=== PATIENT | male | born 1965 | race Caucasian/White ===

== ENCOUNTER 2021-01-12 01:41 | Emergency (ER) | payer BC, SELFPAY ==
[2021-01-12] VITALS (8 sets, daily range): BP systolic 107–157; BP diastolic 61–103; PULSE 65–89; RESP 15–21; TEMP 36.7–36.9; O2SAT 95–98; BMI 27.1
--- NOTE | 2021-01-12 02:02 | CT_ITS ---
PROCEDURE INFORMATION: Exam: CTA Chest With Contrast Exam date and time: 01/12/2021 2:02 AM Age: 55 years old Clinical indication: Shortness of breath; Right-sided; Prior surgery; Surgery date: 6+ months; Surgery type: Pacemaker; Patient HX: SOA, right sided chest pain, fall a couple of days and and sore under right axilla with bruising TECHNIQUE: Imaging protocol: Computed tomographic angiography of the chest with contrast. 3D rendering (Not supervised by radiologist): MIP and/or 3D reconstructed images were created by the technologist. Radiation optimization: All CT scans at this facility use at least one of these dose optimization techniques: automated exposure control; mA and/or kV adjustment per patient size (includes targeted exams where dose is matched to clinical indication); or iterative reconstruction. Contrast material: ISO 370; Contrast volume: 70 ml; Contrast route: INTRAVENOUS (IV); COMPARISON: 1. CR XR CHEST 2V 01/12/2021 2:[address] LUMBAR SPINE W/O CONTRAST 07/01/2014 5:47:18 PM FINDINGS: Limitations: Exam is limited by respiratory motion. Tubes, catheters and devices: Dual lead left-sided cardiac pacing device. Pulmonary arteries: There is no evidence of peripheral filling defects within the pulmonary arterial circulation to suggest pulmonary embolism. Aorta: The aorta is nonaneurysmal and has a normal appearance. No evidence of dissection. Great vessels off aortic arch: Left subclavian artery unremarkable. Partially visualized left common carotid artery unremarkable. Partially visualized right common carotid artery unremarkable. Innominate artery unremarkable. Right axillary artery not well characterized on this examination due to severe beam hardening artifact from venous contrast injection. Lungs: Right upper lobe calcified and non calcified granulomata. Right hilar calcified nodes. Right upper and right middle lobe parenchymal scarring. Mildly hyperaerated lungs consistent with COPD. No lobar consolidation. Superior segment right lower lobe calcified nodule. Scattered left upper and left lower lobe subpleural nodularity. An example nodule on image 2:269 measures 3 mm and is unchanged versus the prior June [address] It is likely a noncalcified granuloma. On image 2:163 there is a 3 mm left lower lobe subpleural nodule with no prior comparison image available. Pleural spaces: There are no pleural effusions present. Heart: The heart is not enlarged. Coronary artery calcification. There is no evidence of pericardial fluid. Lymph nodes: Subcentimeter right paratracheal and subcarinal mediastinal nodes. Above-mentioned calcified right hilar nodes. Bones/joints: Mild thoracic kyphosis. No rib fracture. Soft tissues: Axillary soft tissues and soft tissues in general unremarkable as visualized. IMPRESSION: 1. Small, subpleural left lung nodules. For patients at low risk (minimal or absent history of smoking and of other known risk factors), no routine follow-up is indicated. For patients at high risk (history of smoking or of other known risk factors), consider optional CT Chest at 12 months. (Reference: Issac) 2. COPD. 3. Right axillary soft tissues unremarkable as visualized. The right axillary artery is not well visualized due to beam hardening artifact from adjacent venous contrast infusion. If there is specifically concerned about axillary artery injury, and ultrasound of the right upper extremity vasculature could be considered. REFERENCES: Issac Smith, et al. Guidelines for Management of Incidental Pulmonary Nodules Detected on CT Images: From the Fleischner Society 2017. Ra
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
--- NOTE | 2021-01-12 02:02 | ECG_ITS ---
APPROVED REPORT Exam: Resting ECG HR:69 bpm ECG Measurements Heart Rate 69 AXES CA 102 P 51 QRSd 72 QRS 70 QT 414 T 78 QTc 443 Conclusion Electronic atrial pacemaker Electronically signed by : Librado Osuna, 01/12/2021 08:50:01
--- NOTE | 2021-01-12 02:02 | XR_ITS ---
PROCEDURE INFORMATION: Exam: XR Chest Exam date and time: 01/12/2021 2:02 AM Age: 55 years old Clinical indication: Shortness of breath; Prior surgery; Surgery date: 6+ months; Patient HX: SOA, HX pacemaker SX, smoker TECHNIQUE: Imaging protocol: XR of the chest. Views: 2 views. COMPARISON: No relevant prior studies available. FINDINGS: Tubes, catheters and devices: Dual lead cardiac pacing device. Lungs: Mildly hyperinflated lungs consistent with COPD. Scattered nonspecific linear opacities particularly in the lingula and right upper lobe. Few granulomata. No lobar consolidation. Pleural spaces: Unremarkable. No pleural effusion. No pneumothorax. Heart/Mediastinum: Unremarkable. No cardiomegaly. Bones/joints: Mildly accentuated thoracic kyphosis. Gastrointestinal tract: Bowel gas pattern unremarkable. Other findings: Patient somewhat dextro rotated. IMPRESSION: 1. COPD. 2. Few lingular and right upper lobe linear opacities may be secondary to scarring or atelectasis.
[2021-01-12 02:15] LABS: Basophils # 0.1 K/mm3 (0-0.2); Basophils % 0.4 % (0.1-2.0); Eosinophils # 0.1 K/mm3 (0.0-0.4); Hematocrit 46.3 % (42.0-52.0); Hemoglobin 15.4 g/dL (14.1-18.0); Lymphocytes # 2.1 K/mm3 (0.7-4.5); Lymphocytes % 18.8 % (10-50); Mean Corpuscular HGB Conc 33.2 g/dL (31.8-35.4); Mean Corpuscular Hemoglobin 31.1 pg (27.0-31.2); Mean Corpuscular Volume 93.7 fl (80-94); Mean Platelet Volume 7.9 fl (7.4-10.4); Monocytes # 0.8 K/mm3 (0.1-1.0); Monocytes % 6.9 % (1.7-9.3); Neutrophils # 8.3 K/mm3 (1.8-7.8); Neutrophils % 72.8 % (37.0-80.0); Platelet Count 218 K/mm3 (142-424); Red Blood Count 4.94 M/mm3 (4.60-6.20); Red Cell Distribution Width 13.3 % (11.5-17.5); White Blood Count 11.3 K/mm3 (4.8-10.8)
[2021-01-12 02:21] LABS: Alanine Aminotransferase 14 U/L (12-78); Alkaline Phosphatase 75 U/L (38-126); Aspartate Amino Transferase 24 U/L (17-59); Bilirubin,Direct 0.4 mg/dl (0.0-0.4); Bilirubin,Total 0.4 mg/dl (0.2-1.3); Bilirubin,Unconjugated 0.1 mg/dL (0.0-1.1); Blood Urea Nitrogen 11 mg/dl (9-20); Calcium 8.5 mg/dl (8.4-10.2); Carbon Dioxide 31 mmol/L (22.0-30.0); Chloride 98 mmol/L (98-107); Creatinine Clearance Estimated 98 mL/min (50-200); Estimated Glomerular Filt Rate 88 ml/min (>60); GFR (African American) 106 ML/MIN (>60); Glucose 103 mg/dl (74-100); Sodium 138 mmol/L (136-145)
[2021-01-12 02:26] LABS: C-Reactive Protein 35.1 mg/L (0-4)
[2021-01-12 02:38] LABS: Troponin I < 0.01 ng/ml (0.00-0.034)
[2021-01-12 02:40] LABS: Procalcitonin 0.074 ng/mL (0.0-2.0)
[2021-01-12 02:46] LABS: Erythrocyte Sedimentation Rate 17 mm/hr (0-20)
--- NOTE | 2021-01-12 04:44 | HMH.EDGENADL ---
ED Disposition Clinical Impression: Lumbar radicular pain, Pacemaker Hematoma of right axilla Qualifiers: Encounter type: initial encounter Qualified Code(s): S40.021A - Contusion of right upper arm, initial encounter Disposition: Home, Self-Care Condition on Discharge: Good Instructions: DI for Chronic Pain -- Adult Additional Instructions: see pcp for follow up Prescriptions: predniSONE [Prednisone 20mg Tab] 20 mg PO BID #10 tab Transmission Status: Pending to [facility]/pharmacy #[id number] Referrals: Provider,Referral, [Primary Care Provider] - - Critical Care Critical Care Time: No Attestation: On 01/12/21, the high probability of a clinically significant, sudden or life threatening deterioration of the following system(s) required my full and direct attention, intervention and personal management. The time I documented below is in addition to time spent performing reported procedures but includes the following listed in this critical care notation. Medical Decision Making - Medical Records Medical records reviewed: Yes: I reviewed the patient's medical records. - Real Inquiry Pt receiving controlled substance: No Vital Signs: 01/12/21 01:43 01/12/21 02:01 01/12/21 02:31 Temperature 98.1 F Temperature Source Oral Pulse Rate 68 73 Pulse Rate [Left Radial] 65 Respiratory Rate 21 Blood Pressure 136/79 108/62 L Blood Pressure [Right Arm] 150/103 H Blood Pressure Mean Blood Pressure Mean [Right Arm] 118 Blood Pressure Source [Right Arm] Automatic Cuff Blood Pressure Position [Right Arm] Sitting 02 Sat by Pulse Oximetry 97 97 98 Oxygen Delivery Method Room Air 01/12/21 03:30 01/12/21 04:00 01/12/21 04:30 Temperature Temperature Source Pulse Rate 65 72 74 Pulse Rate [Left Radial] Respiratory Rate Blood Pressure 109/61 L 107/70 L 114/73 Blood Pressure [Right Arm] Blood Pressure Mean 77 81 Blood Pressure Mean [Right Arm] Blood Pressure Source [Right Arm] Blood Pressure Position [Right Arm] 02 Sat by Pulse Oximetry 97 97 95 Oxygen Delivery Method Room Air - Lab Data Lab results reviewed: Yes: I reviewed the patient's lab results. Lab Results 01/12/21 02:06: WBC 11.3 H, RBC 4.94, Hgb 15.4, Hct 46.3, MCV 93.7, MCH 31.1, MCHC 33.2, RDW 13.3, Plt Count 218, MPV 7.9, Neut % (Auto) 72.8, Lymph % (Auto) 18.8, [place] % (Auto) 6.9, Eos % (Auto) 1.0, Baso % (Auto) 0.4, Neut # (Auto) 8.3 H, Lymph # (Auto) 2.1, [place] # (Auto) 0.8, Eos # (Auto) 0.1, Baso # (Auto) 0.1, ESR 17 01/12/21 02:06: Sodium 138, Potassium 4.0, Chloride 98, Carbon Dioxide 31 H, Anion Gap 13.0, BUN 11, Creatinine 0.90, Estimated Creat Clear 98, Estimated GFR 88, Est GFR ( Amer) 106, Glucose 103 H, Calcium 8.5, Total Bilirubin 0.4, Direct Bilirubin 0.4, Conjugated Bilirubin 0.0, Indirect Bilirubin 0.0, Unconjugated Bilirubin 0.1, AST 24, ALT 14, Alkaline Phosphatase 75, Troponin I < 0.01, C-Reactive Protein 35.1 H, Total Protein 7.0, Albumin 4.0, Procalcitonin 0.074 Result diagrams: 01/12/21 02:06 01/12/21 02:06 Orders (Tests/Meds): ED MEDICATIONS Generic Name Dose Route Start Last Admin Trade Name Freq PRN Reason Stop Dose Admin Sodium Chloride 1,000 mls @ 999 mls/hr 01/12/21 02:15 01/12/21 02:16 Sod Chlor 0.9% 1000ml Bag IV 01/12/21 03:15 999 mls/hr .Q1H1M VI Administration Discontinued Medications Generic Name Dose Route Start Last Admin Trade Name Freq PRN Reason Stop Dose Admin Iopamidol 70 ml 01/12/21 03:09 01/12/21 03:10 Iopamidol-370 (76%);100ml Bottle IV 01/12/21 03:10 70 ml ONCE ONE Administration Ketorolac Tromethamine 30 mg 01/12/21 02:09 01/12/21 02:16 Ketorolac 30mg/Ml Vial IV 01/12/21 02:10 30 mg ONCE ONE Administration Methylprednisolone Sodium Succinate 125 mg 01/12/21 02:09 01/12/21 02:16 Methylprednisolone Sod Succ 125mg Vial IV 01/12/21 02:10 125 mg ONCE ONE Administration Sodium Chloride 50 m
== END 2021-01-12 05:23 | disposition home or self-care (01) ==
PROVIDERS: Emergency Provider Emergency Medicine
DX: S40.021A Contusion of right upper arm, initial encounter (principal); W01.0XXA Fall on same level from slipping, tripping and stumbling without subsequent striking against object, initial encounter; Y92.9 Unspecified place or not applicable; M54.16 Radiculopathy, lumbar region; Z95.0 Presence of cardiac pacemaker; J44.9 Chronic obstructive pulmonary disease, unspecified; E78.5 Hyperlipidemia, unspecified; I25.10 Atherosclerotic heart disease of native coronary artery without angina pectoris; Z88.0 Allergy status to penicillin; F17.210 Nicotine dependence, cigarettes, uncomplicated
CPT/HCPCS: 71046; 71275; 72131; 80048; 80076; 84145; 84484; 85025; 85651; 86140; 93005; 96365; 96375; 99283; Q9967

== ENCOUNTER → 2021-02-10 11:02 | Outpatient (POV) | payer BC, SELFPAY ==
[2021-02-10 11:25] VITALS: BP 146/107; PULSE 79; RESP 18; O2SAT 96; BMI 31.9
--- NOTE | 2021-02-10 11:25 | HMH.PMCON ---
Assessment and Plan (1) Degenerative joint disease (DJD) of lumbar spine Status: Chronic Category: Medical Code(s): M47.816 - Spondylosis without myelopathy or radiculopathy, lumbar region (2) Lumbar radiculopathy Status: Chronic Category: Medical Code(s): M54.16 - Radiculopathy, lumbar region - Assessment and plan all Dx Assessment and Plan for all problems:: Patient is not interested in interventional therapies in the clinic. He is requesting oral medications. Patient was dismissed from a spine center due to a failed drug screen with fentanyl noted in the drug screen. He was getting oxycodone at that time. Patient has been advised if he does change his mind regarding interventional therapies in the future we will be happy to see him for injections in the clinic. Patient has been instructed to contact the clinic with any concerns before the next appointment. Dr. Godinez has reviewed this note and agrees with this plan of care. This note was dictated using voice recognition software and make contain errors or omissions. HPI - Data of Consult Patient: new to practice Consult date: 02/10/21 Requesting Physician: Shereen Gillespie APRN Primary Care Provider: Tomeka Callahan MD - Consult Narrative Reason for consult: Low back pain, leg pain History of present illness: Mr. Matt is a 55 year old male who presents today for consult for chronic low back pain and leg pain. Patient says the pain has been ongoing for many years. He says that the pain radiates into his left leg causing him to have numbness and tingling as well as frequent falls due to the pain. He rates his pain 7 out of 10. He has managed with oxycodone in the past, however, according to his records he was discharged from a spine center on 01/28/2021 due to having fentanyl in his drug screen. Patient says he has tried injective therapy in the past with no significant relief. We did discuss that we are interventional only and can only provide him with interventional therapies such as injections and implanted devices for which she is not interested in. Patient says that he will do injections if we give him pills since injections do not work . Patient has been advised that we cannot do this. He has not been compliant at his previous pain management clinic with oral medications. He is not interested in further treatment options in our clinic at this time. CC: Shereen Gillespie APRN [facility] History I have reviewed the patient's past medical history: Yes Medical History: Reports:: Chronic Obstructive Pulmonary Disease (COPD), Coronary Artery Disease, Hyperlipidemia *Have you ever received a pneumonia vaccine?: No *Have you received a flu vaccine this season?: No Other Surgeries: Yes: Cardiac Catheterization Amputation: No Fractures: No - *Social History Smoking Status: Current every day smoker Tobacco Type: cigarettes Alcohol Intake: never Alcohol Intake Frequency:: 0-2 drinks per day Substance Use Type: denies use *Occupational Status:: retired Housing: house Household Members: family *Travel in the last 8 weeks: None Family Hx:: Non-contributory Review of Systems - Review of Systems Review of Systems General: No recent weight changes, no fever, no sleep disturbances Respiratory: No cough, no shortness of air, no recurring pulmonary infections Cardiovascular/peripheral vascular: No chest pain, no palpitations, no edema, no shortness of breath Gastrointestinal: No new onset incontinence, normal bowel movements reported Genitourinary: No new onset incontinence Musculoskeletal: Low back pain, bilateral leg pain Psychiatric: Normal mood/affect Neurological: [Denies weakness in extremities], [denies balance issues] Meds Home Medications Medication Instructions Recorded Confirmed Type albuterol sulfate 90 mcg/actuation 2 puff INHALATION Q6H PRN #6.7 g 09/10/18 01/12/21 Rx aerosol inhaler apixaban 2.5 mg tablet 2.5 mg P
== END ==
PROVIDERS: PCP Family Medicine; Visit Provider Clinical Nurse Specialist Family Health
DX: M47.896 Other spondylosis, lumbar region (principal); M54.16 Radiculopathy, lumbar region
CPT/HCPCS: 99202; G0463

== ENCOUNTER 2023-08-24 21:47 | Inpatient (IN) | payer BC, SELFPAY ==
[2023-08-24] VITALS (7 sets, daily range): BP systolic 104–122; BP diastolic 72–82; PULSE 80–98; RESP 18–28; TEMP 36.8; O2SAT 86–100; BMI 20.7
--- NOTE | 2023-08-24 21:52 | ECG_ITS ---
APPROVED REPORT Exam: Resting ECG HR:94 bpm ECG Measurements Heart Rate 94 AXES GA 152 P 84 QRSd 85 QRS 77 QT 351 T 92 QTc 403 Conclusion SINUS RHYTHM WITH OCCASIONAL SUPRAVENTRICULAR PREMATURE COMPLEXES BORDERLINE ECG UNCONFIRMED REPORT Electronically signed by : Librado Osuna MD 08/25/2023 08:36:20
--- NOTE | 2023-08-24 21:54 | XR_ITS ---
PROCEDURE INFORMATION: Exam: XR Chest Exam date and time: 08/24/2023 9:58 PM Age: 58 years old Clinical indication: Shortness of breath; Additional info: SOA, copd exacerbation TECHNIQUE: Imaging protocol: Radiologic exam of the chest. Views: 1 view. Total images: 1 COMPARISON: CT ANGIO CHEST 01/12/2021 2:53 AM FINDINGS: Tubes, catheters and devices: Status post left subclavian cardiac pacemaker. EKG leads are present. Lungs: Emphysema/COPD. Interval mild accentuation of bibasilar interstitial markings concerning for acute pneumonitis or edema. No confluent airspace consolidation or pulmonary vascular congestion. Pleural spaces: Unremarkable. No pleural effusion. No pneumothorax. Heart/Mediastinum: Unremarkable. No cardiomegaly. No mediastinal widening or hilar enlargement. Bones/joints: Remote fractures multiple left ribs. IMPRESSION: 1. Interval mild accentuation of bibasilar interstitial markings concerning for acute pneumonitis or edema. 2. Emphysema/COPD.
--- NOTE | 2023-08-24 21:56 | ED_ITS ---
Discharge Plan Disposition Patient Disposition: Home, Self-Care Chief Complaint: Shortness of Breath/Dyspnea Prescriptions Prescriptions: No Action atorvastatin 40 mg tablet 40 mg PO HS Patient Comments: TAKE 1 TABLET BY MOUTH EVERY DAY AT NIGHT ropinirole 1 mg tablet 1 mg PO HS Patient Comments: TAKE 1 TABLET BY MOUTH EVERY DAY AT NIGHT ipratropium-albuterol 0.5 mg-3 mg(2.5 mg base)/3 mL solution for nebulization 3 ml INHALATION Q6HP PRN (Reason: Breathing Problems) Patient Comments: INHALE CONTENTS OF 1 VIAL (3 ML) BY NEBULIZATION EVERY 6 HOURS NEEDED FOR SHORTNESS OF BREATH. sotalol 80 mg tablet 80 mg PO BID Patient Comments: TAKE 1 TABLET BY MOUTH TWICE A DAY oxycodone-acetaminophen 10-325 mg tablet 1 tab PO TIDP PRN (Reason: Pain, Moderate) Patient Comments: TAKE 1 TABLET BY MOUTH EVERY 8 HOURS NEEDED FOR CHRONIC PAIN gabapentin 800 mg tablet 800 mg PO TID Patient Comments: TAKE 1 TABLET BY MOUTH THREE TIMES A DAY levothyroxine 50 mcg tablet 50 mcg PO AM Patient Comments: TAKE 1 TABLET BY MOUTH EVERY DAY BEFORE BREAKFAST ferrous sulfate 325 mg (65 mg iron) tablet 325 mg PO BID Patient Comments: TAKE 1 TABLET BY MOUTH 2 TIMES DAILY (WITH MEALS). albuterol sulfate [Ventolin HFA] 90 mcg/actuation HFA aerosol inhaler 2 inh INHALATION Q4HP PRN (Reason: Breathing Problems) Patient Comments: INHALE 2 PUFFS BY MOUTH EVERY 4 HOURS NEEDED FOR WHEEZE STRENGTH: 90 MCG/ACTUATION Eliquis 5 mg tablet 5 mg PO BID Patient Comments: TAKE 1 TABLET BY MOUTH TWICE A DAY NO MORE REFILLS WITHOUT AN APPOINTMENT Trelegy Ellipta 200-62.5-25 mcg blister with device 1 inh INHALATION DAILY Patient Comments: INHALE 1 PUFF BY MOUTH EVERY DAY Referrals Follow up/Referrals: Provider,Referral, MD [Referring] - See instructions Clinical Impressions Clinical Impression: Acute on chronic respiratory failure with hypoxemia, Pneumonia, Acute exacerbation of chronic obstructive pulmonary disease Discharge ED Provider: Douglas Sharp HPI General Chief Complaint: Shortness of Breath/Dyspnea Stated Complaint: breathing problems Time Seen by Provider: 08/24/23 21:53 History of Present Illness HPI narrative: 58-year-old male with history of COPD on 3 to 4 L nasal cannula home hypertension, hyperlipidemia,, CHF status post AICD placement currently on Eliquis twice daily, hypothyroidism, chronic neck and back pain presenting with EMS for being found unconscious. EMS states that they received a call that patient was down and unconscious. They arrived, saturating 53% on room air and cyanotic, largely unresponsive. Blood glucose was around 120. Use [id number] on patient, give DuoNebs, patient became more responsive after the on the way. Patient has no complaints on arrival. Related Data Home Medications Medication Instructions Recorded Confirmed albuterol sulfate 90 mcg/actuation 2 inh inhalation Q4HP PRN 08/24/23 08/24/23 aerosol inhaler (Ventolin HFA) Breathing Problems apixaban 5 mg tablet (Eliquis) 5 mg PO BID 08/24/23 08/24/23 atorvastatin 40 mg tablet 40 mg PO HS 08/24/23 08/24/23 ferrous sulfate 325 mg (65 mg 325 mg PO BID 08/24/23 08/24/23 iron) tablet fluticasone fur. 200 mcg-umeclid 1 inh inhalation DAILY 08/24/23 08/24/23 62.5 mcg-vilant 25 mcg inhalat.powder (Trelegy Ellipta) gabapentin 800 mg tablet 800 mg PO TID 08/24/23 08/24/23 ipratropium 0.5 mg-albuterol 3 mg 3 ml inhalation Q6HP PRN Breathing 08/24/23 08/24/23 (2.5 mg base)/3 mL nebulization Problems soln levothyroxine 50 mcg tablet 50 mcg PO AM 08/24/23 08/24/23 oxycodone-acetaminophen 10 mg-325 1 tab PO TIDP PRN Pain, Moderate 08/24/23 08/24/23 mg tablet ropinirole 1 mg tablet 1 mg PO HS 08/24/23 08/24/23 sotalol 80 mg tablet 80 mg PO BID 08/24/23 08/24/23 Allergies Allergy/AdvReac Type Severity Reaction Status Date / Time PENICILLIN Allergy Unknown S-DIFF. Uncoded 07/27/17 14:03 [facility] Disclaimer: The information contained in this section may have been updated after the kiley tao was seen, as this information can be updated by other users. Social History Smoking Status: Unknown if ever smoked alcohol intake: never substance use type: denies use current occupational status: unemployed Travel in the last 8 weeks: None household members: family housing: house ROS Obtained: Yes All systems reviewed & no additional complaints except as documented Physical Exam General General appearance: alert and lethargic Neck Neck exam: Present trachea midline Chest Chest inspection: Present normal inspection and symmetric chest wall rise Respiratory Respiratory exam: Present other (Decreased breath sounds with minimal air movement bilaterally); Absent respiratory distress, wheezes, stridor, accessory muscle use or prolonged expiratory phase Cardiovascular Cardiovascular exam: Present regular rate and normal rhythm Extremities Exam Extremities exam: Absent edema Neurological Exam Neurological exam: Present alert, oriented X3 and CN II-XII intact Skin Skin exam: Present warm and dry; Absent cyanosis, diaphoresis or pallor HEART Score HEART Score HEART Score assessment performed?: Yes HEART Score: 4 Critical Care Critical Care Time Critical Care Time: Yes (resp) Attestation: On 08/24/23, the high probability of a clinically significant, sudden or life threatening deterioration of the following system(s) required my full and direct attention, intervention and personal management. The time I documented below is in addition to time spent performing reported procedures but includes the following listed in this critical care notation. Total Time Total Critical Care Time: 60 Medical Decision Making Medical Records Medical records reviewed: Yes I reviewed the patient's medical records. Real Inquiry Pt receiving controlled substance: No Real was queried for this patient: No Vital Signs Vital Signs: 08/24/23 21:56 08/24/23 22:05 08/24/23 22:30 Temperature 98.3 F Temperature Source Oral Pulse Rate 98 H 92 H Pulse Rate [Right Radial] 96 H Respiratory Rate 28 H 25 H 26 H Blood Pressure 122/82 115/75 Blood Pressure [Left Arm] 122/82 Blood Pressure Mean [Left Arm] 95 Blood Pressure Source [Left Arm] Automatic Cuff Blood Pressure Position [Left Arm] Sitting 02 Sat by Pulse Oximetry 100 86 L 93 L Oxygen Delivery Method Non-Rebreather Non-Rebreather BiPAP Oxygen Flow Rate (LPM) 15 Lab Data Labs: Lab Results 08/24/23 21:53: VBG pH 7.20 L, VBG pCO2 135.9 H, VBG pO2 39.8, VBG HCO3 52.0 H, VBG Total CO2 56.2 H, VBG O2 Saturation 75.8 H, VBG Base Excess 24.0 H 08/24/23 21:56: WBC 14.4 H, RBC 4.75, Hgb 14.8, Hct 45.6, MCV 95.9 H, MCH 31.1, MCHC 32.4, RDW 13.8, Plt Count 198, MPV 7.9, Neut % (Auto) 53.5, Lymph % (Auto) 40.1, [place] % (Auto) 4.6, Eos % (Auto) 1.1, Baso % (Auto) 0.7, Neut # (Auto) 7.7, Lymph # (Auto) 5.8 H, [place] # (Auto) 0.7, Eos # (Auto) 0.2, Baso # (Auto) 0.1, So dium 138, Potassium 3.8, Chloride 82 L, Carbon Dioxide 55 H*, Anion Gap 4.8 L, BUN 7 L, Creatinine 0.50 L, Estimated Creat Clear 152, Estimated GFR 171, Est GFR ( Amer) 207, Glucose 127 H, Lactate 0.8, Calcium 8.5, Total Bilirubin 0.4, AST 25, ALT 12, Alkaline Phosphatase 110, Troponin I < 0.01, NT-Pro-B Natriuret Pep 374 H, Total Protein 6.6, Albumin 3.3 L, Globulin 3.3 H, Albumin/Globulin Ratio 1.0 L 08/24/23 22:40: VBG pH 7.32, VBG pCO2 86.0 H, VBG pO2 37.6, VBG HCO3 43.2 H, VBG Total CO2 45.9 H, VBG O2 Saturation 78.9 H, VBG Base Excess 17.1 H 08/24/23 21:56 08/24/23 21:56 Response Orders (Tests/Meds): ED MEDICATIONS Generic Name Dose Route Start Last Admin Trade Name Freq PRN Reason Stop Dose Admin Acetaminophen 650 mg 08/24/23 22:52 Acetaminophen 325mg Tab PO 09/23/23 22:51 Q4HP PRN Fever or Mild Pain (1-3) Enoxaparin Sodium 40 mg 08/25/23 09:00 Enoxaparin 40mg/0.4ml Syringe SQ 09/24/23 08:59 DAILY VI Lactated Ringer's 1,000 mls @ 999 mls/hr 08/24/23 22:15 08/24/23 22:43 Lactated Ringer's 1000 Ml Bag IV 08/24/23 23:15 999 mls/hr .Q1H1M ONE Administration Ceftriaxone Sodium 2 gm/ 100 mls @ 200 mls/hr 08/24/23 22:31 08/24/23 22:43 Sodium Chloride IV 08/24/23 23:00 200 mls/hr ONCE ONE Administration Sodium Chloride 1,000 mls @ 50 mls/hr 08/24/23 23:00 Sod Chlor 0.9% 1000ml Bag IV 09/23/23 22:59 .Q20H VI Levofloxacin/Dextrose 750 mg in 150 mls @ 100 mls/hr 08/24/23 23:00 Levofloxacin 750mg/150ml Premix IV 09/03/23 22:59 Q24H VI Morphine Sulfate 2 mg 08/24/23 22:52 Morphine 2mg/Ml Syringe IV 09/23/23 22:51 Q2HP PRN Severe Pain (7-10) Ondansetron HCl 4 mg 08/24/23 22:52 Ondansetron 4mg/2ml Vial IV 09/23/23 22:51 Q8HP PRN Nausea Pantoprazole Sodium 40 mg 08/25/23 21:00 Pantoprazole 40mg Vial IV 09/24/23 20:59 HS VI Discontinued Medications Generic Name Dose Route Start Last Admin Trade Name Freq PRN Reason Stop Dose Admin Albuterol/Ipratropium 6 ml 08/24/23 21:53 Ipratropium/Albuterol 3 Ml Neb IH 08/24/23 21:54 ONCE ONE Aspirin 324 mg 08/24/23 21:53 08/24/23 22:02 Aspirin 81mg Chewable Tablet PO 08/24/23 21:54 324 mg ONCE ONE Administration Magnesium Sulfate 2 gm in 50 mls @ 50 mls/hr 08/24/23 21:53 08/24/23 22:03 Magnesium Sulfate 2gm/50ml Premix IV 08/24/23 22:52 50 mls/hr ONCE ONE Administration Methylprednisolone Sodium Succinate 125 mg 08/24/23 21:53 08/24/23 22:07 Methylprednisolone Sod Succ 125mg Vial IV 08/24/23 21:54 Not Given ONCE ONE ORDERS Category Date Time Status Pulmonology Consult [Consult to Pulmonology] [CONS] Cons 08/24/23 22:52 Active Routine XR chest portable Stat Exams 08/24/23 21:54 Completed Brain Natriuretic Peptide Stat Lab 08/24/23 21:56 Completed Complete Blood Count Auto Diff AMLAB Lab 08/25/23 06:00 Ordered Complete Blood Count Auto Diff Stat Lab 08/24/23 21:56 Completed Comprehensive Metabolic Panel AMLAB Lab 08/25/23 06:00 Ordered Comprehensive Metabolic Panel Stat Lab 08/24/23 21:56 Completed Lactic Acid Stat Lab 08/24/23 21:56 Completed Magnesium AMLAB Lab 08/25/23 06:00 Ordered Troponin I Q3H Lab 08/25/23 01:00 Ordered Troponin I Q3H Lab 08/25/23 04:00 Ordered Troponin I Stat Lab 08/24/23 21:56 Completed Blood Culture Stat Micro 08/24/23 22:23 Received VBG [Venous Blood Gas] Stat RT 08/24/23 21:53 Completed Venous Blood Gas Routine RT 08/24/23 22:40 Completed 12-lead EKG Request [ECG Request] Stat Y 08/24/23 22:06 Ordered MDM Narrative Medical Decision Narrative: 58-year-old male with history of COPD on 3 to 4 L nasal cannula home hypertensi on, hyperlipidemia,, CHF status post AICD placement currently on Eliquis twice daily, hypothyroidism, chronic neck and back pain presenting with EMS for being found unconscious. EMS states that they received a call that patient was down and unconscious. They arrived, saturating 53% on room air and cyanotic, largely unresponsive. Blood glucose was around 120. Use [id number] on patient, give DuoNebs, patient became more responsive after the on the way. Patient has no complaints on arrival. History was obtained via conversation with patient, EMS, chart review. On arrival, patient hemodynamically stable, alert, [oriented x4, ][appropriate, ]GCS [15], moving all extremities spontaneously, pupils equal and reactive to light. Full physical exam performed and significant for tired appearing male, no longer cyanotic. Answering questions appropriately. Decreased, near silent breath sounds bilaterally and hyperexpanded chest. Cardiac exam within normal limits. Patient has end-tidal CO2 measuring 70-80. Normotensive, nontachycardic. Differential includes COPD exacerbation, bronchitis, pneumonia, pneumothorax, sepsis, hypoxemic respiratory failure, hypercarbic respiratory failure, among others. Patient was given DuoNeb x 4, magnesium sulfate, Solu-Medrol, fluid bolus, BiPAP for symptomatic management[ and correction of underlying abnormalities]. Workup independently interpreted and significant for respiratory acidosis with pH 7.2 and CO2 greater than 130. Bicarb elevated at 42. Leukocytosis 14.4, kidney function within normal limits. Troponin and BNP normal. Chest x-ray with concern for pneumonia. See radiology read for full review of final results. [Independent interpretation of EKG shows] sinus rhythm [address] or T wave changes concerning for acute ischemia. Intervals within normal limits. On reevaluation, patient states he is breathing much easier. Breath sounds are little more clear bilaterally. Repeat VBG much improved with pH 7.32, CO2 86, oxygen normalized. Hospital medicine was contacted for evaluation for admission for COPD exacerbation. Patient was given 2 g ceftriaxone and fluid bolus. Given patient presentation, workup, history, this most likely represents hypoxemic respiratory failure in the setting of COPD exacerbation secondary to pneumonia. Because patient high risk for clinical decompensation, deemed appropriate for inpatient admission. Results were relayed to patient who voiced understanding and patient was agreeable to inpatient admission and management. Patient was admitted to the hospital for further definitive management.
[2023-08-24] MEDS: IPRATROPIUM/ALBUTEROL 3 ML NEB 6 ML IH (22:00)
[2023-08-24 22:01] LABS: VBG Oxygen Saturation 75.8 % (50-70); VBG PO2 39.8 mmol/L (28-40); VBG Total CO2 56.2 mmol/L (23-27)
--- NOTE | 2023-08-24 22:01 | PC.NURSE ---
rt and rad at bedside. md at bedside
[2023-08-24] MEDS: ASPIRIN 81MG CHEWABLE TABLET 324 MG PO (22:02)
[2023-08-24 22:03] LABS: VBG PCO2 135.9 mmol/L (35-51)
[2023-08-24] MEDS: MAGNESIUM SULFATE IN WATER 2 GM/50 ML PIGGYBACK IV (22:03)
--- NOTE | 2023-08-24 22:05 | PC.NURSE ---
VBG given to RT, and pt placed on BIPAP
--- NOTE | 2023-08-24 22:07 | PC.NURSE ---
BIPAP settings 20/10 RR18 FIO2 40%
[2023-08-24 22:15] LABS: Basophils # 0.1 K/mm3 (0-0.2); Basophils % 0.7 % (0.1-2.0); Eosinophils # 0.2 K/mm3 (0.0-0.4); Eosinophils % 1.1 % (0.1-12.0); Hematocrit 45.6 % (42.0-52.0); Hemoglobin 14.8 g/dL (14.1-18.0); Lymphocytes # 5.8 K/mm3 (0.7-4.5); Lymphocytes % 40.1 % (10-50); Mean Corpuscular HGB Conc 32.4 g/dL (31.8-35.4); Mean Corpuscular Hemoglobin 31.1 pg (27.0-31.2); Mean Corpuscular Volume 95.9 fl (80-94); Mean Platelet Volume 7.9 fl (7.4-10.4); Monocytes # 0.7 K/mm3 (0.1-1.0); Monocytes % 4.6 % (1.7-9.3); Neutrophils # 7.7 K/mm3 (1.8-7.8); Neutrophils % 53.5 % (37.0-80.0); Platelet Count 198 K/mm3 (142-424); Red Blood Count 4.75 M/mm3 (4.60-6.20); Red Cell Distribution Width 13.8 % (11.5-17.5); White Blood Count 14.4 K/mm3 (4.8-10.8)
[2023-08-24 22:16] LABS: Chloride 82 mmol/L (98-107); Potassium 3.8 mmoL/L (3.5-5.1); Sodium 138 mmol/L (136-145)
[2023-08-24 22:18] LABS: Alanine Aminotransferase 12 U/L (12-78); Aspartate Amino Transferase 25 U/L (17-59); Blood Urea Nitrogen 7 mg/dl (9-20); Creatinine Clearance Estimated 152 mL/min (50-200); Estimated Glomerular Filt Rate 171 ml/min (>60); GFR (African American) 207 ML/MIN (>60)
[2023-08-24 22:19] LABS: Albumin Level 3.3 g/dl (3.5-5.0); Alkaline Phosphatase 110 U/L (38-126); Bilirubin,Total 0.4 mg/dl (0.2-1.3); Calcium 8.5 mg/dl (8.4-10.2); Globulin 3.3 g/dL (1.3-3.2); Glucose 127 mg/dl (74-100); Total Protein,Serum 6.6 g/dl (6.3-8.2)
[2023-08-24 22:28] LABS: NT Pro Brain Natriuretic Pep. 374 pg/mL (0-125)
[2023-08-24 22:34] LABS: Troponin I < 0.01 ng/ml (0.00-0.034)
[2023-08-24 22:41] LABS: Lactic Acid 0.8 mmol/L (0.7-2.1)
[2023-08-24] MEDS: CEFTRIAXONE SODIUM 2 GM in 0.9 % SODIUM CHLORIDE 100 ML IV (22:43)
[2023-08-24] MEDS: LACTATED RINGERS 1000ML 1,000 ML 999 ML IV (22:43)
[2023-08-24 22:44] LABS: VBG Base Excess 17.1 mmol/L (-2.4-2.3); VBG HCO3 43.2 mmol/L (23-30); VBG Oxygen Saturation 78.9 % (50-70); VBG PH 7.32 mmol/L (7.31-7.41); VBG PO2 37.6 mmol/L (28-40); VBG Total CO2 45.9 mmol/L (23-27)
[2023-08-24 22:50] LABS: Anion Gap 4.8 mEq/L (5-15); Carbon Dioxide 55 mmol/L (22.0-30.0)
--- NOTE | 2023-08-24 22:51 | PC.NURSE ---
spoke with house re: admission. waiting on bed assignment at this time.
--- NOTE | 2023-08-24 22:51 | PC.NURSE ---
Respiratory called and advised new CO2 just came back at 86. Dr. Sharp informed
--- NOTE | 2023-08-24 22:54 | P.HP_ITS ---
History of Present Illness *Admission Date: 08/24/23 *Reason for visit:: SOB *History of present illness: This is a 58-year-old male PMHx of COPD on 3 to 4 L nasal cannula home, current smoker, hypertension, hyperlipidemia,, CHF, AICD placement currently on Eliquis twice daily, hypothyroidism, chronic neck and back pain brought in by EMS for evaluation of shortness of breath. Per ER documentation EMS stated that they received a call that patient was down and unconscious. They arrived, saturating 53% on room air and cyanotic, largely unresponsive. Blood glucose was around 120. Use [id number] on patient, give DuoNebs, patient became more responsive after the on the way. Patient has no complaints on arrival. Patient stated he was feeling bad and asked daugther to call for help, but he denied loss of consciousness. Admitted for further treatment and management. [facility] Disclaimer: The information contained in this section may have been updated after the patient was seen, as this information can be updated by other users. Medical History (Updated 08/25/23 @ 11:16 by Lourdes Lua APRN) Asthma COPD (chronic obstructive pulmonary disease) Social History (Updated 08/25/23 @ 00:46 by Flores Avendano RN) Smoking Status: Current some day smoker tobacco type: cigarettes packs per day: 3 alcohol intake: never substance use type: denies use current occupational status: unemployed Travel in the last 8 weeks: None household members: family housing: house Review of Systems Review of Systems Review of systems:: pertinent systems reviewed and negative unless documented below Meds Home Medications and Allergies Home Medications Medication Instructions Recorded Confirmed Type albuterol sulfate 90 mcg/actuation 2 inh inhalation Q4HP PRN 08/24/23 08/25/23 History aerosol inhaler (Ventolin HFA) Shortness Of Breath Or Wheezing apixaban 5 mg tablet (Eliquis) 5 mg PO BID 08/24/23 08/25/23 History atorvastatin 40 mg tablet 40 mg PO HS 08/24/23 08/25/23 History ferrous sulfate 325 mg (65 mg 325 mg PO BIDWMEAL 08/24/23 08/25/23 History iron) tablet fluticasone fur. 200 mcg-umeclid 1 inh inhalation DAILY 08/24/23 08/25/23 History 62.5 mcg-vilant 25 mcg inhalat.powder (Trelegy Ellipta) gabapentin 800 mg tablet 800 mg PO TID 08/24/23 08/25/23 History ipratropium 0.5 mg-albuterol 3 mg 3 ml inhalation Q6H PRN Shortness 08/24/23 08/25/23 History (2.5 mg base)/3 mL nebulization Of Breath Or Wheezing soln levothyroxine 50 mcg tablet 50 mcg PO AM 08/24/23 08/25/23 History ropinirole 1 mg tablet 1 mg PO HS 08/24/23 08/25/23 History sotalol 80 mg tablet 80 mg PO BID 08/24/23 08/25/23 History acetylcysteine 600 mg capsule 600 mg PO BID 08/25/23 08/25/23 History furosemide 40 mg tablet 40 mg PO DAILY 08/25/23 08/25/23 History guaifenesin 600 mg tablet, 600 mg PO BID 08/25/23 08/25/23 History extended release 12 hr naloxone 4 mg/actuation nasal spray 4 mg intranasal Q2M PRN Opioid 08/25/23 08/25/23 History Reversal oxycodone-acetaminophen 10 mg-325 1 tab PO TID PRN Chronic Pain 08/25/23 08/25/23 History mg tablet potassium chloride 10 mEq 10 meq PO AM 08/25/23 08/25/23 History tablet,extended release sulfamethoxazole 800 1 tab PO Q12H 08/25/23 08/25/23 History mg-trimethoprim 160 mg tablet New Prescriptions to Start Prescriptions: Allergies Allergy/AdvReac Type Severity Reaction Status Date / Time Penicillins Allergy Difficulty Verified 08/25/23 07:12 Breathing Exam Data for Last 24 hours Vital signs and Labs for Last 24 Hours: Temp Pulse Resp BP Pulse Ox O2 Del Method O2 Flow Rate 98.3 F 92 H 26 H 115/75 93 L BiPAP 15 08/24/23 21:56 08/24/23 22:30 08/24/23 22:30 08/24/23 22:30 08/24/23 22:30 08/24/23 22:30 08/24/23 22:05 FiO2 100 08/24/23 21:56 Laboratory Results - last 24 hr 08/24/23 21:53: VBG pH 7.20 L, VBG pCO2 135.9 H, VBG pO2 39.8, VBG HCO3 52.0 H, VBG Total CO2 56.2 H, VBG O2 Saturation 75.8 H, VBG Base Excess 24.0 H 08/24/23 21:56: WBC 14.4 H, RBC 4.75, Hgb 14.8, Hct 45.6, MCV 95.9 H, MCH 31.1, MCHC 32.4, RDW 13.8, Plt Count 198, MPV 7.9, Neut % (Auto) 53.5, Lymph % (Auto) 40.1, [place] % (Auto) 4.6, Eos % (Auto) 1.1, Baso % (Auto) 0.7, Neut # (Auto) 7.7, Lymph # (Auto) 5.8 H, [place] # (Auto) 0.7, Eos # (Auto) 0.2, Baso # (Auto) 0.1, Sodium 138, Potassium 3.8, Chloride 82 L, Carbon Dioxide 55 H*, Anion Gap 4.8 L, BUN 7 L, Creatinine 0.50 L, Estimated Creat Clear 152, Estimated GFR 171, Est GFR ( Amer) 207, Glucose 127 H, Lactate 0.8, Calcium 8.5, Total Bilirubin 0.4, AST 25, ALT 12, Alkaline Phosphatase 110, Troponin I < 0.01, NT-Pro-B Natriuret Pep 374 H, Total Protein 6.6, Albumin 3.3 L, Globulin 3.3 H, Albumin/Globulin Ratio 1.0 L 08/24/23 22:40: VBG pH 7.32, VBG pCO2 86.0 H, VBG pO2 37.6, VBG HCO3 43.2 H, VBG Total CO2 45.9 H, VBG O2 Saturation 78.9 H, VBG Base Excess 17.1 H I & O for Last 24 hours: Intake & Output 08/21/23 08/22/23 08/23/23 08/24/23 23:59 23:59 23:59 23:59 Weight 65.771 kg Constitutional Constitutional: mild distress, thin and cooperative *Routine HEENT Exam Head: Present normocephalic and atraumatic Eye: Present EOMI, PERRL and normal accommodation ENT: Present mucous membranes moist *Routine Neck Exam Neck: Present supple, full ROM and trachea midline *Routine Respiratory Exam Respiratory: Present decreased breath sounds, wheezes, diminished air movement and symmetric chest movement *Routine Cardiovascular Exam Cardiovascular: Present RRR, Normal S1 and Normal S2 *Routine Abdominal Exam Abdominal: Present soft and normoactive bowel sounds; Absent organomegaly *Routine Rectal Exam Rectal:: deferred *Routine Genitalia Exam Genitalia:: deferred *Routine Extremities Exam Extremities: Present clubbing, full ROM and pulses intact; Absent cyanosis or edema *Routine Skin Exam Skin: Present intact, dry, warm and ecchymosis *Routine Neurological Exam Neurological: Present alert, oriented X3, normal reflexes, moving all extremities and normal speech Routine Psychiatric Exam Psychiatric: Present normal thought process, cooperative and good judgment H&P: Result Imaging and Cardiology EKG: Status: image reviewed by me and Preliminary report Chest x-ray: Status: image reviewed by me, Preliminary report and final report Assessment and Plan *Assessment and plan (1) Acute hypercapnic respiratory failure: Status: Acute Category: Medical Code(s): J96.02 - Acute respiratory failure with hypercapnia (2) Pneumonia: Status: Acute Qualifiers: Laterality: bilateral Lung location: lower lobe of lung Pneumonia type: due to unspecified organism Qualified Code(s): J18.9 - Pneumonia, unspecified organism Category: Medical Code(s): J18.9 - Pneumonia, unspecified organism (3) Acute exacerbation of chronic obstructive pulmonary disease: Status: Acute Category: Medical Code(s): J44.1 - Chronic obstructive pulmonary disease with (acute) exacerbation (4) Pacemaker: Status: Acute Category: Medical Code(s): Z95.0 - Presence of cardiac pacemaker (5) Degenerative joint disease (DJD) of lumbar spine: Status: Chronic Qualifiers: Spinal osteoarthritis complication: with radiculopathy Qualified Code( s): M47.26 - Other spondylosis with radiculopathy, lumbar region Category: Medical Code(s): M47.816 - Spondylosis without myelopathy or radiculopathy, lumbar region (6) Current smoker: Status: Acute Category: Social Hx Code(s): F17.200 - Nicotine dependence, unspecified, uncomplicated Plan 58-year-old male PMHx of COPD on 3 to 4 L nasal cannula home, current smoker, hypertension, hyperlipidemia,, CHF, AICD placement currently on Eliquis twice daily, hypothyroidism, chronic neck and back pain brought in by EMS for evaluation of shortness of breath.on Arrival patient was found hypoxic. Labs showed severe hypercapnia with mild leukocytocis. patient was placed on BIPAP. CXR was obtained theres is questionable bibasilar opacities. findings discussed with ER provider. Agreed for admission. Plan as follow: -Acute hypercapnic respiratory failure, bilateral bibasilar pneumonia: Exacerbation of COPD: Admit patient for medical services. Dispo MedSurg Pulmonology consult. BiPAP as needed. Monitor for O2 sat. currently on 3 L. Repeat blood gas in the morning. Started on Levaquin IV empirically Monitor CBC daily Monitor for sepsis per unit protocol Solu-Medrol IV given in the ER DuoNeb every 6h for wheezing of shortness of breath Resume home regimen. Patient on Trelegy Ellipta -History of CHF Pacemaker in situ BNP is slightly elevated. 1 dose Lasix given Sotalol 80 mg twice daily Monitor heart rate and rhythm CMP daily May defer cardiology consult -Degenerative joint disease of the lumbar spine, chronic lumbar pain: Patient on oxycodone at home Resumed. Current smoker Education provided. Smoking cessation. On nicotine patch On Eliquis. Low concern for DVT. Protonix for GI bleed protection Full code Attending attestation Patient was seen and evaluated at the bedside myself, agree with GHANSHYAM note.
--- NOTE | 2023-08-24 23:06 | PC.NURSE ---
Addendum entered by Danuta Brock RN 08/24/23 23:21: IPAP 20 EPAP 12 Original Note: Pt titrated to 30% fio2
[2023-08-24] MEDS: LEVOFLOXACIN/D5W 750 MG/150 ML 750 MG/150 ML PIGGYBACK 100 MG IV (23:18)
[2023-08-25] VITALS (23 sets, daily range): BP systolic 86–130; BP diastolic 33–87; PULSE 70–111; RESP 16–27; TEMP 36.3–36.8; O2SAT 88–99; BMI 19.0
--- NOTE | 2023-08-25 00:01 | PC.NURSE ---
Report given to Lupe Avendano RN
--- NOTE | 2023-08-25 00:02 | PC.NURSE ---
Notified RT of pt being transported to 2nd floor.
[2023-08-25] MEDS: OXYCODONE 10MG W/APAP 325MG TABLET 1 EACH PO (01:32)
[2023-08-25] MEDS: 0.9 % SODIUM CHLORIDE 1000ML 1,000 ML 50 ML IV (01:33)
[2023-08-25 01:43] LABS: Troponin I < 0.01 ng/ml (0.00-0.034)
[2023-08-25] MEDS: FUROSEMIDE 40MG/4ML VIAL 40 MG IV (02:17)
[2023-08-25 04:19] LABS: Basophils % 0.2 % (0.1-2.0); Eosinophils % 0.4 % (0.1-12.0); Hematocrit 40.2 % (42.0-52.0); Lymphocytes # 0.8 K/mm3 (0.7-4.5); Mean Corpuscular HGB Conc 32.9 g/dL (31.8-35.4); Mean Corpuscular Hemoglobin 31.4 pg (27.0-31.2); Mean Corpuscular Volume 95.5 fl (80-94); Mean Platelet Volume 8.2 fl (7.4-10.4); Monocytes # 0.1 K/mm3 (0.1-1.0); Monocytes % 1.5 % (1.7-9.3); Neutrophils % 87.9 % (37.0-80.0); Platelet Count 153 K/mm3 (142-424); Red Blood Count 4.21 M/mm3 (4.60-6.20); Red Cell Distribution Width 13.9 % (11.5-17.5); White Blood Count 7.9 K/mm3 (4.8-10.8)
[2023-08-25 04:22] LABS: MANUAL DIFFERENTIAL MANUAL DIFFERENTIAL (MANUAL DIFF)
[2023-08-25 04:26] LABS: Hemoglobin 13.2 g/dL (14.1-18.0)
[2023-08-25 04:39] LABS: Troponin I < 0.01 ng/ml (0.00-0.034)
[2023-08-25 04:40] LABS: Alanine Aminotransferase 10 U/L (12-78); Albumin Level 2.8 g/dl (3.5-5.0); Alkaline Phosphatase 97 U/L (38-126); Aspartate Amino Transferase 20 U/L (17-59); Bilirubin,Total 0.2 mg/dl (0.2-1.3); Blood Urea Nitrogen 6 mg/dl (9-20); Calcium 7.9 mg/dl (8.4-10.2); Chloride 83 mmol/L (98-107); Creatinine Clearance Estimated 139 mL/min (50-200); Estimated Glomerular Filt Rate 171 ml/min (>60); GFR (African American) 207 ML/MIN (>60); Globulin 2.8 g/dL (1.3-3.2); Glucose 173 mg/dl (74-100); Potassium 3.6 mmoL/L (3.5-5.1); Sodium 137 mmol/L (136-145); Total Protein,Serum 5.6 g/dl (6.3-8.2)
[2023-08-25 04:43] LABS: Anion Gap 17.6 mEq/L (5-15)
[2023-08-25 04:48] LABS: Carbon Dioxide 54 mmol/L (22.0-30.0)
[2023-08-25 04:59] LABS: Lymphocytes % 6 % (10-50); Neutrophils % 94 % (42-76); Total Cells Counted 100
[2023-08-25 05:00] LABS: Platelet Estimate Normal; Stomatocytes 1+
[2023-08-25 06:30] LABS: ABG Base Excess 27.4 mmol/L (-2.4-2.3); ABG HCO3 55.5 mmhg (22.0-26.0); ABG Oxygen Saturation 98 % (90-100)
[2023-08-25] MEDS: IPRATROPIUM/ALBUTEROL 3 ML NEB IH ×3 (06:38→18:24)
[2023-08-25 06:39] LABS: Allen's Test ACCEPTABLE; Source R RADIAL
[2023-08-25 06:40] LABS: ABG PCO2 146.5 mmhg (35.0-45.0)
--- NOTE | 2023-08-25 07:16 | PC.NURSE ---
Pt a/o x4 t/o majority of shift and was tolerating 3 L nc well with sats in low-mid 90s. 0615 RT notified this RN of pt ams and twitching. On assessment pt is able to answer questions and follow commands but is very fatigued. RT alban ABG and placed pt back on bipap at 18/6, rate 20, 30 % fio2. Pt had not had any output since administering IV lasix. Pt was encouraged to try and use urinal but was unable. Bladder scanned pt - >833ml. Notified E Heriberto TRAN. In/out cath pt and got 815ml urine- clear, yellow.
--- NOTE | 2023-08-25 09:26 | HMH.PHAINT1 ---
Pharmacy Intervention Comments: Home med list verified with external pharmacy list and patient's primary care physician via phone.
--- NOTE | 2023-08-25 09:42 | CT_ITS ---
FINAL REPORT CLINICAL HISTORY: syncope, hypoxia COMPARISON: 01/12/2021 FINDINGS: Thin section axial CT images of the chest were obtained with contrast. 3D reformatted images were also obtained. This study was performed with techniques to keep radiation doses as low as reasonably achievable (ALARA). Individualized dose reduction techniques using automated exposure control or adjustment of mA and/or kV according to the patient's size were employed. There is no evidence of pulmonary embolism. There is no evidence of thoracic aortic aneurysm or dissection. There is no evidence of mediastinal or hilar mass or adenopathy. Left subclavian pacer is identified. There is moderate emphysema with mild pulmonary scarring. Multiple calcified granulomas are identified. Multiple small noncalcified nodules are identified, most in the lower lobes. Some of these nodules are new and some are stable. The largest nodule in the left lower lobe measures 6 mm, new since prior. There is gallbladder wall thickening which is nonspecific. IMPRESSION: No evidence of pulmonary embolism. Multiple small noncalcified nodules as detailed above. Recommend chest CT in 6 months. Nonspecific gallbladder wall thickening. Consider gallbladder ultrasound. Reviewed, Interpreted and Dictated by Antonio Abebe III, MD Transcribed by Elizabeth Whitman Authenticated and [facility]
--- NOTE | 2023-08-25 09:43 | CA_ITS ---
APPROVED REPORT EXAM: Comprehensive 2D, Doppler, and color-flow Echocardiogram Diagnostic Imaging Manager: JOHANN Eastman, RVS Ht: 5 ft 8 in Wt: 132lbs BSA: 1.71 BP: 115/75 mmHg Indications: COPD exacerbation, smoker, PHTN, Respiratory failure, CHF, AICD, BIPAP, Home O2 Echo Enhancing Agent Comments: Extremely limited windows due to body habitus, lung impedance, Patient supine throughout 2D Dimensions IVSd 0.93 cm LVEF (Visual) 51.40 % PWd 0.97 cm LA Volume 25.70 mL LVDd 3.52 cm LA Volume Index [id number] mL/m2 (M/F) 16-34 LVDs 2.62 cm EF AP4 50.30 % Aortic Root 3.04 cm GL Strain -11.4 % Left Atrium 3.09 cm RVID Base (AP4) 3.34 cm (M/F) 2.5-4.1 LVOT 1.84 cm (M/F) 1.5-2.5 M-Mode Dimensions LVDd 3.52 cm (3.5-5.7) Ao Diam 3.40 cm (2.0-3.7) LVDs 3.27 cm (3.5-5.7) IVSd 0.93 cm (0.6-1.1) PWd 0.97 cm (0.6-1.1) EF (Teich) 47.70% EPSs 0.53 cm FS 24.40% EDV (Teich) 82.60 mL TAPSE 1.83 (<1.7) ESV (Teich) 43.20 mL LV Diastology E Decel Time 206 (160-240 msec) E/A Ratio 0.86 MED E' 6.4 (>= 7 cm/sec) MED A' 9.70 cm/s E'/MED E' Ratio 8.09 (<= 14) LAT E' 6.7 (>= 10 cm/sec) LAT A' 7.60 cm/s E/LAT E' Ratio 7.73 (<= 14) Aortic Valve LVOT Max 101.0 (70-110 cm/s) STU Index 1.52 cm2/m2 LVOT VTI 18.22 cm AoV Peak Stevenson. 107.0 (50-130 cm/s) AO Mean GR. 2.30 (<5 mmHg) AO VTI 18.6 (18-25 cm) STU (VTI) 2.60 (2.5-4.5 cm2) Mitral Valve MV E Max Stevenson. 52.0 (40-130 cm/s) MV A Velocity 60.0 (40-130 cm/s) E/A Ratio 0.86 MV Decel. Time 206 (160-240 ms) Tricuspid Valve TR P. Velocity 341.00 cm/s RAP Estimate 10.00 mmHg RVSP 56.50 mmHg Left Ventricle The left ventricle is normal size. The left ventricular systolic function is normal. The left ventricular ejection fraction is within the normal range. There is increased LV wall thickness. There is normal LV segmental wall motion. The left ventricular diastolic function is normal. LVEF is 55%. Right Ventricle The right ventricle is mildly dilated. Right ventricular systolic function is mildly reduced. Atria The left atrium size is normal. The right atrium size is normal. There is no Doppler evidence of interatrial shunt. Aortic Valve The aortic valve opens well. There is no aortic valvular stenosis. No aortic regurgitation is present. Mitral Valve The mitral valve is normal in structure. No evidence of mitral valve stenosis. Trace mitral regurgitation. Tricuspid Valve The tricuspid valve leaflets are thin and pliable. Mild tricuspid regurgitation. RVSP is 40-45 mmHg. Pulmonic Valve The pulmonary valve is normal in structure. Trace pulmonic regurgitation. Great Vessels The aortic root is normal in size. The ascending aorta is not well-visualized. The IVC is normal in size, but collapses < 50% with respirophasic variation. The RA pressure is estimated at 8 mmHg. Pericardium There is no pericardial effusion. Other Information Study Quality: Fair Conclusion Normal LV systolic function. Mild RV dilation with mild RV dysfunction. Mild TR. Elevated RVSP 40-45 mmHg. Electronically signed by : Bárbara Dinero MD 08/26/2023 02:36:07
[2023-08-25 09:46] LABS: ABG Base Excess 24.3 mmol/L (-2.4-2.3); ABG HCO3 49.3 mmhg (22.0-26.0); ABG Oxygen Saturation 89 % (90-100); ABG PH 7.39 mmol/L (7.35-7.45); ABG PO2 50.5 mmhg (80-100); ABG TCO2 51.8 mmhg (23-27)
[2023-08-25 09:52] LABS: Allen's Test Acceptable; Oxygen 30 %; Source L Radial; Tidal Volume 18/6; Vent Rate 20
[2023-08-25] MEDS: WATER IV (09:52)
[2023-08-25] MEDS: DEXTROSE 5% IV (09:52)
[2023-08-25] MEDS: NOREPINEPHRINE IV (09:52)
[2023-08-25 09:53] LABS: ABG PCO2 83.1 mmhg (35.0-45.0)
--- NOTE | 2023-08-25 09:59 | EXP.CARD.CON ---
History of Present Illness History of Present Illness Consult date: 08/25/23 Requesting physician: Claudy Mckenzie Consult reason: shortness of breath Chief complaint: unresponsive, soa History of present illness: Hospitalist note:This is a 58-year-old male PMHx of COPD on 3 to 4 L nasal cannula home, current smoker, hypertension, hyperlipidemia,, CHF, AICD placement currently on Eliquis twice daily, hypothyroidism, chronic neck and back pain brought in by EMS for evaluation of shortness of breath. Per ER documentation EMS stated that they received a call that patient was down and unconscious. They arrived, saturating 53% on room air and cyanotic, largely unresponsive. Blood glucose was around 120. Use [id number] on patient, give DuoNebs, patient became more responsive after the on the way. Patient has no complaints on arrival. Patient stated he was feeling bad and asked daugther to call for help, but he denied loss of consciousness. Admitted for further treatment and management. Cardiology note, history obtained from chart and daughter due to patient's altered mental status currently: 58-year-old white male with past medical history of coronary artery disease, pacemaker, paroxysmal atrial fibrillation on Eliquis, hypertension, COPD on 3 to 4 L of oxygen continuously and hyperlipidemia presented to emergency department with initial complaint per EMS of patient being found unconscious. EMS reported that they received a call the patient was found down and unconscious and upon their arrival patient's oxygen saturations were 53% on room air and patient was cyanotic and largely unresponsive. Initial blood glucose upon their arrival was 120. [id number] was used on patient and patient was given DuoNebs and quickly became more responsive on the way into emergency department. Upon arrival to ED patient denied any complaints. Initial blood gas showed respiratory acidosis with a pH of 7.2 and CO2 greater than 130. Bicarb was elevated at 42. WBC was 14.4 and kidney function was within normal limits. Troponin and BNP were normal. Chest x-ray was concerning for pneumonia per ED physician interpretation. Initial EKG showed sinus rhythm with occasional PVCs at a rate of 94. Patient was started on BiPAP and a repeat VBG showed an improvement in pH of 7.32 and CO2 to 86. Patient was admitted for COPD exacerbation secondary to pneumonia and started on 2 g of Rocephin and given a fluid bolus. Nurse reports that at sometime throughout the evening patient was taken off of BiPAP and afterwards he started to decline. Reports this morning patient had altered mental status and was non-responsive to questions. Blood gas this morning shows a pH of 7.2 and a pCO2 of 146. Patient was placed back on BiPAP and a recent repeat blood gas shows an improvement of pH to 7.39 and CO2 improved to 83.1. Patient is now awake and alert and more responsive to commands. Patient was hypotensive with systolic in the 80s requiring Levophed drip to be initiated. Blood pressure is now stable. Other labs as follow: WBC 7.9, hemoglobin 13.2, hematocrit 40, sodium 137, potassium 3.6, anion gap 17.6, creatinine 0.5. Serial troponins remain negative. Official chest x-ray report shows interval mild accentuation and bibasilar interstitial markings concerning for acute pneumonitis or edema, emphysema and COPD. Patient remains in normal sinus rhythm at a rate of 70. [facility] Disclaimer: The information contained in this section may have been updated after the patient was seen, as this information can be updated by other users. Medical History (Updated 08/25/23 @ 11:16 by Lourdes Lua APRN) Asthma COPD (chronic obstructive pulmonary disease) Social History (Updated 08/25/23 @ 00:46 by Flores Avendano RN) Smoking Status: Current some day smoker tobacco type: cigarettes packs per day: 3 alcohol intake: never substance use type: denies use current occupational status: unemployed Travel in the last 8 weeks: None household members: family housing: house Review of Systems Review of Systems Review of systems:: pertinent systems reviewed and negative unless documented below Constitutional Constitutional: Reports system reviewed and no additional complaints, except as documented and Reports as per HPI Exam Data for Last 24 hours Vital signs and Labs for Last 24 Hours: Temp Pulse Resp BP Pulse Ox O2 Del Method O2 Flow Rate 97.4 F L 88 21 87/59 L 91 L BiPAP 30 08/25/23 08:00 08/25/23 09:00 08/25/23 09:00 08/25/23 09:00 08/25/23 09:00 08/25/23 09:00 08/25/23 09:00 FiO2 30 08/25/23 08:00 Laboratory Results - last 24 hr 08/24/23 21:53: VBG pH 7.20 L, VBG pCO2 135.9 H, VBG pO2 39.8, VBG HCO3 52.0 H, VBG Total CO2 56.2 H, VBG O2 Saturation 75.8 H, VBG Base Excess 24.0 H 08/24/23 21:56: WBC 14.4 H, RBC 4.75, Hgb 14.8, Hct 45.6, MCV 95.9 H, MCH 31.1, MCHC 32.4, RDW 13.8, Plt Count 198, MPV 7.9, Neut % (Auto) 53.5, Lymph % (Auto) 40.1, [place] % (Auto) 4.6, Eos % (Auto) 1.1, Baso % (Auto) 0.7, Neut # (Auto) 7.7, Lymph # (Auto) 5.8 H, [place] # (Auto) 0.7, Eos # (Auto) 0.2, Baso # (Auto) 0.1, Sodium 138, Potassium 3.8, Chloride 82 L, Carbon Dioxide 55 H*, Anion Gap 4.8 L, BUN 7 L, Creatinine 0.50 L, Estimated Creat Clear 152, Estimated GFR 171, Est GFR ( Amer) 207, Glucose 127 H, Lactate 0.8, Calcium 8.5, Total Bilirubin 0.4, AST 25, ALT 12, Alkaline Phosphatase 110, Troponin I < 0.01, NT-Pro-B Natriuret Pep 374 H, Total Protein 6.6, Albumin 3.3 L, Globulin 3.3 H, Albumin/Globulin Ratio 1.0 L 08/24/23 22:40: VBG pH 7.32, VBG pCO2 86.0 H, VBG pO2 37.6, VBG HCO3 43.2 H, VBG Total CO2 45.9 H, VBG O2 Saturation 78.9 H, VBG Base Excess 17.1 H 08/25/23 01:15: Troponin I < 0.01 08/25/23 04:15: WBC 7.9 D, RBC 4.21 L, Hgb 13.2 L D, Hct 40.2 L, MCV 95.5 H, MCH 31.4 H, MCHC 32.9, RDW 13.9, Plt Count 153, MPV 8.2, Neut % (Auto) 87.9 H, Lymph % (Auto) 10.0, [place] % (Auto) 1.5 L, Eos % (Auto) 0.4, Baso % (Auto) 0.2, Neut # (Auto) 7.0, Lymph # (Auto) 0.8, [place] # (Auto) 0.1, Eos # (Auto) 0.0, Baso # (Auto) 0.0, Total Counted 100, Neutrophils % (Manual) 94 H, Lymphocytes % (Manual) 6 L, Platelet Estimate Normal, RBC Morphology Not Reportable, Stomatocytes 1+, Sodium 137, Potassium 3.6, Chloride 83 L, Carbon Dioxide 54 H*, Anion Gap 17.6 H, BUN 6 L, Creatinine 0.50 L, Estimated Creat Clear 139, Estimated GFR 171, Est GFR ( Amer) 207, Glucose 173 H D, Calcium 7.9 L, Magnesium 2.0, Total Bilirubin 0.2, AST 20, ALT 10 L, Alkaline Phosphatase 97, Troponin I < 0.01, Total Protein 5.6 L, Albumin 2.8 L D, Globulin 2.8, Albumin/Globulin Ratio 1.0 L 08/25/23 06:00: Specimen Source R radial, O2 % 5lpm, ABG pH 7.20 L*, ABG pCO2 146.5 H, ABG pO2 106.0 H, ABG HCO3 55.5 H, ABG Total CO2 60.0 H, ABG O2 Saturation 98, ABG Base Excess 27.4 H, Curtis Test Acceptable 08/25/23 09:19: Specimen Source L radial, O2 % 30, ABG pH 7.39, ABG pCO2 83.1 H, ABG pO2 50.5 L, ABG HCO3 49.3 H, ABG Total CO2 51.8 H, ABG O2 Saturation 89 L, ABG Base Excess 24.3 H, Curtis Test Acceptable, Vent Rate 20, Tidal Volume 18/6 I & O for Last 24 hours: Intake & Output 08/22/23 08/23/23 08/24/23 08/25/23 23:59 23:59 23:59 23:59 Intake Total 1524 / 1524 Output Total 1115 / 1115 Balance 409 / 409 Weight 145 lb 132 lb 14.4 oz *Routine Respiratory Exam Respiratory: Present rhonchi and wheezes *Routine Cardiovascular Exam Cardiovascular: Present Normal S1 and Normal S2 Meds Home Medications and Allergies Home Medications Medication Instructions Recorded Confirmed Type albuterol sulfate 90 mcg/actuation 2 inh inhalation Q4HP PRN 08/24/23 08/25/23 History aerosol inhaler (Ventolin HFA) Shortness Of Breath Or Wheezing apixaban 5 mg tablet (Eliquis) 5 mg PO BID 08/24/23 08/25/23 History atorvastatin 40 mg tablet 40 mg PO HS 08/24/23 08/25/23 History ferrous sulfate 325 mg (65 mg 325 mg PO BIDWMEAL 08/24/23 08/25/23 History iron) tablet fluticasone fur. 200 mcg-umeclid 1 inh inhalation DAILY 08/24/23 08/25/23 History 62.5 mcg-vilant 25 mcg inhalat.powder (Trelegy Ellipta) gabapentin 800 mg tablet 800 mg PO TID 08/24/23 08/25/23 History ipratropium 0.5 mg-albuterol 3 mg 3 ml inhalation Q6H PRN Shortness 08/24/23 08/25/23 History (2.5 mg base)/3 mL nebulization Of Breath Or Wheezing soln levothyroxine 50 mcg tablet 50 mcg PO AM 08/24/23 08/25/23 History ropinirole 1 mg tablet 1 mg PO HS 08/24/23 08/25/23 History sotalol 80 mg tablet 80 mg PO BID 08/24/23 08/25/23 History acetylcysteine 600 mg capsule 600 mg PO BID 08/25/23 08/25/23 History furosemide 40 mg tablet 40 mg PO DAILY 08/25/23 08/25/23 History guaifenesin 600 mg tablet, 600 mg PO BID 08/25/23 08/25/23 History extended release 12 hr naloxone 4 mg/actuation nasal spray 4 mg intranasal Q2M PRN Opioid 08/25/23 08/25/23 History Reversal oxycodone-acetaminophen 10 mg-325 1 tab PO TID PRN Chronic Pain 08/25/23 08/25/23 History mg tablet potassium chloride 10 mEq 10 meq PO AM 08/25/23 08/25/23 History tablet,extended release sulfamethoxazole 800 1 tab PO Q12H 08/25/23 08/25/23 History mg-trimethoprim 160 mg tablet New Prescriptions to Start Prescriptions: Allergies Allergy/AdvReac Type Severity Reaction Status Date / Time Penicillins Allergy Difficulty Verified 08/25/23 07:12 Breathing Assessment and Plan *Assessment and plan (1) Current smoker: Status: Acute Category: Social Hx Code(s): F17.200 - Nicotine dependence, unspecified, uncomplicated (2) Acute hypercapnic respiratory failure: Status: Acute Category: Medical Code(s): J96.02 - Acute respiratory failure with hypercapnia (3) Pacemaker: Status: Acute Category: Medical Code(s): Z95.0 - Presence of cardiac pacemaker (4) Acute on chronic respiratory failure with hypoxemia: Status: Acute Category: Medical Code(s): J96.21 - Acute and chronic respiratory failure with hypoxia (5) Acute exacerbation of chronic obstructive pulmonary disease: Status: Acute Category: Medical Code(s): J44.1 - Chronic obstructive pulmonary disease with (acute) exacerbation (6) Pneumonia: Status: Acute Qualifiers: Laterality: bilateral Lung location: lower lobe of lung Pneumonia type: due to unspecified organism Qualified Code(s): J18.9 - Pneumonia, unspecified organism Category: Medical Code(s): J18.9 - Pneumonia, unspecified organism (7) Coronary artery disease: Status: Acute Category: Medical Code(s): I25.10 - Atherosclerotic heart disease of [place] coronary artery without angina pectoris (8) Paroxysmal atrial fibrillation: Status: Acute Category: Medical Code(s): I48.0 - Paroxysmal atrial fibrillation Plan Acute on chronic respiratory failure with hypoxemia Acute hypercapnic respiratory failure Acute exacerbation of chronic obstructive pulmonary disease Questionable pneumonia -Patient is responding to BiPAP with blood gases improving. -Chest x-ray concerning for acute pneumonitis versus edema. Will obtain CTA of chest -IV antibiotics DuoNebs per primary service -No overt signs of volume overload at this time, echocardiogram and CTA of chest are pending. Will diurese based on results. History of paroxysmal atrial fibrillation Chadsvasc score 2 post pacemaker -Device interrogated, no events recorded -Currently normal sinus rhythm rate in the 70s -Continue sotalol 80 mg p.o. twice daily -Eliquis 5 mg p.o. twice daily History of coronary artery disease -Serial troponins negative -EKG negative for acute ischemic changes -Cannot obtain details at this point due to patient's altered mental status. Attempted to call daughter and get information, she is unclear about patient's coronary artery disease history. -Continue aspirin 81 mg p.o. daily, atorvastatin 40 mg p.o. daily -Preliminary Echo shows a normal ejection fraction with mild RV dysfunction. Tissue read is pending Hypotension -Improving on Levophed drip CV summary 08/25/2023: Patient currently being weaned off of Levophed drip and improving on BiPAP. CTA of chest and echocardiogram are pending. Attempt to get medical records from [place].
--- NOTE | 2023-08-25 09:59 | PC.NURSE ---
New orders received to start pt on Levophed. Orders carried out. Levophed started at 0952 at 8 mcg/min.
[2023-08-25] MEDS: ENOXAPARIN 60MG/0.6ML SYRINGE 60 MG SQ ×2 (10:50→22:02)
[2023-08-25 11:16] LABS: Microscopic, Urine URINE MICROSCOPIC (MICROSCOPIC)
--- NOTE | 2023-08-25 11:51 | PC.NURSE ---
Pt is awake. A&O x3. Tolerating Bipap at this time. Educated on importance of wearing Bipap when sleeping and napping. Levophed is currently infusing @ 2 mcg/min. Titrated per protocol. Call light within reach. Safety measures in place.
[2023-08-25 11:56] LABS: Appearance,Urine CLEAR (Clear); Bilirubin,Urine Negative (Negative); Blood, Urine TRACE-I (Negative); Color,Urine YELLOW (Yellow); Glucose,Urine (UA) Negative (Negative); Ketones,Urine Negative (Negative); Leukocyte Esterase,Urine Negative (Negative); Nitrate,Urine Negative (Negative); PH,Urine 5.5 (5.0-8.5); Protein,Urine Negative (Negative); Specific Gravity, Urine 1.015 (1.005-1.030); Urobilinogen,Urine 0.2 EU/dl (0.2)
[2023-08-25 12:14] LABS: Bacteria,Urine Trace /lpf; RBC,Urine Occasional #/hpf (0-3); Squamous Epithelial Cell,Urine Occasional #/hpf (0-5)
[2023-08-25 12:36] LABS: NT Pro Brain Natriuretic Pep. 450 pg/mL (0-125)
[2023-08-25] MEDS: 0.9 % SODIUM CHLORIDE 50 ML VIAL 40 ML IV (14:30)
[2023-08-25] MEDS: SODIUM CHLORIDE 0.9% 10ML SYR (RAD ONLY) 10 ML IV (14:30)
[2023-08-25] MEDS: IOPAMIDOL-370 (76%);100ML BOTTLE 70 ML IV (14:30)
--- NOTE | 2023-08-25 14:49 | HMH.ITSTN ---
CALLED THE FLOOR WHEN ORDER WAS PUT IN. PATIENT WAS NOT STABLE ENOUGH TO DO SCAN WHEN ORDERED. NURSE CALLED AROUND 2:00 TO LET US KNOW HE WAS READY
--- NOTE | 2023-08-25 15:22 | SW/DCPLANNER ---
Addendum entered by Sangita Gallegos 08/27/23 12:04: Isabelle w/ [facility] stated that services will begin Thursday 08/31 for this patient. Addendum entered by Sangita Gallegos 08/26/23 13:58: Patient is not interested in placement at this time. Patient is agreeable to home health if covered under his insurance. Patient information/order will be faxed to [facility] today. Patient may discharge home this afternoon. Original Note: Patient's family expressed to nursing staff regarding placement for this patient at [facility]. I did have a discussion w/ patient and he was agreeable w/ placement at [facility] until Medicaid was discussed. Patient is not agreeable to placement under Medicaid at this time. Patient was agreeable for me to call and discuss his daughter Bety. I called and spoke w/ Bety regarding placement and Medicaid and informed her that patient is not agreeable to placement under [facility] at this time. Bety stated that she would prefer to come to hospital tomorrow and speak w/ patient and myself in room together. I will follow up w/ patient and his daughter tomorrow morning. Discharge date is unknown at this time.
--- NOTE | 2023-08-25 16:31 | PC.NURSE ---
Pt is A&O x3. Bipap is currently on at this time. Pt has worn it for 8 hrs this shift. Levophed titrated per protocol. It is currently @ 1 mcg/min. Pt voided this afternoon. 200 ml. No BM. VSS.Call light within reach.
--- NOTE | 2023-08-25 17:40 | EXP.PN ---
Subjective *Date: 08/25/23 *Time: 17:40 Interval history: seen at bedside, confused and not able to hold conversations Exam Data for Last 24 hours Vital signs and Labs for Last 24 Hours: Temp Pulse Resp BP Pulse Ox O2 Del Method O2 Flow Rate 98.2 F 110 H 21 115/72 92 L BiPAP 3 08/25/23 16:00 08/25/23 17:00 08/25/23 17:00 08/25/23 17:00 08/25/23 17:00 08/25/23 17:00 08/25/23 15:00 FiO2 30 08/25/23 17:00 Laboratory Results - last 24 hr 08/24/23 21:53: VBG pH 7.20 L, VBG pCO2 135.9 H, VBG pO2 39.8, VBG HCO3 52.0 H, VBG Total CO2 56.2 H, VBG O2 Saturation 75.8 H, VBG Base Excess 24.0 H 08/24/23 21:56: WBC 14.4 H, RBC 4.75, Hgb 14.8, Hct 45.6, MCV 95.9 H, MCH 31.1, MCHC 32.4, RDW 13.8, Plt Count 198, MPV 7.9, Neut % (Auto) 53.5, Lymph % (Auto) 40.1, [place] % (Auto) 4.6, Eos % (Auto) 1.1, Baso % (Auto) 0.7, Neut # (Auto) 7.7, Lymph # (Auto) 5.8 H, [place] # (Auto) 0.7, Eos # (Auto) 0.2, Baso # (Auto) 0.1, Sodium 138, Potassium 3.8, Chloride 82 L, Carbon Dioxide 55 H*, Anion Gap 4.8 L, BUN 7 L, Creatinine 0.50 L, Estimated Creat Clear 152, Estimated GFR 171, Est GFR ( Amer) 207, Glucose 127 H, Lactate 0.8, Calcium 8.5, Total Bilirubin 0.4, AST 25, ALT 12, Alkaline Phosphatase 110, Troponin I < 0.01, NT-Pro-B Natriuret Pep 374 H, Total Protein 6.6, Albumin 3.3 L, Globulin 3.3 H, Albumin/Globulin Ratio 1.0 L 08/24/23 22:40: VBG pH 7.32, VBG pCO2 86.0 H, VBG pO2 37.6, VBG HCO3 43.2 H, VBG Total CO2 45.9 H, VBG O2 Saturation 78.9 H, VBG Base Excess 17.1 H 08/25/23 01:15: Troponin I < 0.01 08/25/23 04:15: WBC 7.9 D, RBC 4.21 L, Hgb 13.2 L D, Hct 40.2 L, MCV 95.5 H, MCH 31.4 H, MCHC 32.9, RDW 13.9, Plt Count 153, MPV 8.2, Neut % (Auto) 87.9 H, Lymph % (Auto) 10.0, [place] % (Auto) 1.5 L, Eos % (Auto) 0.4, Baso % (Auto) 0.2, Neut # (Auto) 7.0, Lymph # (Auto) 0.8, [place] # (Auto) 0.1, Eos # (Auto) 0.0, Baso # (Auto) 0.0, Total Counted 100, Neutrophils % (Manual) 94 H, Lymphocytes % (Manual) 6 L, Platelet Estimate Normal, RBC Morphology Not Reportable, Stomatocytes 1+, Sodium 137, Potassium 3.6, Chloride 83 L, Carbon Dioxide 54 H*, Anion Gap 17.6 H, BUN 6 L, Creatinine 0.50 L, Estimated Creat Clear 139, Estimated GFR 171, Est GFR ( Amer) 207, Glucose 173 H D, Calcium 7.9 L, Magnesium 2.0, Total Bilirubin 0.2, AST 20, ALT 10 L, Alkaline Phosphatase 97, Troponin I < 0.01, NT-Pro-B Natriuret Pep 450 H, Total Protein 5.6 L, Albumin 2.8 L D, Globulin 2.8, Albumin/Globulin Ratio 1.0 L 08/25/23 06:00: Specimen Source R radial, O2 % 5lpm, ABG pH 7.20 L*, ABG pCO2 146.5 H, ABG pO2 106.0 H, ABG HCO3 55.5 H, ABG Total CO2 60.0 H, ABG O2 Saturation 98, ABG Base Excess 27.4 H, Curtis Test Acceptable 08/25/23 06:49: Urine Color Yellow, Urine Appearance Clear, Urine pH 5.5, Ur Specific [place] 1.015, Urine Protein Negative, Urine Glucose (UA) Negative, Urine Ketones Negative, Urine Blood Trace-i, Urine Nitrate Negative, Urine Bilirubin Negative, Urine Urobilinogen 0.2, Ur Leukocyte Esterase Negative, Urine RBC Occasional, Urine WBC None, Ur Squamous Epith Cells Occasional, Urine Bacteria Trace 08/25/23 09:19: Specimen Source L radial, O2 % 30, ABG pH 7.39, ABG pCO2 83.1 H, ABG pO2 50.5 L, ABG HCO3 49.3 H, ABG Total CO2 51.8 H, ABG O2 Saturation 89 L, ABG Base Excess 24.3 H, Curtis Test Acceptable, Vent Rate 20, Tidal Volume 18/6 I & O for Last 24 hours: Intake & Output 08/22/23 08/23/23 08/24/23 08/25/23 23:59 23:59 23:59 23:59 Intake Total 2449 / 2449 Output Total 1315 / 1315 Balance 1134 / 1134 Weight 65.771 kg 60.282 kg Constitutional Constitutional: no acute distress *Routine HEENT Exam Head: Present normocephalic Eye: Present EOMI and PERRL ENT: Present mucous membranes moist *Routine Neck Exam Neck: Present supple; Absent lymphadenopathy *Routine Respiratory Exam Respiratory: Present distant breath sounds and diminished air movement *Routine Cardiovascular Exam Cardiovascular: Present RRR *Routine Abdominal Exam Abdominal: Present soft and normoactive bowel sounds; Absent tenderness *Routine Extremities Exam Extremities: Absent cyanosis, clubbing or edema *Routine Skin Exam Skin: Present warm; Absent rash *Routine Neurological Exam Neurological: Present alert Comments: [id number] Assessment and Plan *Assessment and plan (1) Acute hypercapnic respiratory failure: Status: Acute Category: Medical Code(s): J96.02 - Acute respiratory failure with hypercapnia (2) Pneumonia: Status: Acute Qualifiers: Laterality: bilateral Lung location: lower lobe of lung Pneumonia type: due to unspecified organism Qualified Code(s): J18.9 - Pneumonia, unspecified organism Category: Medical Code(s): J18.9 - Pneumonia, unspecified organism (3) Acute exacerbation of chronic obstructive pulmonary disease: Status: Acute Category: Medical Code(s): J44.1 - Chronic obstructive pulmonary disease with (acute) exacerbation (4) Pacemaker: Status: Acute Category: Medical Code(s): Z95.0 - Presence of cardiac pacemaker (5) Degenerative joint disease (DJD) of lumbar spine: Status: Chronic Qualifiers: Spinal osteoarthritis complication: with radiculopathy Qualified Code(s): M47.26 - Other spondylosis with radiculopathy, lumbar region Category: Medical Code(s): M47.816 - Spondylosis without myelopathy or radiculopathy, lumbar region (6) Current smoker: Status: Acute Category: Social Hx Code(s): F17.200 - Nicotine dependence, unspecified, uncomplicated Plan 58-year-old male PMHx of COPD on 3 to 4 L nasal cannula home, current smoker, hypertension, hyperlipidemia,, CHF, AICD placement currently on Eliquis twice daily, hypothyroidism, chronic neck and back pain brought in by EMS for evaluation of shortness of breath.on Arrival patient was found hypoxic. Labs showed severe hypercapnia with mild leukocytocis. patient was placed on BIPAP. CXR was obtained theres is questionable bibasilar opacities. findings discussed with ER provider. Agreed for admission. Plan as follow: -Acute hypercapnic respiratory failure, bilateral bibasilar pneumonia: Exacerbation of COPD: Continue BIPAP, monitor ABG, PCO2 trending down Pulmonology consult. Started on Levaquin IV empirically, will switch to vanc and cefepime Solu-Medrol IV given in the ER DuoNeb every 6h for wheezing of shortness of breath Resume home regimen. Patient on Trelegy Ellipta suspect Cardiogenic shock? Low BP, started on Levophed Cardiology consulted monitor on telemetry -History of CHF Pacemaker in situ BNP is slightly elevated. 1 dose Lasix given Sotalol 80 mg twice daily Monitor heart rate and rhythm CMP daily May defer cardiology consult -Degenerative joint disease of the lumbar spine, chronic lumbar pain: Patient on oxycodone at home Resumed. Current smoker Education provided. Smoking cessation. On nicotine patch On Eliquis. Low concern for DVT. Protonix for GI bleed protection Full code
--- NOTE | 2023-08-25 19:30 | PC.NURSE ---
Levophed placed on standby at 1700 and currently remains on standby.
[2023-08-25] MEDS: PANTOPRAZOLE 40MG VIAL 40 MG IV (21:24)
[2023-08-25] MEDS: LEVOFLOXACIN/D5W 750 MG/150 ML 750 MG/150 ML PIGGYBACK 100 MG IV (21:26)
[2023-08-25] MEDS: ROPINIROLE 1MG TABLET 1 MG PO (21:29)
[2023-08-25] MEDS: SOTALOL 80MG TABLET 80 MG PO (21:29)
[2023-08-25] MEDS: FERROUS SULFATE 325MG TABLET 325 MG PO (21:30)
[2023-08-25] MEDS: ATORVASTATIN 40MG TABLET 40 MG PO (21:30)
[2023-08-25] MEDS: GABAPENTIN 800MG TABLET 800 MG PO (21:30)
[2023-08-26] VITALS (28 sets, daily range): BP systolic 82–157; BP diastolic 37–77; PULSE 59–96; RESP 15–27; TEMP 36.5–37.3; O2SAT 87–99; BMI 19.5
[2023-08-26] MEDS: IPRATROPIUM/ALBUTEROL 3 ML NEB IH ×5 (00:25→23:53)
[2023-08-26] MEDS: 0.9 % SODIUM CHLORIDE 1000ML 1,000 ML 50 ML IV ×2 (04:56→13:22)
--- NOTE | 2023-08-26 05:04 | PC.NURSE ---
Patient encouraged to remain on bipap overnight, he tolerated this well for the most part. Able to be off bipap and on 3L NC for sips of drinks and for pills. Patient with pacemaker. BP remained stable off of Levophed overnight. Low UOP, encouraged to use urinal multiple times. No complaints of pain or SOB this shift. Was able to sleep for a couple of hours but remained awake for most of this shift.
--- NOTE | 2023-08-26 05:55 | PC.NURSE ---
bladder scanned and straight cathed. 310 cc yellow clear urine returned.
--- NOTE | 2023-08-26 05:57 | PC.NURSE ---
Pt expressing concern about being transferred to [place] where his closing manager is.
[2023-08-26] MEDS: FLUTICASONE/UMECLIDIN/VILANTER 200/62.5/25MCG INHALER 1 PUFF IH (06:15)
[2023-08-26] MEDS: LEVOTHYROXINE 50MCG (0.05MG) TAB 50 MCG PO (06:32)
[2023-08-26] MEDS: OXYCODONE 10MG W/APAP 325MG TABLET 1 EACH PO ×4 (06:38→20:34)
[2023-08-26] MEDS: FERROUS SULFATE 325MG TABLET 325 MG PO ×2 (08:14→20:26)
[2023-08-26] MEDS: GABAPENTIN 800MG TABLET 800 MG PO ×3 (08:14→20:26)
[2023-08-26] MEDS: SODIUM CHLORIDE 3% 15ML NEB 3 ML IH (09:05)
--- NOTE | 2023-08-26 09:22 | P.PN_ITS ---
Subjective Subjective Date: 08/26/23 Time: 09:00 Principal diagnosis: COPD exacerbation Interval history: Doing well this morning. Patient sitting up in chair on 3 L nasal cannula with oxygen sats greater than 95%. Morning labs reviewed and stable blood gases continue to improve. Exam Data for Last 24 hours Vital signs and Labs for Last 24 Hours: Temp Pulse Resp BP Pulse Ox O2 Del Method O2 Flow Rate 98.4 F 78 27 H 93/58 L 94 L Nasal Cannula 3 08/26/23 08:00 08/26/23 08:00 08/26/23 08:00 08/26/23 08:00 08/26/23 08:00 08/26/23 08:00 08/26/23 08:00 FiO2 30 08/26/23 06:41 Laboratory Results - last 24 hr 08/25/23 04:15: NT-Pro-B Natriuret Pep 450 H 08/25/23 06:49: Urine Color Yellow, Urine Appearance Clear, Urine pH 5.5, Ur Specific [place] 1.015, Urine Protein Negative, Urine Glucose (UA) Negative, Urine Ketones Negative, Urine Blood Trace-i, Urine Nitrate Negative, Urine Bilirubin Negative, Urine Urobilinogen 0.2, Ur Leukocyte Esterase Negative, Urine RBC Occasional, Urine WBC None, Ur Squamous Epith Cells Occasional, Urine Bacteria Trace 08/25/23 09:19: Specimen Source L radial, O2 % 30, ABG pH 7.39, ABG pCO2 83.1 H, ABG pO2 50.5 L, ABG HCO3 49.3 H, ABG Total CO2 51.8 H, ABG O2 Saturation 89 L, ABG Base Excess 24.3 H, Curtis Test Acceptable, Vent Rate 20, Tidal Volume 18/6 I & O for Last 24 hours: Intake & Output 08/23/23 08/24/23 08/25/23 08/26/23 23:59 23:59 23:59 23:59 Intake Total 2660 / 2660 1093.849 / 1093.849 Output Total 1415 / 1415 310 / 310 Balance 1245 / 1245 783.849 / 783.849 Weight 145 lb 132 lb 14.4 oz 136 lb 3 oz Constitutional Constitutional: no acute distress *Routine Respiratory Exam Respiratory: Present rhonchi and symmetric chest movement *Routine Cardiovascular Exam Cardiovascular: Present RRR, Normal S1 and Normal S2 *Routine Abdominal Exam Abdominal: Present soft and normoactive bowel sounds; Absent tenderness *Routine Extremities Exam Extremities: Present full ROM and normal capillary refill; Absent edema *Routine Skin Exam Skin: Present intact, dry and warm Detailed Neck Exam: Thyroids Thyroid: Absent bruit Progress Note: A&P Assessment and plan (1) Acute hypercapnic respiratory failure: Status: Acute (2) Pneumonia: Status: Acute (3) Acute exacerbation of chronic obstructive pulmonary disease: Status: Acute (4) Pacemaker: Status: Acute (5) Degenerative joint disease (DJD) of lumbar spine: Status: Chronic (6) Current smoker: Status: Acute Assessment and Plan Assessment and Plan for All Diagnoses:: Acute on chronic respiratory failure with hypoxemia Acute hypercapnic respiratory failure Acute exacerbation of chronic obstructive pulmonary disease Questionable pneumonia -Patient is responding to BiPAP with blood gases improving. -Chest x-ray concerning for acute pneumonitis versus edema. -IV antibiotics DuoNebs per primary service -CTA chest: No evidence of pulmonary embolism, multiple small noncalcified nodules, nonspecific gallbladder wall thickening. History of paroxysmal atrial fibrillation Chadsvasc score 2 post pacemaker -Device interrogated, no events recorded -Currently normal sinus rhythm rate in the 70s -Continue sotalol 80 mg p.o. twice daily -Eliquis 5 mg p.o. twice daily History of coronary artery disease -Serial troponins negative -EKG negative for acute ischemic changes -Cannot obtain details at this point due to patient's altered mental status. Attempted to call daughter and get information, she is unclear about patient's coronary artery disease history. -Continue aspirin 81 mg p.o. daily, atorvastatin 40 mg p.o. daily -Echo shows a normal ejection fraction, mild RV dilation and mild dysfunction, mild TR, elevated RVSP 40-45 Hypotension -Patient was stable off of Levophed drip for most of the evening. Nurse reports patient's blood pressure dropped into the 70s this morning and is back on Levophed drip. CV summary 08/25/2023: Patient currently being weaned off of Levophed drip and improving on BiPAP.
--- NOTE | 2023-08-26 09:56 | HMH.PTEV ---
Physical Therapy Evaluation Rehab PT IP Evaluation Start: 08/25/23 15:27 Freq: ONCE Status: Active Protocol: Document 08/26/23 09:51 NORMA (Rec: 08/26/23 09:56 SPENCERMELODIE [id number]) Subjective/History History History 58 yowm adm to [facility] with COPD exac. He has PMH of COPD, HTN, HLD, CHF, AICD, DDD. He reports he lives with his daughter, [address] [place] the home, and he is generally independent with all mobility using a RW at baseline. Subjective Subjective I really want to go to [place] or home. He has no c /o at this time except baseline SOA with exertion. New diagnosis of cancer in past 12 No months? Rehab PT IP Eval Objective Appearance Patient Behavior Appropriate Patient Orientation Person,Place,Time Difficulty following instructions none Speech Pattern Clear Ambulation Patient Able to Ambulate Yes Ambulation Observation IP General Gait Pattern Observation Wide Based Gait,Shuffling Step Ambulation Distance (feet) 5 Ambulation Assistive Device Rolling Walker Ambulation Ability Contact Guard/Hand Hold Balance Ability to Arise Able, uses arms to help Sitting Balance Steady, safe Standing Balance Steady, wide stance Dynamic Sitting Balance Ability Good Dynamic Standing Balance Ability Good Transfers Bed Transfer Ability Contact Guard/Hand Hold Chair Transfer Ability Contact Guard/Hand Hold Sit to Stand Bed Transfer Ability Contact Guard/Hand Hold Sit to Stand Chair Transfer Ability Contact Guard/Hand Hold Rehab PT IP prob,goals,plan Problems Date of Evaluation: 08/26/23 PT IP Problems Bed Mobility,Transfers,Gait Rehab Potential Rehab Potential Good Plan PT Intervention Plan Bed Mobility,Transfers,Gait, Therapeutic Exercise PT Plan Frequency Daily Duration LOS Discharge Goals Bed Transfer Ability Supervision/Stand by Sit to Stand Chair Transfer Ability Supervision/Stand by Ambulation Assistive Device Rolling Walker Ambulation Distance (feet) 20 Discharge Plan PT Discharge Plan Pt is currently appropriate to return home once medically stable for d/c if he has expected family assist available. Skilled intervention is needed to prevent further debility, falls, injury, or wounds. Eval Complexity Eval Charge Codes 68579 - High Complexity PHYSICIAN CERTIFICATION: I certify the specified therapy services for Jonathan Matt are required, authorized, and reviewed every 30 days.
[2023-08-26 10:05] LABS: Basophils % 0.2 % (0.1-2.0); Eosinophils # 0.1 K/mm3 (0.0-0.4); Eosinophils % 0.5 % (0.1-12.0); Hematocrit 35.3 % (42.0-52.0); Hemoglobin 11.7 g/dL (14.1-18.0); Lymphocytes # 2.8 K/mm3 (0.7-4.5); Lymphocytes % 21.1 % (10-50); Mean Corpuscular HGB Conc 33.1 g/dL (31.8-35.4); Mean Corpuscular Hemoglobin 30.6 pg (27.0-31.2); Mean Corpuscular Volume 92.4 fl (80-94); Mean Platelet Volume 8.8 fl (7.4-10.4); Monocytes # 0.8 K/mm3 (0.1-1.0); Monocytes % 5.9 % (1.7-9.3); Neutrophils # 9.5 K/mm3 (1.8-7.8); Neutrophils % 72.3 % (37.0-80.0); Platelet Count 225 K/mm3 (142-424); Red Blood Count 3.82 M/mm3 (4.60-6.20); Red Cell Distribution Width 14.2 % (11.5-17.5); White Blood Count 13.1 K/mm3 (4.8-10.8)
--- NOTE | 2023-08-26 10:05 | HMH.OTEV ---
OT Inpatient Evaluation Rehab OT IP Evaluation Start: 08/25/23 15:27 Freq: ONCE Status: Active Protocol: Document 08/26/23 09:53 LORI (Rec: 08/26/23 10:05 LORI [id number]) Rehab OT IP Assessment Subjective History This is a 58-year-old male PMHx of COPD on 3 to 4 L nasal cannula home, current smoker, hypertension, hyperlipidemia, , CHF, AICD placement currently on Eliquis twice daily, hypothyroidism, chronic neck and back pain brought in by EMS for evaluation of shortness of breath. Per ER documentation EMS stated that they received a call that patient was down and unconscious. They arrived, saturating 53% on room air and cyanotic, largely unresponsive. Blood glucose was around 120. Use bag-valve -mask on patient, give DuoNebs , patient became more responsive after the on the way. Patient has no complaints on arrival. Patient stated he was feeling bad and asked daugther to call for help, but he denied loss of consciousness. Admitted for further treatment and management. Patient lives in [address] [place] with daugther. INdependent with ADLs and fx'l mobility prior to hospitalization. Subjective I can get up. Instructed Patient on proper hand and foot placement to complete bed mobiltiy from supine->sit @ EoB->SPT to recliner requiring Min A. Left Patient sitting up in recliner with needs met at end of session. Objective Patient Orientation Person,Place,Name,Age,Year Right Upper Extremity Gross ROM WFL Left Upper Extremity Gross ROM WFL Bed Mobility bed mobility - supine/sit Assist Level Contact Guard/Hand Hold Transfer Training Sit/Stand/Pivot Transfer Assist Level Minimal x 1 (25% assist) Chair Transfer Ability Minimal x 1 (25% assist) Chair Transfer Technique Sit to/from Ambulatory Chair Transfer Assistive Devices None Rehab OT IP prob,goals,plan Problems Date of Evaluation: 08/26/23 OT IP Problems Bed Mobility,Transfers,Balance ,Self care,Safety Rehab Potential Rehab Potential Good Equipment Needs Assistive Devices None / NA Plan OT intervention Plan Bed Mobility,Transfers,Balance ,Self care,Safety,Therapeutic Exercise OT Plan Frequency Daily Duration LOS Discharge Goals Bed Mobility Ability Standby Assistance Sit to Stand Chair Transfer Ability Supervision/Stand by Chair Transfer Ability Contact Guard/Hand Hold Chair Transfer Technique Sit to/from Ambulatory Discharge Plan OT Discharge Plan Patient has requested to be d/ c to [facility]. Patient would benefit from rehabilitation til medically cleared. Patient to continue from skilled OT services while admitted here at [facility]. Eval Complexity Eval Charge Codes 93701 - Low Complexity PHYSICIAN CERTIFICATION: I certify the specified therapy services for Jonathan Matt are required, authorized, and reviewed every 30 days.
[2023-08-26 10:10] LABS: Blood Urea Nitrogen 11 mg/dl (9-20); Calcium 7.7 mg/dl (8.4-10.2); Chloride 84 mmol/L (98-107); Creatinine Clearance Estimated 79 mL/min (50-200); Estimated Glomerular Filt Rate 87 ml/min (>60); GFR (African American) 105 ML/MIN (>60); Glucose 137 mg/dl (74-100); Potassium 3.2 mmoL/L (3.5-5.1); Sodium 133 mmol/L (136-145)
[2023-08-26] MEDS: POTASSIUM CHLORIDE 10MEQ TABLET.ER 10 MEQ PO (10:17)
[2023-08-26] MEDS: guaiFENesin 600 MG TAB.ER.12H PO ×2 (10:17→20:26)
[2023-08-26] MEDS: NOREPINEPHRINE IV (10:18)
[2023-08-26] MEDS: WATER IV (10:18)
[2023-08-26] MEDS: DEXTROSE 5% IV (10:18)
[2023-08-26 10:29] LABS: Anion Gap 4.2 mEq/L (5-15); Carbon Dioxide 48 mmol/L (22.0-30.0)
[2023-08-26] MEDS: LACTATED RINGERS 1000ML 1,000 ML 999 ML IV (10:59)
[2023-08-26] MEDS: FUROSEMIDE 40 MG TABLET PO (10:59)
[2023-08-26] MEDS: MIDODRINE HCL 5 MG TABLET PO ×2 (10:59→20:26)
--- NOTE | 2023-08-26 17:33 | EXP.PN ---
Subjective *Date: 08/26/23 *Time: 17:33 Interval history: seen at bedside, confused and not able to hold conversations Exam Data for Last 24 hours Vital signs and Labs for Last 24 Hours: Temp Pulse Resp BP Pulse Ox O2 Del Method O2 Flow Rate 97.8 F 70 16 97/54 L 97 Nasal Cannula 2 08/26/23 12:00 08/26/23 14:00 08/26/23 14:00 08/26/23 14:00 08/26/23 15:58 08/26/23 15:58 08/26/23 15:58 FiO2 30 08/26/23 06:41 Laboratory Results - last 24 hr 08/26/23 09:50: WBC 13.1 H D, RBC 3.82 L, Hgb 11.7 L, Hct 35.3 L, MCV 92.4, MCH 30.6, MCHC 33.1, RDW 14.2, Plt Count 225 D, MPV 8.8, Neut % (Auto) 72.3, Lymph % (Auto) 21.1, [place] % (Auto) 5.9, Eos % (Auto) 0.5, Baso % (Auto) 0.2, Neut # (Auto) 9.5 H, Lymph # (Auto) 2.8, [place] # (Auto) 0.8, Eos # (Auto) 0.1, Baso # (Auto) 0.0, Sodium 133 L, Potassium 3.2 L, Chloride 84 L, Carbon Dioxide 48 H*, Anion Gap 4.2 L, BUN 11 D, Creatinine 0.90 D, Estimated Creat Clear 79, Estimated GFR 87, Est GFR ( Amer) 105 D, Glucose 137 H, Calcium 7.7 L I & O for Last 24 hours: Intake & Output 08/23/23 08/24/23 08/25/23 08/26/23 23:59 23:59 23:59 23:59 Intake Total 2660 / 2660 2185.020 / 2185.020 Output Total 1415 / 1415 1510 / 1510 Balance 1245 / 1245 675.020 / 675.020 Weight 65.771 kg 60.282 kg 61.774 kg Constitutional Constitutional: no acute distress *Routine HEENT Exam Head: Present normocephalic Eye: Present EOMI and PERRL ENT: Present mucous membranes moist *Routine Neck Exam Neck: Present supple; Absent lymphadenopathy *Routine Respiratory Exam Respiratory: Present CTA bilaterally *Routine Cardiovascular Exam Cardiovascular: Present RRR *Routine Abdominal Exam Abdominal: Present soft and normoactive bowel sounds; Absent tenderness *Routine Extremities Exam Extremities: Absent cyanosis, clubbing or edema *Routine Skin Exam Skin: Present warm; Absent rash *Routine Neurological Exam Neurological: Present alert and oriented X3 Assessment and Plan *Assessment and plan (1) Acute hypercapnic respiratory failure: Status: Acute Category: Medical Code(s): J96.02 - Acute respiratory failure with hypercapnia (2) Pneumonia: Status: Acute Qualifiers: Laterality: bilateral Lung location: lower lobe of lung Pneumonia type: due to unspecified organism Qualified Code(s): J18.9 - Pneumonia, unspecified organism Category: Medical Code(s): J18.9 - Pneumonia, unspecified organism (3) Acute exacerbation of chronic obstructive pulmonary disease: Status: Acute Category: Medical Code(s): J44.1 - Chronic obstructive pulmonary disease with (acute) exacerbation (4) Pacemaker: Status: Acute Category: Medical Code(s): Z95.0 - Presence of cardiac pacemaker (5) Degenerative joint disease (DJD) of lumbar spine: Status: Chronic Qualifiers: Spinal osteoarthritis complication: with radiculopathy Qualified Code(s): M47.26 - Other spondylosis with radiculopathy, lumbar region Category: Medical Code(s): M47.816 - Spondylosis without myelopathy or radiculopathy, lumbar region (6) Current smoker: Status: Acute Category: Social Hx Code(s): F17.200 - Nicotine dependence, unspecified, uncomplicated Plan 58-year-old male PMHx of COPD on 3 to 4 L nasal cannula home, current smoker, hypertension, hyperlipidemia,, CHF, AICD placement currently on Eliquis twice daily, hypothyroidism, chronic neck and back pain brought in by EMS for evaluation of shortness of breath.on Arrival patient was found hypoxic. Labs showed severe hypercapnia with mild leukocytocis. patient was placed on BIPAP. CXR was obtained theres is questionable bibasilar opacities. findings discussed with ER provider. Agreed for admission. Plan as follow: -Acute hypercapnic respiratory failure, bilateral bibasilar pneumonia: Exacerbation of COPD: Continue BIPAP, monitor ABG, PCO2 trending down Pulmonology consult. Started on Levaquin IV empirically, will switch to vanc and cefepime Solu-Medrol IV given in the ER DuoNeb every 6h for wheezing of shortness of breath Resume home regimen. Patient on Trelegy Ellipta suspect Cardiogenic shock? Low BP, started on Levophed, wean as tolerated started on midodrine and IV bolus, IV fluids Cardiology consulted monitor on telemetry -History of CHF Pacemaker in situ BNP is slightly elevated. 1 dose Lasix given Sotalol 80 mg twice daily Monitor heart rate and rhythm CMP daily May defer cardiology consult -Degenerative joint disease of the lumbar spine, chronic lumbar pain: Patient on oxycodone at home Resumed. Current smoker Education provided. Smoking cessation. On nicotine patch On Eliquis. Low concern for DVT. Protonix for GI bleed protection Full code
[2023-08-26] MEDS: LEVOFLOXACIN/D5W 750 MG/150 ML 750 MG/150 ML PIGGYBACK 100 MG IV (20:23)
[2023-08-26] MEDS: SOTALOL 80MG TABLET 80 MG PO (20:26)
[2023-08-26] MEDS: ROPINIROLE 1MG TABLET 1 MG PO (20:26)
[2023-08-26] MEDS: APIXABAN 5MG TABLET 5 MG PO (20:26)
[2023-08-26] MEDS: ATORVASTATIN 40MG TABLET 40 MG PO (20:26)
[2023-08-26] MEDS: PANTOPRAZOLE 40MG VIAL 40 MG IV (21:18)
[2023-08-27] VITALS (17 sets, daily range): BP systolic 89–119; BP diastolic 41–64; PULSE 60–80; RESP 16–71; TEMP 36.7–36.9; O2SAT 90–97; BMI 22.2
[2023-08-27] MEDS: OXYCODONE 10MG W/APAP 325MG TABLET 1 EACH PO ×4 (03:22→22:27)
--- NOTE | 2023-08-27 03:31 | PC.NURSE ---
Had to restart pts levophed. currently at 1 mcg. Pts current pressure is 87/56 (66) after starting Levophed
[2023-08-27] MEDS: LEVOTHYROXINE 50MCG (0.05MG) TAB 50 MCG PO (06:04)
[2023-08-27] MEDS: FLUTICASONE/UMECLIDIN/VILANTER 200/62.5/25MCG INHALER 1 PUFF IH (06:27)
[2023-08-27] MEDS: IPRATROPIUM/ALBUTEROL 3 ML NEB IH ×3 (06:27→17:35)
[2023-08-27] MEDS: APIXABAN 5MG TABLET 5 MG PO ×2 (09:00→20:48)
[2023-08-27] MEDS: POTASSIUM CHLORIDE 10MEQ TABLET.ER 10 MEQ PO (09:00)
[2023-08-27] MEDS: GABAPENTIN 800MG TABLET 800 MG PO ×3 (09:01→20:48)
[2023-08-27] MEDS: guaiFENesin 600 MG TAB.ER.12H PO ×2 (09:01→20:49)
[2023-08-27] MEDS: MIDODRINE HCL 5 MG TABLET PO ×2 (09:01→20:49)
[2023-08-27] MEDS: FERROUS SULFATE 325MG TABLET 325 MG PO ×2 (09:01→20:49)
[2023-08-27] MEDS: SOTALOL 80MG TABLET 80 MG PO ×2 (10:11→20:49)
--- NOTE | 2023-08-27 10:37 | P.PN_ITS ---
Subjective Subjective Date: 08/27/23 Time: 08:00 Principal diagnosis: COPD exacerbation Interval history: Patient remained stable. Blood pressure remains on the lower side but patient reports this is his baseline. Denies dizziness. Morning labs reviewed. Exam Data for Last 24 hours Vital signs and Labs for Last 24 Hours: Temp Pulse Resp BP Pulse Ox O2 Del Method O2 Flow Rate 98.1 F 62 18 104/51 L 92 L Nasal Cannula 3 08/27/23 08:25 08/27/23 10:00 08/27/23 10:00 08/27/23 10:00 08/27/23 10:00 08/27/23 10:00 08/27/23 10:00 FiO2 30 08/27/23 02:04 I & O for Last 24 hours: Intake & Output 08/24/23 08/25/23 08/26/23 08/27/23 23:59 23:59 23:59 23:59 Intake Total 2660 / 2660 4866.020 / 4866.020 3626.917 / 3626.917 Output Total 1415 / 1415 2035 / 2035 0 / 0 Balance 1245 / 1245 2831.020 / 2831.020 3626.917 / 3626.917 Weight 145 lb 132 lb 14.4 oz 136 lb 3 oz 141 lb 15.643 oz Constitutional Constitutional: no acute distress *Routine HEENT Exam Head: Present normocephalic Eye: Present EOMI and PERRL ENT: Present mucous membranes moist *Routine Neck Exam Neck: Present supple; Absent lymphadenopathy *Routine Respiratory Exam Respiratory: Present CTA bilaterally *Routine Cardiovascular Exam Cardiovascular: Present RRR *Routine Abdominal Exam Abdominal: Present soft and normoactive bowel sounds; Absent tenderness *Routine Extremities Exam Extremities: Absent cyanosis, clubbing or edema *Routine Skin Exam Skin: Present warm; Absent rash *Routine Neurological Exam Neurological: Present alert and oriented X3 Progress Note: A&P Assessment and plan (1) Acute hypercapnic respiratory failure: Status: Acute (2) Pneumonia: Status: Acute (3) Acute exacerbation of chronic obstructive pulmonary disease: Status: Acute (4) Pacemaker: Status: Acute (5) Degenerative joint disease (DJD) of lumbar spine: Status: Chronic (6) Current smoker: Status: Acute Assessment and Plan Assessment and Plan for All Diagnoses:: Acute on chronic respiratory failure with hypoxemia Acute hypercapnic respiratory failure Acute exacerbation of chronic obstructive pulmonary disease Questionable pneumonia -Patient is responding to BiPAP with blood gases improving. -Chest x-ray concerning for acute pneumonitis versus edema. -IV antibiotics DuoNebs per primary service -CTA chest: No evidence of pulmonary embolism, multiple small noncalcified nodules, nonspecific gallbladder wall thickening. 08/27/2023: Patient saturation greater than 92 on 3 L. Patient baseline requires 2 to 3 L at home. History of paroxysmal atrial fibrillation Chadsvasc score 2 post pacemaker -Device interrogated, no events recorded -Currently normal sinus rhythm rate in the 70s -Continue sotalol 80 mg p.o. twice daily -Eliquis 5 mg p.o. twice daily 08/27/2023 :patient currently in normal sinus rhythm History of coronary artery disease -Serial troponins negative -EKG negative for acute ischemic changes -Cannot obtain details at this point due to patient's altered mental status. Attempted to call daughter and get information, she is unclear about patient's coronary artery disease history. -Continue aspirin 81 mg p.o. daily, atorvastatin 40 mg p.o. daily -Echo shows a normal ejection fraction, mild RV dilation and mild dysfunction, mild TR, elevated RVSP 40-45 Hypotension -Patient systolic blood pressure remains low 100s high 90s. Patient reports this is his baseline. Denies dizziness. Advised to hold Lasix 40 mg daily. We are hesitant to stop sotalol given patient is currently in normal sinus rhythm and asymptomatic with hypotension. CV summary 08/27/2023: Patient is CV stable at this time. 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 Please continue medications as listed above and can use Levophed drip as needed for hypotension.
--- NOTE | 2023-08-27 13:12 | P.EN_ITS ---
called [facility] [place], [place] for patient transfer as per patient request, they do not have beds open and they would call when they can accept patients, left Number with their transfer center
--- NOTE | 2023-08-27 13:59 | EXP.PN ---
Subjective *Date: 08/27/23 *Time: 13:59 Interval history: seen at bedside, confused and not able to hold conversations Exam Data for Last 24 hours Vital signs and Labs for Last 24 Hours: Temp Pulse Resp BP Pulse Ox O2 Del Method O2 Flow Rate 98.1 F 70 18 96/51 L 92 L Nasal Cannula 3 08/27/23 12:00 08/27/23 13:00 08/27/23 13:00 08/27/23 13:00 08/27/23 13:00 08/27/23 13:00 08/27/23 13:00 FiO2 30 08/27/23 02:04 I & O for Last 24 hours: Intake & Output 08/24/23 08/25/23 08/26/23 08/27/23 23:59 23:59 23:59 23:59 Intake Total 2660 / 2660 4866.020 / 4866.020 3641.558 / 3641.558 Output Total 1415 / 1415 2035 / 2035 700 / 700 Balance 1245 / 1245 2831.020 / 2831.020 2941.558 / 2941.558 Weight 65.771 kg 60.282 kg 61.774 kg 64.4 kg Constitutional Constitutional: no acute distress *Routine HEENT Exam Head: Present normocephalic Eye: Present EOMI and PERRL ENT: Present mucous membranes moist *Routine Neck Exam Neck: Present supple; Absent lymphadenopathy *Routine Respiratory Exam Respiratory: Present CTA bilaterally *Routine Cardiovascular Exam Cardiovascular: Present RRR *Routine Abdominal Exam Abdominal: Present soft and normoactive bowel sounds; Absent tenderness *Routine Extremities Exam Extremities: Absent cyanosis, clubbing or edema *Routine Skin Exam Skin: Present warm; Absent rash *Routine Neurological Exam Neurological: Present alert and oriented X3 Assessment and Plan *Assessment and plan (1) Acute hypercapnic respiratory failure: Status: Acute Category: Medical Code(s): J96.02 - Acute respiratory failure with hypercapnia (2) Pneumonia: Status: Acute Qualifiers: Laterality: bilateral Lung location: lower lobe of lung Pneumonia type: due to unspecified organism Qualified Code(s): J18.9 - Pneumonia, unspecified organism Category: Medical Code(s): J18.9 - Pneumonia, unspecified organism (3) Acute exacerbation of chronic obstructive pulmonary disease: Status: Acute Category: Medical Code(s): J44.1 - Chronic obstructive pulmonary disease with (acute) exacerbation (4) Pacemaker: Status: Acute Category: Medical Code(s): Z95.0 - Presence of cardiac pacemaker (5) Degenerative joint disease (DJD) of lumbar spine: Status: Chronic Qualifiers: Spinal osteoarthritis complication: with radiculopathy Qualified Code(s): M47.26 - Other spondylosis with radiculopathy, lumbar region Category: Medical Code(s): M47.816 - Spondylosis without myelopathy or radiculopathy, lumbar region (6) Current smoker: Status: Acute Category: Social Hx Code(s): F17.200 - Nicotine dependence, unspecified, uncomplicated Plan 58-year-old male PMHx of COPD on 3 to 4 L nasal cannula home, current smoker, hypertension, hyperlipidemia,, CHF, AICD placement currently on Eliquis twice daily, hypothyroidism, chronic neck and back pain brought in by EMS for evaluation of shortness of breath.on Arrival patient was found hypoxic. Labs showed severe hypercapnia with mild leukocytocis. patient was placed on BIPAP. CXR was obtained theres is questionable bibasilar opacities. findings discussed with ER provider. Agreed for admission. Plan as follow: -Acute hypercapnic respiratory failure, bilateral bibasilar pneumonia: Exacerbation of COPD: Continue BIPAP, monitor ABG, PCO2 trending down Pulmonology consult. Started on Levaquin IV empirically, will switch to vanc and cefepime Solu-Medrol IV given in the ER DuoNeb every 6h for wheezing of shortness of breath Resume home regimen. Patient on Trelegy Ellipta suspect Cardiogenic shock? Low BP, started on Levophed, wean as tolerated started on midodrine Cardiology consulted monitor on telemetry -History of CHF Pacemaker in situ BNP is slightly elevated. 1 dose Lasix given Sotalol 80 mg twice daily Monitor heart rate and rhythm CMP daily May defer cardiology consult -Degenerative joint disease of the lumbar spine, chronic lumbar pain: Patient on oxycodone at home Resumed. Current smoker Education provided. Smoking cessation. On nicotine patch On Eliquis. Low concern for DVT. Protonix for GI bleed protection, plan for transfer to [facility] per patient request, awaiting bed placement Full code
--- NOTE | 2023-08-27 15:13 | PC.NURSE ---
PT IS RESTING IN BED. LEVOPHED DRIP HAS BEEN OFF SINCE 1200. PT BP AT THIS TIME IS 112/68. PT HAS BEEN AGITATED ON AND OFF T/O THE SHIFT. PT STATES HE WANTS TO BE TRANSFERRED TO [facility] THAT WAS WHERE ALL OF HIS PHYSICIANS ARE INCLUDING HIS TUBE DISPATCHER. PT STATED HE HAS NOT BEEN TAKING SOTALOL AT HOME. CHECKED WITH PHARMACY AND VERIFIED PT HAS BEEN GETTING THE DRUG FILLED. PT ALSO STATED HE TOOK HIS PERCOCET Q4H AT HOME HOWEVER PHARMACY VERIFIED HIS PRESCRIPTION IS ORDERED Q8H PRN. PT AMBULATED IN THE ROOM WITH PHYSICAL THERAPY. TOLERATED TAKING A SHOWER THIS SHIFT. O2 SATURATION HAS MAINTAINED 90-92% ON 3 L NC. WILL CONTINUE TO MONITOR.
--- NOTE | 2023-08-27 15:47 | PC.NURSE ---
Addendum entered by Zo Lucia RN 08/27/23 18:38: PT STATED HIS DAUGHTER WOULD NOT BE ABLE TO PICK HIM UP UNTIL TOMORROW. DR. JACOB NOTIFIED. Original Note: NOTIFIED AND HE STATED [facility] DOES NOT HAVE ANY BEDS AT THIS TIME AND IF PT IS NO LONGER ON THE LEVOPHED DRIP HE WOULD BE OKAY WITH DISCHARGING PT HOME. PT STATED HE WAS GOOD WITH BEING DISCHARGED AND STATED HE WOULD WORK ON FINDING A RIDE.
[2023-08-27] MEDS: levoFLOXacin 750 MG TABLET PO (16:34)
--- NOTE | 2023-08-27 17:41 | HMH.PTEV ---
Physical Therapy Evaluation Rehab PT IP Evaluation Start: 08/25/23 15:27 Freq: ONCE Status: Active Protocol: Document 08/26/23 09:51 NORMA (Rec: 08/26/23 09:56 SPENCERMELODIE [id number]) Subjective/History History History 58 yowm adm to [facility] with COPD exac. He has PMH of COPD, HTN, HLD, CHF, AICD, DDD. He reports he lives with his daughter, 1 NENA the home, and he is generally independent with all mobility using a RW at baseline. Subjective Subjective I really want to go to [place] or home. He has no c /o at this time except baseline SOA with exertion. New diagnosis of cancer in past 12 No months? Rehab PT IP Eval Objective Appearance Patient Behavior Appropriate Patient Orientation Person,Place,Time Difficulty following instructions none Speech Pattern Clear Ambulation Patient Able to Ambulate Yes Ambulation Observation IP General Gait Pattern Observation Wide Based Gait,Shuffling Step Ambulation Distance (feet) 5 Ambulation Assistive Device Rolling Walker Ambulation Ability Contact Guard/Hand Hold Balance Ability to Arise Able, uses arms to help Sitting Balance Steady, safe Standing Balance Steady, wide stance Dynamic Sitting Balance Ability Good Dynamic Standing Balance Ability Good Transfers Bed Transfer Ability Contact Guard/Hand Hold Chair Transfer Ability Contact Guard/Hand Hold Sit to Stand Bed Transfer Ability Contact Guard/Hand Hold Sit to Stand Chair Transfer Ability Contact Guard/Hand Hold Rehab PT IP prob,goals,plan Problems Date of Evaluation: 08/26/23 PT IP Problems Bed Mobility,Transfers,Gait Rehab Potential Rehab Potential Good Plan PT Intervention Plan Bed Mobility,Transfers,Gait, Therapeutic Exercise PT Plan Frequency Daily Duration LOS Discharge Goals Bed Transfer Ability Supervision/Stand by Sit to Stand Chair Transfer Ability Supervision/Stand by Ambulation Assistive Device Rolling Walker Ambulation Distance (feet) 20 Discharge Plan PT Discharge Plan Pt is currently appropriate to return home once medically stable for d/c if he has expected family assist available. Skilled intervention is needed to prevent further debility, falls, injury, or wounds. Eval Complexity Eval Charge Codes 01599 - High Complexity PHYSICIAN CERTIFICATION: I certify the specified therapy services for Jonathan Matt are required, authorized, and reviewed every 30 days.
[2023-08-27] MEDS: PANTOPRAZOLE 40MG TABLET 40 MG PO (20:48)
[2023-08-27] MEDS: ATORVASTATIN 40MG TABLET 40 MG PO (20:48)
[2023-08-27] MEDS: ROPINIROLE 1MG TABLET 1 MG PO (20:49)
[2023-08-27] MEDS: ACETAMINOPHEN 325MG TAB 650 MG PO (22:27)
[2023-08-28] VITALS (13 sets, daily range): BP systolic 90–102; BP diastolic 51–63; PULSE 60–78; RESP 16–21; TEMP 36.7–36.9; O2SAT 90–99; BMI 22.3
[2023-08-28] MEDS: IPRATROPIUM/ALBUTEROL 3 ML NEB IH ×5 (00:16→23:58)
[2023-08-28] MEDS: FLUTICASONE/UMECLIDIN/VILANTER 200/62.5/25MCG INHALER 1 PUFF IH (06:05)
[2023-08-28] MEDS: OXYCODONE 10MG W/APAP 325MG TABLET 1 EACH PO ×3 (06:56→21:35)
[2023-08-28] MEDS: LEVOTHYROXINE 50MCG (0.05MG) TAB 50 MCG PO (07:06)
[2023-08-28] MEDS: SOTALOL 80MG TABLET 80 MG PO ×2 (08:36→21:35)
[2023-08-28] MEDS: POTASSIUM CHLORIDE 10MEQ TABLET.ER 10 MEQ PO (08:36)
[2023-08-28] MEDS: FERROUS SULFATE 325MG TABLET 325 MG PO ×2 (08:36→21:34)
[2023-08-28] MEDS: guaiFENesin 600 MG TAB.ER.12H PO ×2 (08:36→21:34)
[2023-08-28] MEDS: MIDODRINE HCL 5 MG TABLET PO ×2 (08:36→21:35)
[2023-08-28] MEDS: APIXABAN 5MG TABLET 5 MG PO ×2 (08:36→21:34)
[2023-08-28] MEDS: GABAPENTIN 800MG TABLET 800 MG PO ×3 (08:36→21:34)
--- NOTE | 2023-08-28 10:40 | P.DS_ITS ---
General Admission date:: 08/25/23 Discharge date: 08/28/23 HPI HPI HPI: This is a 58-year-old male PMHx of COPD on 3 to 4 L nasal cannula home, current smoker, hypertension, hyperlipidemia,, CHF, AICD placement currently on Eliquis twice daily, hypothyroidism, chronic neck and back pain brought in by EMS for evaluation of shortness of breath. Per ER documentation EMS stated that they received a call that patient was down and unconscious. They arrived, saturating 53% on room air and cyanotic, largely unresponsive. Blood glucose was around 120. Use [id number] on patient, give DuoNebs, patient became more responsive after the on the way. Patient has no complaints on arrival. Patient stated he was feeling bad and asked daugther to call for help, but he denied loss of consciousness. Admitted for further treatment and management. Hospital Course Hospital Course Hospital Course: Patient was seen and evaluated at the bedside on the day of discharge. Patient is stable for discharge. Patient wishes to be discharged. All patient questions were answered and patient was given time to ask questions. Patient was discharged in stable condition. Patient understands that she can return to ER in case of any sudden changes in health. Total time spent on DC - 38 mins 58-year-old male PMHx of COPD on 3 to 4 L nasal cannula home, current smoker, hypertension, hyperlipidemia,, CHF, AICD placement currently on Eliquis twice daily, hypothyroidism, chronic neck and back pain brought in by EMS for e valuation of shortness of breath.on Arrival patient was found hypoxic. Labs showed severe hypercapnia with mild leukocytocis. patient was placed on BIPAP. CXR was obtained theres is questionable bibasilar opacities. findings discussed with ER provider. Agreed for admission. Plan as follow: -Acute hypercapnic respiratory failure, bilateral bibasilar pneumonia: resolved dc on Levofloxacin suspect Cardiogenic shock - resolved New afib - started on Eliquis -History of CHF - stable -Degenerative joint disease of the lumbar spine, chronic lumbar pain: Patient on oxycodone at home Resumed. Current smoker Education provided. Smoking cessation. On nicotine patch Exam Data for Last 24 hours Vital signs and Labs for Last 24 Hours: Temp Pulse Resp BP Pulse Ox O2 Del Method O2 Flow Rate 98.5 F 72 16 90/51 L 90 L Nasal Cannula 3 08/28/23 07:28 08/28/23 08:00 08/28/23 07:28 08/28/23 07:28 08/28/23 07:28 08/28/23 08:44 08/28/23 08:44 FiO2 30 08/28/23 01:51 I & O for Last 24 hours: Intake & Output 08/25/23 08/26/23 08/27/23 08/28/23 23:59 23:59 23:59 23:59 Intake Total 2660 / 2660 4866.020 / 4866.020 5125.633 / 5725.633 840 / 840 Output Total 1415 / 1415 2035 / 2035 1450 / 1650 200 / 200 Balance 1245 / 1245 2831.020 / 2831.020 3675.633 / 4075.633 640 / 640 Weight 60.282 kg 61.774 kg 64.4 kg 64.501 kg Microbiology Reports for the Last 24 Hours: Microbiology 08/26/23 10:51 Sputum - Expectorated Sputum Gram Stain - Final 08/24/23 22:23 Blood Blood Culture - Preliminary 08/24/23 22:18 Blood Blood Culture - Preliminary Constitutional Constitutional: no acute distress *Routine HEENT Exam Head: Present normocephalic Eye: Present EOMI and PERRL ENT: Present mucous membranes moist *Routine Neck Exam Neck: Present supple; Absent lymphadenopathy *Routine Respiratory Exam Respiratory: Present CTA bilaterally *Routine Cardiovascular Exam Cardiovascular: Present RRR *Routine Abdominal Exam Abdominal: Present soft and normoactive bowel sounds; Absent tenderness *Routine Extremities Exam Extremities: Absent cyanosis, clubbing or edema *Routine Skin Exam Skin: Present warm; Absent rash *Routine Neurological Exam Neurological: Present alert and oriented X3 Results Data Completed and Pending Labs on day of discharge: Preliminary micro results at discharge 08/24/23 22:23 Blood Culture - Preliminary Blood 08/24/23 22:18 Blood Culture - Preliminary Blood DS: Diagnosis Discharge Diagnosis (1) Acute hypercapnic respiratory failure: Status: Acute Code(s): J96.02 - Acute respiratory failure with hypercapnia (2) Pneumonia: Status: Acute Code(s): J18.9 - Pneumonia, unspecified organism Qualifiers: Laterality: bilateral Lung location: lower lobe of lung Pneumonia type: due to unspecified organism Qualified Code(s): J18.9 - Pneumonia, unspecified organism (3) Acute exacerbation of chronic obstructive pulmonary disease: Status: Acute Code(s): J44.1 - Chronic obstructive pulmonary disease with (acute) exacerbation (4) Pacemaker: Status: Acute Code(s): Z95.0 - Presence of cardiac pacemaker (5) Degenerative joint disease (DJD) of lumbar spine: Status: Chronic Code(s): M47.816 - Spondylosis without myelopathy or radiculopathy, lumbar region Qualifiers: Spinal osteoarthritis complication: with radiculopathy Qualified Code(s): M47.26 - Other spondylosis with radiculopathy, lumbar region (6) Current smoker: Status: Acute Code(s): F17.200 - Nicotine dependence, unspecified, uncomplicated Meds Home Medications and Allergies Home Medications Medication Instructions Recorded Confirmed Type albuterol sulfate 90 mcg/actuation 2 inh inhalation Q4HP PRN 08/24/23 08/25/23 History aerosol inhaler (Ventolin HFA) Shortness Of Breath Or Wheezing apixaban 5 mg tablet (Eliquis) 5 mg PO BID 08/24/23 08/25/23 History atorvastatin 40 mg tablet 40 mg PO HS 08/24/23 08/25/23 History ferrous sulfate 325 mg (65 mg 325 mg PO BIDWMEAL 08/24/23 08/25/23 History iron) tablet fluticasone fur. 200 mcg-umeclid 1 inh inhalation DAILY 08/24/23 08/25/23 History 62.5 mcg-vilant 25 mcg inhalat.powder (Trelegy Ellipta) gabapentin 800 mg tablet 800 mg PO TID 08/24/23 08/25/23 History ipratropium 0.5 mg-albuterol 3 mg 3 ml inhalation Q6H PRN Shortness 08/24/23 08/25/23 History (2.5 mg base)/3 mL nebulization Of Breath Or Wheezing soln levothyroxine 50 mcg tablet 50 mcg PO AM 08/24/23 08/25/23 History ropinirole 1 mg tablet 1 mg PO HS 08/24/23 08/25/23 History sotalol 80 mg tablet 80 mg PO BID 08/24/23 08/25/23 History acetylcysteine 600 mg capsule 600 mg PO BID 08/25/23 08/25/23 History furosemide 40 mg tablet 40 mg PO DAILY 08/25/23 08/25/23 History guaifenesin 600 mg tablet, 600 mg PO BID 08/25/23 08/25/23 History extended release 12 hr naloxone 4 mg/actuation nasal spray 4 mg intranasal Q2M PRN Opioid 08/25/23 08/25/23 History Reversal oxycodone-acetaminophen 10 mg-325 1 tab PO TID PRN Chronic Pain 08/25/23 08/25/23 History mg tablet potassium chloride 10 mEq 10 meq PO AM 08/25/23 08/25/23 History tablet,extended release apixaban 5 mg tablet (Eliquis) 5 mg PO BID 30 days #60 tabs 08/28/23 Rx levofloxacin 750 mg tablet 750 mg PO 1100 5 days #5 tabs 08/28/23 Rx midodrine 5 mg tablet 5 mg PO BID 30 days #60 tabs 08/28/23 Rx pantoprazole 40 mg tablet,delayed 40 mg PO HS 30 days #30 tabs 08/28/23 Rx release New Prescriptions to Start Prescriptions: apixaban [Eliquis] Jonah,Sheriean levofloxacin Jonah,Claudy midodrine [facility]op[facility]ole [facility] Allergies Allergy/AdvReac Type Severity Reaction Status Date / Time Penicillins Allergy Difficulty Verified 08/25/23 07:12 Breathing Discharge Plan Disposition Patient Disposition: Home, Self-Care Condition: Good Discharge Order Discharge Orders: Discharge Order (Routine); Ordered 08/28/23 Ordered By: Claudy Mckenzie Follow up Plan Follow up with: Malcom Patrick MD [Staff Physician] - 2 weeks Prescriptions/Medication Reconciliation: New Eliquis 5 mg Tablet 5 mg PO BID 30 Days Qty: 60 0RF midodrine 5 mg Tablet 5 mg PO BID 30 Days Qty: 60 0RF pantoprazole 40 mg Tablet,Delayed Release (Dr/Ec) 40 mg PO HS 30 Days Qty: 30 0RF levofloxacin 750 mg Tablet 750 mg PO 1100 5 Days Qty: 5 0RF Continued atorvastatin 40 mg tablet 40 mg PO HS ropinirole 1 mg tablet 1 mg PO HS ipratropium-albuterol 0.5 mg-3 mg(2.5 mg base)/3 mL solution for nebulization 3 ml INHALATION Q6H PRN (Reason: Shortness Of Breath Or Wheezing) sotalol 80 mg tablet 80 mg PO BID gabapentin 800 mg tablet 800 mg PO TID levothyroxine 50 mcg tablet 50 mcg PO AM ferrous sulfate 325 mg (65 mg iron) tablet 325 mg PO BIDWMEAL albuterol sulfate [Ventolin HFA] 90 mcg/actuation HFA aerosol inhaler 2 inh INHALATION Q4HP PRN (Reason: Shortness Of Breath Or Wheezing) Eliquis 5 mg tablet 5 mg PO BID Trelegy Ellipta 200-62.5-25 mcg blister with device 1 inh INHALATION DAILY oxycodone-acetaminophen 10-325 mg tablet 1 tab PO TID PRN (Reason: Chronic Pain) furosemide 40 mg tablet 40 mg PO DAILY potassium chloride 10 mEq tablet extended release 10 meq PO AM acetylcysteine 600 mg Capsule 600 mg PO BID guaifenesin 600 mg Tablet Extended Release 12hr 600 mg PO BID naloxone 4 mg/actuation Cocoa,Non-Aerosol 4 mg INTRANASAL Q2M PRN (Reason: Opioid Reversal) Patient Comments: Cocoa 1 dose into one nostril; alternate nostrils with each dose until help arrives Discontinued sulfamethoxazole-trimethoprim 800-160 mg tablet 1 tab PO Q12H Problem Reconciliation Problems Reviewed?: Yes Patient Discharge Instructions ACTIVITY: Continue current activity and Ambulate as tolerated DIET: continue same diet Patient Instructions: Heart-Healthy Diet, DI for Pneumonia -- Adult, DI for Atrial Fibrillation, DI for Urinary Retention in Men, DI for Respiratory Failure Providers Primary Care Provider: Jose Salcido Admit Provider: Claudy Mckenzie Attending Provider: Claudy Mckenzie
[2023-08-28] MEDS: levoFLOXacin 750 MG TABLET PO (11:59)
--- NOTE | 2023-08-28 15:49 | PC.NURSE ---
PT HAS BEEN DISCHARGED. STAFF NOTIFIED PT'S DAUGHTER (THOR) THIS MORNING AND SHE STATED SHE WAS TRYING TO GET A HOLD OF HER SISTER B/C SHE WOULD BE THE ONE PICKING PT UP AND WHEN SHE WAS ABLE TO TALK TO HER SHE WOULD TELL PT TO LET US KNOW. ACCORDING TO PT HE HAS MADE MULTIPLE PHONE CALLS AND ACCORDING TO HIS DAUGHTER (THOR) SHE WAS UNABLE TO GET A HOLD OF THE SISTER. STAFF ATTEMPTED TO CALL OTHER DAUGHTER ELLY WHO WAS ALSO LISTED A CONTACT IN THE COMPUTER AND THERE WAS NO ANSWER. CASE MANAGEMENT NOTIFIED AND THEY STATED THE ONLY OPTION WOULD BE THE AMBULANCE BUT IT WILL BE SELF PAY. PT HAS BEEN UPDATED AND HE STATED HE WOULD CONTINUE TO CALL FOR A RIDE. PT AND PT'S DAUGHTER IS AWARE THAT PT WILL NEED HIS PORTABLE OXYGEN BROUGHT FROM HOME.
--- NOTE | 2023-08-28 18:32 | PC.NURSE ---
PT'S RIDE ARRIVED AND PT STATED HE DID NOT FEEL RIGHT AND DID NOT FEEL LIKE HE NEEDED TO GO HOME. PT'S VSS. O2 SATURATION 90% ON 3 L NC. LUNG SOUNDS DIMINISHED (NO WHEEZES). PT REQUESTED TO TALK TO . ASSESSED PT AND ASKED PT HOW HE FELT ABOUT GOING HOME. PT STATED I WANT TO GO HOME BUT I DO NOT WANT TO GO HOME AND HAVE TO COME RIGHT BACK. STATED HE WOULD KEEP PT TILL TOMORROW.
[2023-08-28] MEDS: ATORVASTATIN 40MG TABLET 40 MG PO (21:34)
[2023-08-28] MEDS: PANTOPRAZOLE 40MG TABLET 40 MG PO (21:35)
[2023-08-28] MEDS: ROPINIROLE 1MG TABLET 1 MG PO (21:35)
[2023-08-29] VITALS: BP 99/53; PULSE 60; PULSE 81; RESP 18; TEMP 36.6; O2SAT 97
[2023-08-29] MEDS: ACETAMINOPHEN 325MG TAB 650 MG PO (00:47)
[2023-08-29] MEDS: OXYCODONE 10MG W/APAP 325MG TABLET 1 EACH PO (03:29)
[2023-08-29 04:00] VITALS: BP 105/58; PULSE 65; PULSE 67; RESP 18; TEMP 36.6; O2SAT 98; BMI 22.3
[2023-08-29] MEDS: IPRATROPIUM/ALBUTEROL 3 ML NEB IH ×2 (06:28→11:48)
--- NOTE | 2023-08-29 06:33 | PC.NURSE ---
Patient has rested well through out the night. Complaints from chronic back pain, treated per OCT. No acute changes noted. Remains on 3lNC (baseline). Lungs are diminished throughout. Call rajput, personal belongings, water pitcher, and bedside table all within reach. Plan of care and medsurg policies continue.
[2023-08-29] MEDS: FLUTICASONE/UMECLIDIN/VILANTER 200/62.5/25MCG INHALER 1 PUFF IH (06:35)
[2023-08-29 07:42] VITALS: BP 111/67; PULSE 68; RESP 18; TEMP 36.7; O2SAT 92
[2023-08-29 08:00] VITALS: PULSE 70
[2023-08-29] MEDS: LEVOTHYROXINE 50MCG (0.05MG) TAB 50 MCG PO (09:09)
[2023-08-29] MEDS: POTASSIUM CHLORIDE 10MEQ TABLET.ER 10 MEQ PO (09:10)
[2023-08-29] MEDS: FUROSEMIDE 40 MG TABLET PO (09:10)
[2023-08-29] MEDS: APIXABAN 5MG TABLET 5 MG PO (09:10)
[2023-08-29] MEDS: SOTALOL 80MG TABLET 80 MG PO (09:10)
[2023-08-29] MEDS: FERROUS SULFATE 325MG TABLET 325 MG PO (09:10)
[2023-08-29] MEDS: GABAPENTIN 800MG TABLET 800 MG PO (09:10)
[2023-08-29] MEDS: MIDODRINE HCL 5 MG TABLET PO (09:10)
[2023-08-29] MEDS: guaiFENesin 600 MG TAB.ER.12H PO (09:10)
--- NOTE | 2023-08-29 10:02 | XR_ITS ---
PROCEDURE INFORMATION: Exam: XR Chest Exam date and time: 08/29/2023 10:26 AM Age: 58 years old Clinical indication: Cough; Prior surgery; Surgery date: 6+ months; Surgery type: Pacemaker; Additional info: Cough. Smoker. Copd TECHNIQUE: Imaging protocol: Radiologic exam of the chest. Views: 1 view. COMPARISON: CT ANGIO CHEST PE PROTOCOL 08/25/2023 2:23 PM FINDINGS: Tubes, catheters and devices: Pacer stable. Lungs: Bibasilar interstitial opacities, new since previous. Pneumonitis or edema. Emphysematous changes. Calcified granulomas right upper lobe. Pleural spaces: Unremarkable. No pleural effusion. No pneumothorax. Heart/Mediastinum: Unremarkable. No cardiomegaly. Bones/joints: Unremarkable. IMPRESSION: Bibasilar interstitial opacities, new since previous. Pneumonitis or edema.
--- NOTE | 2023-08-29 10:58 | EXP.DC.SUM ---
General Admission date:: 08/25/23 Discharge date: 08/29/23 HPI HPI HPI: This is a 58-year-old male PMHx of COPD on 3 to 4 L nasal cannula home, current smoker, hypertension, hyperlipidemia,, CHF, AICD placement currently on Eliquis twice daily, hypothyroidism, chronic neck and back pain brought in by EMS for evaluation of shortness of breath. Per ER documentation EMS stated that they received a call that patient was down and unconscious. They arrived, saturating 53% on room air and cyanotic, largely unresponsive. Blood glucose was around 120. Use [id number] on patient, give DuoNebs, patient became more responsive after the on the way. Patient has no complaints on arrival. Patient stated he was feeling bad and asked daugther to call for help, but he denied loss of consciousness. Admitted for further treatment and management. Hospital Course Hospital Course Hospital Course: Patient was seen and evaluated at the bedside on the day of discharge. Patient is stable for discharge. Patient wishes to be discharged. All patient questions were answered and patient was given time to ask questions. Patient was discharged in stable condition. Patient understands that she can return to ER in case of any sudden changes in health. Total time spent on DC - 38 mins 58-year-old male PMHx of COPD on 3 to 4 L nasal cannula home, current smoker, hypertension, hyperlipidemia,, CHF, AICD placement currently on Eliquis twice daily, hypothyroidism, chronic neck and back pain brought in by EMS for evaluation of shortness of breath.on Arrival patient was found hypoxic. Labs showed severe hypercapnia with mild leukocytocis. patient was placed on BIPAP. CXR was obtained theres is questionable bibasilar opacities. findings discussed with ER provider. Agreed for admission. Plan as follow: -Acute hypercapnic respiratory failure, bilateral bibasilar pneumonia: resolved dc on Levofloxacin repeat Cxray on 08/29 - possible pneumonitis, patient at baseline O2 needs and have been able to walk in the hallways, and to the bathroom w/o any issues, started on PO azithromycin, stable for discharge suspect Cardiogenic shock - resolved New afib - started on Eliquis -History of CHF - stable -Degenerative joint disease of the lumbar spine, chronic lumbar pain: Patient on oxycodone at home Resumed. Current smoker Education provided. Smoking cessation. On nicotine patch Exam Data for Last 24 hours Vital signs and Labs for Last 24 Hours: Temp Pulse Resp BP Pulse Ox O2 Del Method O2 Flow Rate 98.0 F 68 18 111/67 92 L Nasal Cannula 4 08/29/23 07:42 08/29/23 07:42 08/29/23 07:42 08/29/23 07:42 08/29/23 07:42 08/29/23 09:00 08/29/23 07:42 FiO2 32 08/28/23 19:08 I & O for Last 24 hours: Intake & Output 08/26/23 08/27/23 08/28/23 08/29/23 23:59 23:59 23:59 23:59 Intake Total 4866.020 / 4866.020 5125.633 / 5725.633 2040 / 2400 600 / 600 Output Total 2034 / 2034 1450 / 1650 200 / 350 725 / 725 Balance 2831.020 / 2831.020 3675.633 / 4075.633 1840 / 0 -125 / -125 Weight 61.774 kg 64.4 kg 64.501 kg 64.501 kg Microbiology Reports for the Last 24 Hours: Microbiology 08/26/23 10:51 Sputum - Expectorated Sputum Gram Stain - Final 08/26/23 10:51 Sputum - Expectorated Sputum Sputum Culture - Preliminary 08/24/23 22:18 Blood Blood Culture - Preliminary 08/24/23 22:23 Blood Blood Culture - Preliminary Constitutional Constitutional: no acute distress *Routine HEENT Exam Head: Present normocephalic Eye: Present EOMI and PERRL ENT: Present mucous membranes moist *Routine Neck Exam Neck: Present supple; Absent lymphadenopathy *Routine Respiratory Exam Respiratory: Present CTA bilaterally *Routine Cardiovascular Exam Cardiovascular: Present RRR *Routine Abdominal Exam Abdominal: Present soft and normoactive bowel sounds; Absent tenderness *Routine Extremities Exam Extremities: Absent cyanosis, clubbing or edema *Routine Skin Exam Skin: Present warm; Absent rash *Routine Neurological Exam Neurological: Present alert and oriented X3 Results Data Completed and Pending Labs on day of discharge: Preliminary micro results at discharge 08/26/23 10:51 Sputum Culture - Preliminary Sputum - Expectorated Sputum 08/24/23 22:18 Blood Culture - Preliminary Blood 08/24/23 22:23 Blood Culture - Preliminary Blood DS: Diagnosis Discharge Diagnosis (1) Acute hypercapnic respiratory failure: Status: Acute Code(s): J96.02 - Acute respiratory failure with hypercapnia (2) Pneumonia: Status: Acute Code(s): J18.9 - Pneumonia, unspecified organism Qualifiers: Laterality: bilateral Lung location: lower lobe of lung Pneumonia type: due to unspecified organism Qualified Code(s): J18.9 - Pneumonia, unspecified organism (3) Acute exacerbation of chronic obstructive pulmonary disease: Status: Acute Code(s): J44.1 - Chronic obstructive pulmonary disease with (acute) exacerbation (4) Pacemaker: Status: Acute Code(s): Z95.0 - Presence of cardiac pacemaker (5) Degenerative joint disease (DJD) of lumbar spine: Status: Chronic Code(s): M47.816 - Spondylosis without myelopathy or radiculopathy, lumbar region Qualifiers: Spinal osteoarthritis complication: with radiculopathy Qualified Code(s): M47.26 - Other spondylosis with radiculopathy, lumbar region (6) Current smoker: Status: Acute Code(s): F17.200 - Nicotine dependence, unspecified, uncomplicated Meds Home Medications and Allergies Home Medications Medication Instructions Recorded Confirmed Type albuterol sulfate 90 mcg/actuation 2 inh inhalation Q4HP PRN 08/24/23 08/25/23 History aerosol inhaler (Ventolin HFA) Shortness Of Breath Or Wheezing apixaban 5 mg tablet (Eliquis) 5 mg PO BID 08/24/23 08/25/23 History atorvastatin 40 mg tablet 40 mg PO HS 08/24/23 08/25/23 History ferrous sulfate 325 mg (65 mg 325 mg PO BIDWMEAL 08/24/23 08/25/23 History iron) tablet fluticasone fur. 200 mcg-umeclid 1 inh inhalation DAILY 08/24/23 08/25/23 History 62.5 mcg-vilant 25 mcg inhalat.powder (Trelegy Ellipta) gabapentin 800 mg tablet 800 mg PO TID 08/24/23 08/25/23 History ipratropium 0.5 mg-albuterol 3 mg 3 ml inhalation Q6H PRN Shortness 08/24/23 08/25/23 History (2.5 mg base)/3 mL nebulization Of Breath Or Wheezing soln levothyroxine 50 mcg tablet 50 mcg PO AM 08/24/23 08/25/23 History ropinirole 1 mg tablet 1 mg PO HS 08/24/23 08/25/23 History sotalol 80 mg tablet 80 mg PO BID 08/24/23 08/25/23 History acetylcysteine 600 mg capsule 600 mg PO BID 08/25/23 08/25/23 History furosemide 40 mg tablet 40 mg PO DAILY 08/25/23 08/25/23 History guaifenesin 600 mg tablet, 600 mg PO BID 08/25/23 08/25/23 History extended release 12 hr naloxone 4 mg/actuation nasal spray 4 mg intranasal Q2M PRN Opioid 08/25/23 08/25/23 History Reversal oxycodone-acetaminophen 10 mg-325 1 tab PO TID PRN Chronic Pain 08/25/23 08/25/23 History mg tablet potassium chloride 10 mEq 10 meq PO AM 08/25/23 08/25/23 History tablet,extended release apixaban 5 mg tablet (Eliquis) 5 mg PO BID 30 days #60 tabs 08/28/23 Rx levofloxacin 750 mg tablet 750 mg PO 1100 5 days #5 tabs 08/28/23 Rx midodrine 5 mg tablet 5 mg PO BID 30 days #60 tabs 08/28/23 Rx pantoprazole 40 mg tablet,delayed 40 mg PO HS 30 days #30 tabs 08/28/23 Rx release azithromycin 500 mg tablet 500 mg PO DAILY 5 days #5 tabs 08/29/23 Rx New Prescriptions to Start Prescriptions: apixaban [Eliquis] Jonah,Claudy azithromycin Jonah,Claudy levofloxacin Jonah,Claudy midodrine Jonah,Claudy pantoprazole Jonah,Claudy Allergies Allergy/AdvReac Type Severity Reaction Status Date / Time Penicillins Allergy Difficulty Verified 08/25/23 07:12 Breathing Discharge Plan Disposition Patient Disposition: Home, Self-Care Condition: Good Discharge Order Discharge Orders: Discharge Order (Routine); Ordered 08/29/23 Ordered By: Claudy Mckenzie Follow up Plan Follow up with: Maclom Patrick MD [Staff Physician] - 2 weeks Prescriptions/Medication Reconciliation: New Eliquis 5 mg Tablet 5 mg PO BID 30 Days Qty: 60 0RF midodrine 5 mg Tablet 5 mg PO BID 30 Days Qty: 60 0RF pantoprazole 40 mg Tablet,Delayed Release (Dr/Ec) 40 mg PO HS 30 Days Qty: 30 0RF levofloxacin 750 mg Tablet 750 mg PO 1100 5 Days Qty: 5 0RF azithromycin 500 mg tablet 500 mg PO DAILY 5 Days Qty: 5 0RF Continued atorvastatin 40 mg tablet 40 mg PO HS ropinirole 1 mg tablet 1 mg PO HS ipratropium-albuterol 0.5 mg-3 mg(2.5 mg base)/3 mL solution for nebulization 3 ml INHALATION Q6H PRN (Reason: Shortness Of Breath Or Wheezing) sotalol 80 mg tablet 80 mg PO BID gabapentin 800 mg tablet 800 mg PO TID levothyroxine 50 mcg tablet 50 mcg PO AM ferrous sulfate 325 mg (65 mg iron) tablet 325 mg PO BIDWMEAL albuterol sulfate [Ventolin HFA] 90 mcg/actuation HFA aerosol inhaler 2 inh INHALATION Q4HP PRN (Reason: Shortness Of Breath Or Wheezing) Eliquis 5 mg tablet 5 mg PO BID Trelegy Ellipta 200-62.5-25 mcg blister with device 1 inh INHALATION DAILY oxycodone-acetaminophen 10-325 mg tablet 1 tab PO TID PRN (Reason: Chronic Pain) furosemide 40 mg tablet 40 mg PO DAILY potassium chloride 10 mEq tablet extended release 10 meq PO AM acetylcysteine 600 mg Capsule 600 mg PO BID guaifenesin 600 mg Tablet Extended Release 12hr 600 mg PO BID naloxone 4 mg/actuation [place],Non-Aerosol 4 mg INTRANASAL Q2M PRN (Reason: Opioid Reversal) Patient Comments: [place] 1 dose into one nostril; alternate nostrils with each dose until help arrives Discontinued sulfamethoxazole-trimethoprim 800-160 mg tablet 1 tab PO Q12H Problem Reconciliation Problems Reviewed?: Yes Patient Discharge Instructions ACTIVITY: Ambulate as tolerated DIET: advance to your usual diet Additional Instructions: follow up with your Heart doctor and PCP Patient Instructions: Heart-Healthy Diet, DI for Pneumonia -- Adult, DI for Atrial Fibrillation, DI for Urinary Retention in Men, DI for Respiratory Failure Providers Primary Care Provider: Jose Salcido Admit Provider: Claudy Mckenzie Attending Provider: Claudy Mckenzie
[2023-08-29] MEDS: levoFLOXacin 750 MG TABLET PO (11:30)
[2023-08-29 12:00] VITALS: PULSE 70
--- NOTE | 2023-08-29 12:05 | PC.NURSE ---
I spoke with Ruthann Wheeler with case management on possible transportation for pt. Unfortunately there are not any options other than self pay ambulance service or personal vehicle. I spoke with pt's daughter Medina at 1203 and she states she is waiting for her sister whom she shares a vehicle with, to return her phone call. She says one of them with pick him up when they are able to. Attempted to contact other [facility] Ericka [facility]. Pt has been medically discharged and explained to pt that if he was to develop and complaints prior to his ride arriving that we would have him evaluated in the ED. Pt verbalized understanding and is continuing to look for transportation.
--- NOTE | 2023-08-31 10:31 | HMH.PTEV ---
Physical Therapy Evaluation Rehab PT IP Evaluation Start: 08/25/23 15:27 Freq: ONCE Status: Discharge Protocol: Document 08/26/23 09:51 NORMA (Rec: 08/26/23 09:56 SPENCERMELODIE [id number]) Subjective/History History History 58 yowm adm to [facility] with COPD exac. He has PMH of COPD, HTN, HLD, CHF, AICD, DDD. He reports he lives with his daughter, 1 NENA the home, and he is generally independent with all mobility using a RW at baseline. Subjective Subjective I really want to go to [place] or home. He has no c /o at this time except baseline SOA with exertion. New diagnosis of cancer in past 12 No months? Rehab PT IP Eval Objective Appearance Patient Behavior Appropriate Patient Orientation Person,Place,Time Difficulty following instructions none Speech Pattern Clear Ambulation Patient Able to Ambulate Yes Ambulation Observation IP General Gait Pattern Observation Wide Based Gait,Shuffling Step Ambulation Distance (feet) 5 Ambulation Assistive Device Rolling Walker Ambulation Ability Contact Guard/Hand Hold Balance Ability to Arise Able, uses arms to help Sitting Balance Steady, safe Standing Balance Steady, wide stance Dynamic Sitting Balance Ability Good Dynamic Standing Balance Ability Good Transfers Bed Transfer Ability Contact Guard/Hand Hold Chair Transfer Ability Contact Guard/Hand Hold Sit to Stand Bed Transfer Ability Contact Guard/Hand Hold Sit to Stand Chair Transfer Ability Contact Guard/Hand Hold Rehab PT IP prob,goals,plan Problems Date of Evaluation: 08/26/23 PT IP Problems Bed Mobility,Transfers,Gait Rehab Potential Rehab Potential Good Plan PT Intervention Plan Bed Mobility,Transfers,Gait, Therapeutic Exercise PT Plan Frequency Daily Duration LOS Discharge Goals Bed Transfer Ability Supervision/Stand by Sit to Stand Chair Transfer Ability Supervision/Stand by Ambulation Assistive Device Rolling Walker Ambulation Distance (feet) 20 Discharge Plan PT Discharge Plan Pt is currently appropriate to return home once medically stable for d/c if he has expected family assist available. Skilled intervention is needed to prevent further debility, falls, injury, or wounds. Eval Complexity Eval Charge Codes 85255 - High Complexity PHYSICIAN CERTIFICATION: I certify the specified therapy services for Jonathan Matt are required, authorized, and reviewed every 30 days.
--- NOTE | 2023-08-31 13:48 | CARE MANAGER ---
Contacted patient related to hospital discharge. He states he picked up all his medications. He is going to follow up with his doctors in [place] he states. Denies questions or concerns. JEFFERSON Nieto
== END 2023-08-29 12:14 | disposition home or self-care (01) | DRG 193 ==
LOC: ER 23:00 → 2ND 23:38
PROVIDERS: Internal Medicine Pulmonary Disease; Nurse Practitioner Family; Admitting Provider Internal Medicine; Emergency Provider Emergency Medicine; PCP Family Medicine; Visit Provider Internal Medicine
DX: J18.9 Pneumonia, unspecified organism (principal); J96.21 Acute and chronic respiratory failure with hypoxia; R57.0 Cardiogenic shock; J44.1 Chronic obstructive pulmonary disease with (acute) exacerbation; J44.0 Chronic obstructive pulmonary disease with (acute) lower respiratory infection; Z99.81 Dependence on supplemental oxygen; I10 Essential (primary) hypertension; E78.5 Hyperlipidemia, unspecified; M54.9 Dorsalgia, unspecified; M54.2 Cervicalgia; G89.29 Other chronic pain; Z95.810 Presence of automatic (implantable) cardiac defibrillator; I25.10 Atherosclerotic heart disease of native coronary artery without angina pectoris; I48.91 Unspecified atrial fibrillation; M47.9 Spondylosis, unspecified; F17.200 Nicotine dependence, unspecified, uncomplicated
CPT/HCPCS: 36415; 71045; 71275; 80048; 80053; 81001; 82803; 83605; 83735; 83880; 84484; 85007; 85025; 87040; 87070; 87205; 93005; 93306; 94640; 94660; 94761; 97116; 97163; 97165; 97530; 99291; J0696; J1956; J3475; Q9967

== ENCOUNTER 2025-06-16 13:26 | Outpatient (CLI) | payer OTHER, SELFPAY ==
--- OUTSIDE RECORDS SUMMARY | 2025-05-06 11:13 | XMS_ITS | Encounter Summary ---
Author Organization [place] [address] Care Team Providers Care Adoption Specialist Name Role Phone Jose Salcido MD Unavailable [phone] Tamir Resendez MD Unavailable [phone] Deion Quinn MD Primary Care Provider [phone] Reason for Visit * Reason Comments Shortness of Breath Pt presents per ems from private residence. Pt c/o sob. Duoneb, EKG, iv, zofran 4mg, solumedrol per ems, * Auth/Cert/Inpt Specialty Diagnoses / Procedures Referred By Darrick t Referred To Contact Diagnoses COPD exacerbation (HCC) Referral ID Status Reason Start Date Expiration Date Visits Re quested Visits Authorized [id number] 1 1 Encounter Details Date Type Department Care Team (Latest Contact Info) Description 05/06/2025 12:13 PM EDT - 05/07/2025 10:32 AM EDT Hospital Encounter EDG 2[place] [address] Leonardo Alcazar MD [address] [place] [address] [place] [address] Malcom Garcia MD [address] [place] [id number] COPD exacerbation (HCC) (Primary Dx); COPD, severe (HCC) Discharge Disposition: Home or Self Care Social History Tobacco Use Types Packs/Day Years Used Date Smoking Tobacco: Every Day Cigarettes 3.8 44.9 Started: 08/09/1980 Passive Smoke Exposure: Current Smokeless Tobacco: Never Alcohol Use Standard Drinks/Week Comments No 0 (1 standard drink = 0.6 oz pur e alcohol) PHQ-2 Answer Date Recorded PHQ-2 Total Score 0 03/30/2025 PRAPARE - Transportation Answer Date Re corded In the past 12 months, has l ack of transportation kept you from medical appointments or from getting medications? No 10/2022 In the past 12 months, has l ack of transportation kept you from meetings, work, or from getting things needed for daily living? No 06/11/2023 Housing Stability Vital Sign Answer Leroy e Recorded In the last 12 months, was t here a time when you were not able to pay the mortgage or rent on time? Yes 03/26/2023 In the last 12 months, how many places have you lived? 4 03/26/2023 In the last 12 months, was t here a time when you did not have a steady place to sleep or slept in a fci (including now)? Yes 03/26/2023 Housing Stability Vital Sign Answer Leroy e Recorded In the last 12 months, was t here a time when you were not able to pay the mortgage or rent on time? No 03/03/2024 In the past 12 months, how m any times have you moved where you were living? 1 03/03/2024 At any time in the past 12 m ont, were you homeless or living in a fci (including now)? No 03/03/2024 Overall Financial Resource Strain (CARDIA) Answe r Date Recorded How hard is it for you to pa y for the very basics like food, housing, medical care, and heating? Patient declined 05/06/2025 [facility] - Occupational Stress Questionnaire Answer Date Recorded Do you feel stress - tense, restless, nervous, or anxious, or unable to sleep at night because your mind is troubled all the time - these days? Patient declined 05/06/2025 Exercise Vital Sign Answer Date Recorde d On average, how many days pe r week do you engage in moderate to strenuous exercise (like a brisk walk)? Patient declined On average, how many minutes do you engage in exercise at this level? Patient declined 05/06/2025 Hunger Vital Sign Answer Date Recorded Within the past 12 months, y ou worried that your food would run out before you got the money to buy more. Patient declined Within the past 12 months, t he food you bought just didn't last and you didn't have money to get more. Patient declined [facility] Utilities Answer Date Recorded In the past 12 months has th e [employer], gas, oil, or water company threatened to shut off services in your home? Patient declined 05/06/2025 [facility] IP Transportation Answer D ate Recorded In the past 12 months, has l ack of reliable transportation kept you from medical appointments, meetings, work or from getting things needed for daily living? Patient declined 05/06/2025 Sexually Active Control Partners Comments Yes Female Sex and Gender Information Value Date Recorded Sex Assigned at Not on file Legal Sex Male 2:47 PM EDT Gender Identity Not on file Sexual Orientation Not on file documented as of this encounter Last Filed Vital Signs Vital Sign Reading Time Taken Comments Blood Pressure 95/50 05/07/2025 8:36 AM EDT Pulse 80 05/07/2025 8:47 AM EDT Temperature 36.5 C (97.7 F) 05/07/2025 8:36 AM EDT Respiratory Rate 14 05/07/2025 8:47 AM EDT Oxygen Saturation 93% 05/07/2025 8:3 6 AM EDT Simultaneous filing. User may not have seen previous data. Inhaled Oxygen Concentration - - Weight 69.4 kg (153 lb) 05/06/2025 12:1 6 PM EDT Height - - Body Mass Index 24.69 03/30/2025 2:41 PM EDT documented in this encounter Functional Status * Cognitive and Functional Status Question Answer Date of Assessment Author Is the person deaf or does h e/she have serious difficulty hearing? No 05/07/2025 9:43 AM EDT Elizabeth Sidhu RN Is the person blind or does he/she have serious difficulty seeing even when wearing glasses? No 05/07/2025 9:43 AM EDT Elizabeth Dubose RN Does this person have seriou s difficulty walking or climbing stairs? No 05/07/2025 9:43 AM Elizabeth Burnett RN Does this person have diffic ulty dressing or bathing? No 05/07/2025 9:43 AM Elizabeth Burnett RN * Alcohol Screening Score Answer Date of Assessment Author 0 05/06/2025 2:00 PM Sarah Varghese RN * Drug Screening Score Answer Date of Assessment Author 0 05/06/2025 2:00 PM Sarah Varghese RN * Question Answer Date of Assessment Author How often do you have a drin k containing alcohol? 0 05/06/2025 2:00 PM EDT Nhan Antonio R N How many drinks containing a lcohol do you have on a typical day when you are drinking? 0 05/06/2025 2:00 PM EDT Nhan Antonio R N How often do you have six or more drinks on one occasion? 0 05/06/2025 2:00 PM Clement Varghese RN AUDIT-C to Determine Rows 4-10 0 05/06/2025 2:00 PM Nhan Varghese RN * Is the person deaf or does he/she have serious difficulty hearing? Answer Date of Assessment Author No 05/07/2025 9:43 AM Elizabeth Burnett RN * Is the person blind or does he/she have serious difficulty seeing even when wearing glasses? Answer Date of Assessment Author No 05/07/2025 9:43 AM Elizabeth Burnett RN * Does this person have serious difficulty walking or climbing stairs? Answer Date of Assessment Author No 05/07/2025 9:43 AM Elizabeth Burnett RN * Does this person have difficulty dressing or bathing? Answer Date of Assessment Author No 05/07/2025 9:43 AM Elizabeth Burnett RN * Because of a physical, mental or emotional condition, does this person have difficulty doing errands alone such as visiting a doctor's office or shopping? Answer Date of Assessment Author No 05/07/2025 9:43 AM Elizabeth Burnett RN * Suicide Severity Rating Answer Date of Assessment Author No Risk 05/06/2025 12:22 PM EDT Bertha Alston RN * Holt Suicide Severity Rating Scale (Q shift for moderate and high) Question Answer Date of Assessment Author 1. In the past month, have y ou wished you were or wished you could go to sleep and not wake up? 0 05/06/2025 12:22 PM EDT Mylene Alston RN 2. In the past month, have y ou actually had any thoughts of killing yourself? (If no, skip to question 6) 0 05/06/2025 12:22 PM EDT Mylene Alston RN 6. Have you ever done anythi ng, started to do anything, or prepared to do anything to end your life? 0 05/06/2025 12:22 PM EDT Mylene Alston RN documented as of this encounter Mental Status * Cognitive and Functional Status Question Answer Entry Date Author Because of a physical, menta l or emotional condition, does this person have difficulty doing errands alone such as visiting a doctor's office or shopping? No 05/07/2025 9:43 AM Elizabeth Burnett RN Because of a physical, menta l or emotional condition, does this person have serious difficulty concentrating, remembering or making decisions? No 05/07/2025 9:43 AM Elizabeth Burnett RN * Because of a physical, mental or emotional condition, does this person have serious difficulty concentrating, remembering or making decisions? Answer Entry Date Author No 05/07/2025 9:43 AM Elizabeth Burnett RN documented in this encounter Discharge Summaries * Malcom Garcia MD - 05/07/2025 8:28 AM EDT Images from the original note were not included. [facility] Discharge Summary Patient Name: Tolu Stanley : 1965 Admit Date: 05/06/2025 Discharge Date: 05/07/2025 Admitting Physician: Malcom Garcia MD Discharging Physician: Malcom Garcia MD Reason for Hospitalization: Active Hospital Problems Acute on chronic hypoxic respiratory failure (HCC) *COPD exacerbation (HCC) Narcotic dependence (HCC) Sinus node dysfunction (HCC) Tachycardia-bradycardia (HCC) Paroxysmal A-fib (HCC) COPD, severe (HCC) Brief Hospital Summary: Tolu Stanley is a 59 y.o. male with PMHx of severe COPD, chronic hypoxic resp failure (baseline2-3L NC), CAD, hypothyroidism, paroxysmal afib on eliquis and sotalol, HTN/HLD presenting to hospital on 05/06/2025 for SOB. Acute on Chronic Hypoxic Resp Failure COPDe - suspect in setting of running out of inhalers @ home + vaping - doing much better today 05/07 -- stable for DC - change to PO pred taper - refill home inhalers (trelegy ordered) - wean O2 as tolerated goal sats 88 to 92% in COPD Coronary Artery Disease - denies any CP at this time Afib - sotalol + eliquis HTN - lisinopril Tachybrady Syndrome s/p PPM Hypothyroidism - continue synthroid Labs and imaging follow-up needed: none Consultants: none Discharge Exam: Vitals: 05/07/25 0518 BP: 100/66 Pulse: 78 Resp: 14 Temp: 98.1 ??F (36.7 ??C) SpO2: 93% Gen: NAD. AAOx3. Laying flat in bed. Non-toxic appearing. CV: RRR. Normal s1 and s2. No murmurs/rubs/gallops. No edema in lower extremities. Resp: faint wheezes throughout. No resp distress remains on baseline 2L NC. Abd: soft, non-TTP. Positive bowel sounds. Neuro: No focal deficits on exam. Correct Full Discharge Med List: Medication List START taking these medications predniSONE 20 mg Tab Qty: 15 Tablet Refills: 0 Start: May 07, 2025 Commonly known as: DELTASONE Take 2 Tablets by mouth daily for 3 days, THEN 1.5 Tablets daily for 3 days, THEN 1 Tablet daily for 3 days, THEN 0.5 Tablets daily for 3 days. CONTINUE taking these medications acetylcysteine 600 mg Cap Dose: 600 mg Qty: 60 Capsule Refills: 6 Commonly known as: NAC 600 mg, Oral, 2 TIMES DAILY albuterol 90 mcg/actuation Hfaa Dose: 2 Puff Qty: 18 Each Refills: 6 Commonly known as: VENTOLIN HFA 2 Puffs, Inhalation, EVERY 4 HOURS PRN, for wheezing apixaban 5 mg Tab Dose: 5 mg Qty: 60 Tablet Refills: 5 Commonly known as: ELIQUIS 5 mg, Oral, 2 TIMES DAILY atorvastatin 40 mg Tab Dose: 40 mg Qty: 90 Tablet Refills: 2 Comment: DX Code Needed . Commonly known as: LIPITOR 40 mg, Oral, NIGHTLY gabapentin 800 mg Tab Dose: 800 mg Refills: 0 Commonly known as: NEURONTIN guaiFENesin 600 mg Ta12 Dose: 600 mg Qty: 60 Each Refills: 0 Commonly known as: MUCINEX 600 mg, Oral, 2 TIMES DAILY LEVOthyroxine 50 mcg Tab Dose: 50 mcg Qty: 90 Tablet Refills: 1 Commonly known as: SYNTHROID 50 mcg, Oral, BEFORE BREAKFAST lisinopriL 5 mg Tab Dose: 5 mg Qty: 30 Tablet Refills: 0 Commonly known as: PRINIVIL;ZESTril 5 mg, Oral, DAILY nalOXone 4 mg/actuation [place] Dose: 4 mg Qty: 1 Each Refills: 0 Commonly known as: NARCAN 4 mg, Nasal, PRN, Boyd the contents of one device (0.1mL) into one nostril upon signs of opioid overdose. Call 911. May repeat dose in other nostril if no response within 2-3 minutes. Nebulizer & Compressor For Neb Sujatha Dose: 1 Device Qty: 1 Device Refills: 0 1 Device, Misc.(Non-Drug; Combo Route), DAILY oxyCODONE-acetaminophen 10-325 mg Tab Dose: 1 Tablet Qty: 12 Tablet Refills: 0 Commonly known as: PERCOCET 1 Tablet, Oral, EVERY 6 HOURS PRN Oxygen and Equipment Dose: 1 Device Refills: 0 pantoprazole 40 mg Tbec Dose: 40 mg Qty: 90 Tablet Refills: 3 Commonly known as: PROTONIX 40 mg, Oral, DAILY rOPINIRole 1 mg Tab Dose: 1 mg Qty: 90 Tablet Refills: 1 Commonly known as: REQUIP 1 mg, Oral, NIGHTLY sotaloL 80 mg Tab Dose: 80 mg Qty: 200 Tablet Refills: 2 Commonly known as: BETAPACE 80 mg, Oral, 2 TIMES DAILY TRELEGY ELLIPTA 200-62.5-25 mcg Dsdv Dose: 1 Puff Qty: 60 Each Refills: 11 Comment: Patient out of medication @ home Generic drug: brqjosjoaby-vwbrzyqdh-hphkyofu 1 Puff, Inhalation, DAILY Where to Get Your Medications These medications were sent to [facility] [address] [address] Hours: Wednesday-Wednesday 8:00am - 6:30pm Wednesday-Wednesday 9:00am - 5:00pm predniSONE 20 mg Tab TRELEGY ELLIPTA 200-62.5-25 mcg Dsdv Condition at Discharge: good Disposition: Home Follow-up: Deion Quinn MD [address] [facility] [address] Follow up Prabhakar Garcia MD 05/07/2025 documented in this encounter Medications at Time of Discharge acetylcysteine (NAC) 600 mg Oral Capsule Take 1 Capsule by mouth 2 times daily. 60 Capsule 6 10/24/2024 albuterol (VENTOLIN HFA) 90 mcg/actuation Inhl HFA Aerosol InhalerIndication s:COPD exacerbation (HCC) Inhale 2 Puffs into the lungs every 4 hours as needed. for wheezing 18 Each 6 10/24/2024 apixaban (ELIQUIS) 5 mg Oral TabletIndications :Paroxysmal A-fib (HCC) Take 1 Tablet by mouth 2 times daily. 60 Tablet 5 01/11/2024 atorvastatin (LIPITOR) 40 mg Oral TabletIndications :Peripheral vascular disease,Coronary artery disease involving shoshone[place]paiute coronary artery of shoshone-paiute heart without angina pectoris Take 1 Tablet by mouth nightly. 90 Tablet 2 01/07/2024 guaiFENesin (MUCINEX) 600 mg Oral Tablet Extended Release 12hr Take 1 Tablet by mouth 2 times daily. 60 Each 10/24/2024 LEVOthyroxine (SYNTHROID) 50 mcg Oral TabletIndications :Hypothyroidism due to acquired atrophy of thyroid Take 1 Tablet by mouth before breakfast. 90 Tablet 1 01/07/2024 lisinopriL (PRINIVIL;ZESTRIL ) 5 mg Oral Tablet Take 1 Tablet by mouth daily. 30 Tablet 09/18/2024 Oxygen and Equipment MISCELLANEOU 1 Device by MISCELLANEOUS route once. rOPINIRole (REQUIP) 1 mg Oral TabletIndications :Restless legs syndrome (RLS) Take 1 Tablet by mouth nightly. 90 Tablet 1 01/07/2024 sotaloL (BETAPACE) 80 mg Oral TabletIndications :Paroxysmal A-fib (HCC) TAKE 1 TABLET BY MOUTH TWICE A DAY 200 Tablet 2 04/06/2024 fluticasone-umecl idin-vilanter (TRELEGY ELLIPTA) 200-62.5-25 mcg Inhl Disk with DeviceIndications :COPD, severe (HCC) Inhale 1 Puff into the lungs daily. 60 Each 11 05/07/2025 8:56 AM EDT 05/07/2025 gabapentin (NEURONTIN) 800 mg Oral Tablet Take 800 mg by mouth 3 times daily as needed. for pain nalOXone (NARCAN) 4 mg/actuation Nasl Boyd, Non-Aerosol 0.1 mL by Nasal route as needed for Opioid Reversal. Boyd the contents of one device (0.1mL) into one nostril upon signs of opioid overdose. Call 911. May repeat dose in other nostril if no response within 2-3 minutes. 1 Each 10/24/2024 Nebulizer & Compressor For [facility] DeviceIndications :Chronic obstructive pulmonary disease, unspecified COPD type (HCC) 1 Device by [facility]Non-Drug; Combo Route) route daily. 1 Device 12/03/2020 oxyCODONE-acetami nophen (PERCOCET) 10-325 mg Oral Tablet Take 1 Tablet by mouth every 6 hours as needed for Acute Pain > 3 Days Medically Necessary (R52). 12 Tablet 04/02/2025 pantoprazole (PROTONIX) 40 mg Oral Tablet, Delayed Release (E.C.)Indications :Gastroesophageal reflux disease without esophagitis Take 1 Tablet by mouth daily. 90 Tablet 3 01/07/2024 predniSONE (DELTASONE) 20 mg Oral Tablet Take 2 Tablets by mouth daily for 3 days, THEN 1.5 Tablets daily for 3 days, THEN 1 Tablet daily for 3 days, THEN one-half tablet daily for 3 days. 15 Tablet 05/07/2025 8:56 AM EDT 05/07/2025 05/19/20 documented as of this encounter Ordered Prescriptions Prescription Sig Dispense Quantity Refills Last Filled Start Date End Date fluticasone-umecli din-vilanter (TRELEGY ELLIPTA) 200-62.5-25 mcg Inhl Disk with DeviceIndications: COPD, severe (HCC) Inhale 1 Puff into the lungs daily. 60 Each 05/07/2025 8:56 AM EDT 05/07/2025 predniSONE (DELTASONE) 20 mg Oral Tablet Take 2 Tablets by mouth daily for 3 days, THEN 1.5 Tablets daily for 3 days, THEN 1 Tablet daily for 3 days, THEN one-half tablet daily for 3 days. 15 Tablet 05/07/2025 8:56 AM EDT 05/07/2025 fluticasone-umecli din-vilanter (TRELEGY ELLIPTA) 200-62.5-25 mcg Inhl Disk with DeviceIndications: COPD, severe (HCC) Inhale 1 Puff into the lungs daily. 60 Each 05/07/2025 documented in this encounter Discharge Disposition Disposition Code Departure Means Destination Comment s Home or Self [facility]ci documented in this encounter Progress Notes * Sandra Carvajal RN - 05/07/2025 9:32 AM EDT 05/07/25926 Ongoing Discharge Planning Evaluation Completed by CC/SW Yes Who does pt identify as their caregiver/support person who will be their active partner in the dc planning process Pt reports no caregiver/support person for dc planning process Anticipated post-acute care needs Home with OP Follow Up Observation Information Provided to Patient/Family Yes CC staff provided Non- Medicare Obs Notice OBS notice provided Patient provided verbal explanation of OBS status and opportunity to ask questions. Answered questions to best of ability Discussed discharge plans with Patient/Family/Caregiver/Support Person Yes, Discussed with patient [facility] in [facility];Yes, with doctor in attendance Patient's goals for recovery Return to Prior Level of Functioning Discharge to Home with Family Actual Discharge Plan 05/07/25 CC FINAL. D/C order noted in EPIC. Met with patient at the bedside. Patient is alert and oriented. Patient states that his ex- or daughter will transport him home. Patient is currently on oxygen at 2L. Patient states family will bring his portable tank. No further d/c needs identified. CC SIGNING OFF. Final Note Referral to SEP Care Management (SEP patients only) No Discharge Round Completed Yes Post Acute Form Assign to DC [employer] No Post Acute Form Completed No Care Coordination Discharge Ready? Yes Post Acute Provider Deion Quinn MD DME Arranged at Discharge None DME Assign to DC [employer] No DME completed by [employer] No Transportation at Discharge Personal vehicle Date Expected 05/07/25 Transportation Assign to [employer] No Confirmed Discharge Transportation Plan? Yes Transportation setup completed by [employer] No PASAR Completed Not Applicable Patient Aware and Agrees with DC Plan Yes Primary Caregiver/Legal Decision Maker aware and agree with Discharge Plan No Did patient request for family to not be notified Yes Does family and/or caregiver verbalize readiness, willingness, and ability to provide or support patient's self-management activities as appropriate? No, patient declined primary caregiver to be contacted MD Aware of Plan Yes RN Notified of Plan Yes * ROMINA STOVALL - 05/07/2025 9:08 AM EDT Discharge Medication Delivery Service [employer] nuclear plant instrument technician has delivered the following medications for Tolu Stanley: Rx#[id number]:PREDNISONE 20 MG TABLET--1 mg Rx#[id number]:TRELEGY ELLIPTA 200 MCG-62.5 MCG-25 MCG POWDER FOR INHALATION-1 Puff DAILY Date/Time of Delivery: 05/07/2025 9:08 AM Delivered to: patient in room Please contact [employer] nuclear plant instrument technician with any questions. Thanks! ROMINA STOVALL * Carie Monroe, JEFFERSON - 05/06/2025 2:11 PM EDT 05/06/25 1407 ED Screening Medical Record Reviewed Yes Does patient meet high risk triggers? Diagnosis of CHF/COPD/AMI/Pneumonia Who you interviewed In person interview with patient Mental Status Alert and oriented Activities of Daily Living Prior to Admission Independent with ADLS;Independent with Homemaking;Independent with mobility DME Used at Home Oxygen;Cane;Walker Is portable tank at hospital? [employer] DME Supplier/Provider Inderjit Patient's Living Arrangments Prior to Admission? Private Residence With Other(s) Private Residence With Other(s) Children;Family Members;Friends Support Systems Children;Family Members;Friends/Neighbors Is PCP listed on facesheet correct? Yes Anticipated post-acute care needs Home with OP Follow Up ED Screening Completed Initial screening complete, no post-acute needs identified at this time thatrequire a discharge planning evaluation. Team also has not received any request from patient, patient's sales representative education courses, physician, nor health care team for d/c planning eval Observation Information Provided to Patient/Family Yes CC staff provided Non- Medicare Obs Notice OBS notice provided Patient provided verbal explanation of OBS status and opportunity to ask questions. Answered questions to best of ability Actual Discharge Plan 05/06/2025 met with patient at bedside, patient states that he is currently living with his ex- and his dtr in [place] and is independent; no HH; patient uses oxygen 4 liters continuous at baseline and family will bring portable at discharge, patient uses a cane or walker asneeded for mobility; patient denies difficulty with affording or obtaining medications; patient states that family will provide transportation at discharge * Isabelle Bruce, RIGGING UP WORKER - 05/06/2025 12:55 PM EDT 05/06/25 1254 OTHER $ ED Assess and Treat Completed Respiratory Assessment Type Assess Only Pulse 83 Resp 18 Level of Consciousness Alert Respiratory Pattern Regular Chest Assessment Chest expansion symmetrical Breath Sounds Bilateral Diminished;Expiratory wheezes Oxygen Therapy/SPO2 O2 Device Nasal cannula O2 Flow Rate (L/min) 3 lpm SpO2 92 % HHN HHN Medications (patient stated he does not want another treatment at this time) documented in this encounter H&P Notes * Malcom Garcia MD - 05/06/2025 3:59 PM EDT Images from the original note were not included. SEP HOSPITALIST H&P Tolu Stanley; ; ADMIT DATE: 05/06/2025 12:13 PM CC: SOB HPI: Tolu Stanley is a 59 y.o. male with PMHx of severe COPD, chronic hypoxic resp failure (baseline 2-3L NC), CAD, hypothyroidism, paroxysmal afib on eliquis and sotalol, HTN/HLD presenting to hospital on 05/06/2025 for SOB. Reports increased SOB in the past few days has had to increase his O2 to around 4-5L NC recently. He was recently admitted until the end of Mar for COPDe. Reports coughing up some yellowish sputum. No blood. Ran out of trelegy 4-5 days ago. Started feeling bad maybe around that time. Coughing up yellow sputum also. No fevers or chills. Nobody else @ home has been sick. He quit smoking years ago but stillvapes. Labs independently reviewed - CBC with Hgb 12.3. plts 207. - BMP WNL. Cr 0.63 - LFTs WNL - Trop flat - BNP 205 - VBG 6. Imaging independently reviewed - CXR without any acute findings ED Course: COVID/FLU testing negative. Patient dyspneic on exertion in the ED. Case discussed with ED MD and decision to admit for further evaluation and management. ALLERGIES: Allergies[1] HOME MEDS: Prior to Admission medications Medication Sig Start Date End Date Taking? Authorizing Provider acetylcysteine (NAC) 600 mg Oral Capsule Take 1 Capsule by mouth 2 times daily. 10/24/24 Yes Jeremias Celaya MD albuterol (VENTOLIN HFA) 90 mcg/actuation Inhl HFA Aerosol Inhaler Inhale 2 Puffs into the lungs every 4 hours as needed. for wheezing 10/24/24 Yes Jeremias Celaya MD apixaban (ELIQUIS) 5 mg Oral Tablet Take 1 Tablet by mouth 2 times daily. 01/11/24 Yes Saida Marcano APRN atorvastatin (LIPITOR) 40 mg Oral Tablet Take 1 Tablet by mouth nightly. 01/07/24 Yes Saida Marcano APRN wqpeqadlcgk-fssazhlgo-vifqtmlu (TRELEGY ELLIPTA) 200-62.5-25 mcg Inhl Disk with Device Inhale 1 Puff into the lungs daily. 10/24/24 Yes Jeremias Celaya MD gabapentin (NEURONTIN) 800 mg Oral Tablet Take 800 mg by mouth 3 times daily as needed. for pain Yes Provider, Historical guaiFENesin (MUCINEX) 600 mg Oral Tablet Extended Release 12hr Take 1 Tablet by mouth 2 times daily. 10/24/24 Yes Jeremias Celaya MD LEVOthyroxine (SYNTHROID) 50 mcg Oral Tablet Take 1 Tablet by mouth before breakfast. 01/07/24 Yes Saida Marcano APRN lisinopriL (PRINIVIL;ZESTRIL) 5 mg Oral Tablet Take 1 Tablet by mouth daily. 09/18/24 Yes Medina Leon APRN oxyCODONE-acetaminophen (PERCOCET) 10-325 mg Oral Tablet Take 1 Tablet by mouth every 6 hours as needed for Acute Pain > 3 Days Medically Necessary (R52). 04/02/25 Yes Ankita Montoya MD pantoprazole (PROTONIX) 40 mg Oral Tablet, Delayed Release (E.C.) Take 1 Tablet by mouth daily. 01/07/24 Yes Saida Marcano APRN rOPINIRole (REQUIP) 1 mg Oral Tablet Take 1 Tablet by mouth nightly. 01/07/24 Yes Saida Marcano APRN sotaloL (BETAPACE) 80 mg Oral Tablet TAKE 1 TABLET BY MOUTH TWICE A DAY 04/06/24 Yes Saida Marcano APRN nalOXone (NARCAN) 4 mg/actuation Nasl Boyd, Non-Aerosol 0.1 mL by Nasal route as needed for OpioidReversal. Boyd the contents of one device (0.1mL) into one nostril upon signs of opioid overdose. Call 911. May repeat dose in other nostril if no response within 2-3 minutes. 10/24/24 Boris Celaya MD Nebulizer & Compressor For Neb Misc Device 1 Device by Misc.(Non-Drug; Combo Route) route daily. 12/03/20 Nima Callahan, Oxygen and Equipment MISCELLANEOU 1 Device by MISCELLANEOUS route once. Provider, Historical PMH: Past Medical History[2] SURGICAL HX: Surgical History[3] FHX: Family History[4] SOCIAL HX: Social History Tobacco Use Smoking status: Every Day Current packs/day: 0.25 Average packs/day: 3.8 packs/day for 44.7 years (171.6 ttl pk-yrs) Types: Cigarettes Start date: 08/09/1980 Passive exposure: Current Smokeless tobacco: Never Substance Use Topics Alcohol use: No Review of Systems Constitutional: Positive for malaise/fatigue. HENT: Negative. Eyes: Negative. Respiratory: Positive for cough, sputum production and shortness of breath. Cardiovascular: Negative. Gastrointestinal: Negative. Genitourinary: Negative. Musculoskeletal: Negative. Psychiatric/Behavioral: Negative. VS: Vitals: 05/06/25 1330 05/06/25 1400 05/06/25 1426 05/06/25 1451 BP: 105/75 Pulse: 86 86 81 Resp: 18 (!) 21 16 Temp: 98.4 ??F (36.9 ??C) TempSrc: Oral SpO2: 95% 98% 95% Weight: No intake or output data in the 24 hours ending 05/06/25 1559 Physical Exam Vitals and nursing note reviewed. Constitutional: General: He is not in acute distress. Appearance: Normal appearance. He is not ill-appearing or toxic-appearing. Cardiovascular: Rate and Rhythm: Normal rate and regular rhythm. Pulses: Normal pulses. Heart sounds: No murmur heard. No gallop. Pulmonary: Effort: Pulmonary effort is normal. Breath sounds: Wheezing present. Abdominal: General: Abdomen is flat. There is no distension. Palpations: Abdomen is soft. Tenderness: There is no abdominal tenderness. There is no guarding. Musculoskeletal: Right lower leg: No edema. Left lower leg: No edema. Neurological: General: No focal deficit present. Mental Status: He is alert. Psychiatric: Mood and Affect: Mood normal. Behavior: Behavior normal. Radiology/Procedures/Labs: Results for orders placed during the hospital encounter of 05/06/25 XR CHEST AP PORTABLE Narrative XR CHEST AP PORTABLE, 05/06/2025 12:35 PM CLINICAL HISTORY: -sob COMPARISON: March 30, 2025, 0046 hours PROCEDURE COMMENTS: AP portable technique. FINDINGS: Support devices: Left subclavian approach 2-lead pacemaker is stable. Heart and mediastinum are unchanged. Emphysematous changes are present. No new infiltrate, effusion, or pneumothorax. Impression No acute finding. - Note: Radiology results need to be interpreted within a comprehensive clinical context. If you have questions about the radiology report, please contact the office of the ordering clinician. Results for orders placed during the hospital encounter of 05/18/23 XR CHEST PA AND LATERAL Narrative PA AND LATERAL CHEST X-RAY, 05/18/2023 5:05 PM CLINICAL HISTORY: -SHORTNESS OF BREATH COMPARISON: 05/18/2023 PROCEDURE COMMENTS: Frontal and lateral views of the chest. FINDINGS: Stable left-sided dual-lead transvenous pacemaker. Cardiovascular structures are within normal limits. Trachea is midline. At least small bilateral pleural effusions with basilar predominant interstitial and hazy lung opacities. Findings may relate to pulmonary edema, infectious process, and/or atelectasis. Upper lungs are clear. No pneumothorax. No acute osseous abnormality. Impression At least small bilateral pleural effusions with basilar predominant interstitial and hazy lung opacities. Differential considerations include pulmonary edema, infectious process, and/or atelectasis. - Note: Radiology results need to be interpreted within a comprehensive clinical context. If you have questions about the radiology report, please contact the office of the ordering clinician. No results found for this or any previous visit. No results found for this or any previous visit. No results found for this or any previous visit. Pertinent imaging and laboratory studies were reviewed. ACTIVE PROBLEM LIST/ ASSESSMENT/ PLAN: Tolu Stanley is a 59 y.o. male with PMHx of severe COPD, chronic hypoxic resp failure (baseline2-3L NC), CAD, hypothyroidism, paroxysmal afib on eliquis and sotalol, HTN/HLD presenting to hospital on 05/06/2025 for SOB. Acute on Chronic Hypoxic Resp Failure COPDe - suspect in setting of running out of inhalers @ home and vaping - continue IV methylpred - continue duonebs / pulmicort - continue NAC - wean O2 as tolerated goal sats 88 to 92% in COPD Coronary Artery Disease - denies any CP at this time Afib - sotalol - eliquis HTN - lisinopril Tachybrady Syndrome s/p PPM Hypothyroidism - continue synthroid RLS - requip Chronic Back Pain - resumed his home percocet VTE Prophylaxis: Qualifying Pharmacologic Prophylaxis apixaban (ELIQUIS) tablet 5 mg 2 TIMES DAILY Code Status: FULL CODE > 75 minutes spent on evaluation and admission including but not limited to reviewing the patient's PMHx, Past Surgical Hx, Allergies, Family Hx, medication list, nurses's and specialists notes, labs and tests, old and recent medical records and time spent reviewing appropriate information and plans with the patient and/or specified family. Relevant information was discovered and affected the care of the patient. Prabhakar Garcia MD Internal Med 05/06/2025 [1] Allergies Allergen Reactions Amitriptyline Other (See Comments) Feels like bugs are crawling on him Benadryl [Diphenhydramine Hcl] Anaphylaxis and Other (See Comments) Passes out Doxepin Other (See Comments) Feels like bugs crawling on his skin Levaquin [Levofloxacin] Other (See Comments) [place] like throat closing Metoprolol Shortness Of Breath Penicillins Anaphylaxis Pt states Knocks me out Tolerates cephalosporins Wellbutrin [Bupropion Hcl] Nausea And Vomiting [2] Past Medical History: Diagnosis Date CAD (coronary artery disease) H/O heart artery stent Heart failure (HCC) 2023 Heartburn Hyperlipidemia Hypertension [facility] (myocardial infarction) ([facility]) Pacemaker Paroxysmal A-fib (HCC) 12/07/2016 Pneumonia severe copd Sinus node dysfunction ([facility]) Sleep apnea Tachycardia-bradycardia ([facility]) [3] Past Surgical History: Procedure Laterality Date APPENDECTOMY CARDIAC CATHETERIZATION 09/2016 2 stents placed and removed a clot PACEMAKER INSERTION Left 12/09/2016 [employer]tronic, dual chamber pacemaker by Dr. Resendez [4] Family History Problem Relation Age of Onset Cancer Mother Heart Disease Mother Cancer Father Heart Disease Father Cancer Sister tumor in the brain Heart Disease Sister documented in this encounter ED Notes * Bertha Alston RN - 05/06/2025 1:26 PM EDT Ambulated to doorway with oxygen and assist of nurse. Oxygen maintained at 92% but pt had to pause at the doorway to catch his breath. MD aware. * Leonardo Alcazar MD - 05/06/2025 12:12 PM EDT ED Attending Note Shortness of Breath (Pt presents per ems from private residence. Pt c/o sob. Duoneb, EKG, iv, zofran 4mg, solumedrol per ems, ) Interval History: Tolu Stanley is a 59 y.o. male presenting to the ED for evaluation of shortness of breath. Patient has a history of COPD. He does wear oxygen daily. He states he only wears around 2-3 liters daily. He states over the last several days he had increasing shortness of breath. He states that he hasbeen increasing his oxygen to 4-5 at home. Called EMS today as he was having difficulty breathing. Was given DuoNeb, Solu-Medrol, Zofran per EMS. Is feeling better at this time. Does state that he still has some mild shortness of breath. Denies any pain at this time including chest pain, abdominal pain. No nausea or vomiting at this time. No reported fevers at home. Past Medical History[1] Surgical History[2] Social History Socioeconomic History Marital status: Spouse name: Not on file Number of children: Not on file Years of education: Not on file Highest education level: Not on file Occupational History Not on file Tobacco Use Smoking status: Every Day Current packs/day: 0.25 Average packs/day: 3.8 packs/day for 44.7 years (171.6 ttl pk-yrs) Types: Cigarettes Start date: 08/09/1980 Passive exposure: Current Smokeless tobacco: Never Vaping Use Vaping status: Never Used Substance and Sexual Activity Alcohol use: No Drug use: No Sexual activity: Yes Partners: Female Other Topics Concern Not on file Social History Narrative Merged History Encounter Social Drivers of Health Financial Resource Strain: Low Risk (03/30/2025) Overall Financial Resource Strain (CARDIA) Difficulty of Paying Living Expenses: Not hard at all Food Insecurity: No Food Insecurity (03/30/2025) Hunger Vital Sign Worried About Running Out of Food in the Last Year: Never true Ran Out of Food in the Last Year: Never true Transportation Needs: No Transportation Needs (03/30/2025) [facility] IP Transportation In the past 12 months, has lack of reliable transportation kept you from medical appointments, meetings, work or from getting things needed for daily living?: No Physical Activity: Inactive (03/30/2025) Exercise Vital Sign Days of Exercise per Week: 0 days Minutes of Exercise per Session: 0 min Stress: No Stress Concern Present (03/30/2025) [place] Citizen [employer] - Occupational Stress Questionnaire Feeling of Stress : Not at all Social Connections: Unknown (05/17/2023) Received from [facility] Family and Community Support Help with Day-to-Day Activities: Not on file Lonely or Isolated: Not on file Intimate Partner Violence: Unknown (05/17/2023) Received from [facility] Abuse Screen Unsafe at Home or Work/School: Not on file Feels Threatened by Someone?: Not on file Does Anyone Keep You from Contacting Others or Doint Things Outside the Home?: Not on file Physical Sign of Abuse Present: Not on file Housing Stability: Low Risk (03/03/2024) Housing Stability Vital Sign Unable to Pay for Housing in the Last Year: No Number of Times Moved in the Last Year: 1 Homeless in the Last Year: No Review of Systems: (+) positive All systems negative except as marked. Constitutional: Negative for fever HENT: Negative for sore throat. Eyes: Negative for visual changes Respiratory:+SOB, cough Cardiovascular: Negative for chest pain, palpitations Gastrointestinal: Negative for abdominal pain, nausea, vomiting, diarrhea Genitourinary: Negative for difficulty urinating, hematuria, dysuria Musculoskeletal: Negative for neck pain, back pain, myalgia Skin: Negative for rash, itching Neurological: Negative for TILLEY, dizziness, weakness, numbness, tingling Psychiatric: Negative for SI, hallucinations, anxiety Vitals: 05/06/25 1330 05/06/25 1400 05/06/25 1426 05/06/25 1451 BP: 105/75 Pulse: 86 86 81 Resp: 18 (!) 21 16 Temp: 98.4 ??F (36.9 ??C) TempSrc: Oral SpO2: 95% 98% 95% Weight: Exam: Constitutional: well developed, well nourished, no acute distress HENT: normocephalic, atraumatic, moist oral mucosa, conjunctiva normal Eyes: PERRL, EOMi Neck: supple, normal ROM Cardiovascular: regular rate and rhythm, no murmur Respiratory: Mild wheezing Abdomen: soft, non-tender, non-distended Musculoskeletal: no edema or deformities Skin: warm, dry, no lesions Neurological: awake, alert&Ox4, moving all extremities, no focal motor/sensation deficits. Psychiatric: mood and affect normal Medical Decision Makin. Patient is a 59-year-old male presents to the emergency room for evaluation of shortness of breath. At this time patient presents for evaluation of COPD. Patient has been admitted multiple times in the last few months for COPD exacerbations. He is back on 3 L at this time and satting in the mid 90s. Seems that this is his baseline. He had received Solu-Medrol as well as breathing treatments prior to arrival. Workup is fairly reassuring at this time. He does have an elevated CO2 but it is well compensated. Troponin is negative and COVID and flu testing is negative. Chest x-ray is clear. On repeat assessment the patient ambulated but was very dyspneic on exertion. Will mid to the hospital f or further breathing treatments and steroid use. Discussed with Dr. Garcia who agrees to admission. Results: Labs Reviewed CBC WITH DIFF - Abnormal; Notable for the following components: Result Value RBC 4.29 (*) Hgb 12.3 (*) Hct 38.1 (*) All other components within normal limits COMPREHENSIVE METABOLIC PANEL - Abnormal; Notable for the following components: Chloride 96 (*) Total CO2 31 (*) Calcium 8.5 (*) Glucose Lvl 103 (*) Creatinine 0.63 (*) Albumin 3.0 (*) All other components within normal limits BLOOD GAS, VENOUS - Abnormal; Notable for the following components: pCO2 Venous 62 (*) pO2 Venous 53 (*) Hco3 Venous 35.0 (*) CO2 Total Abhi 32 (*) O2 Sat. Venous 85.0 (*) All other components within normal limits [id number] A/B - Normal TROPONIN-T HIGH SENSITIVITY BASELINE W/ REFLEX - Normal Narrative: Ingestion of mina doses of biotin (>5 mg/day) taken within 8 hours of drawing blood sample can interfere with this immunoassay test. NT PROBNP - Normal Narrative: An NT pro-BNP level less than 300 pg/mL in any patient, regardless of age, effectively rules out acute CHF with a 99% negative predictive value. Ingestion of mina doses of biotin (>5 mg/day) taken within 8 hours of drawing blood sample can interfere with this immunoassay test. TROPONIN-T HIGH SENSITIVITY 2HR - Normal Narrative: Ingestion of mina doses of biotin (>5 mg/day) taken within 8 hours of drawing blood sample can interfere with this immunoassay test. ECG AND WAVEFORMS - TELEMETRY Narrative: See Clinical Report link for waveform capture ECG AND WAVEFORMS - TELEMETRY Narrative: (DT)NEW ADMIT ND 0.15 QRS 0.07 RR 0.79 QT 0.41 QTc 0.46 See Clinical Report link for waveform capture XR CHEST AP PORTABLE Final Result No acute finding. - Note: Radiology results need to be interpreted within a comprehensive clinical context. If you have questions about the radiology report, please contact the office of the ordering clinician. EK EKG [address] [facility] Test Date: 2025-05-06 Pat Name: TOLU STANLEY Department: DEPID Room: 08 Gender: Male Staff Veterinarian: As : 1965 Requested By: [facility] Order Number: [id number] Reading MD: Tay Amezcua MD Measurements Intervals [place] Rate: 63 P: 120 ND: 141 QRS: 57 QRSD: 77 T: 74 QT: 419 QTc: 431 Interpretive Statements ELECTRONIC ATRIAL PACEMAKER ABNORMAL RHYTHM ECG Electronically Signed On 05-06-2025 13:41:30 EDT by Tay Amezcua MD ED course: The patient's Oxygen Saturation Monitor was interpreted by nv. The reading was 95%. The patient wason room air at the time of the reading. This is interpreted as normal. ED Course as of 05/06/25 1228 Leonardo Alcazar's Documentation Sun May 06, [id number] EKG Interpretation Interpreted by Leonardo Alcazar MD: Date: 05/06/25 Time: 1222 R&R: Paced rhythm with a ventricular rate of 63 bpm Admit Orders and Medicine administered during this encounter: Orders Placed This Encounter Procedures COVID-19/Flu A/Flu B XR CHEST AP PORTABLE CBC with Auto Diff Comprehensive Metabolic Panel Troponin-T High Sensitivity Baseline w/ Reflex NT ProBNP Blood Gas, Venous Contact and Airborne isolation Coronavirus Saline lock IV - initiation/placement order Medications sodium chloride 0.9% syringe 5-10 mL (has no administration in time range) sodium chloride 0.9% IV line flush 50 mL (has no administration in time range) Clinical Impression: 1. COPD exacerbation ([facility]) Scripts: Disposition: Admit Follow-up: [1] Past Medical History: Diagnosis Date CAD (coronary artery disease) H/O heart artery stent Heart failure ([facility]) 2023 Heartburn Hyperlipidemia Hypertension [facility] (myocardial infarction) ([facility]) Pacemaker Paroxysmal A-fib ([facility]) 12/07/2016 Pneumonia severe copd Sinus node dysfunction (HCC) Sleep apnea Tachycardia-bradycardia (HCC) [2] Past Surgical History: Procedure Laterality Date APPENDECTOMY CARDIAC CATHETERIZATION 09/2016 2 stents placed and removed a clot PACEMAKER INSERTION Left 12/09/2016 Medtronic, dual chamber pacemaker by Leonardo Wheatley MD 05/06/25 1548 documented in this encounter Miscellaneous Notes * Utilization Review Notes - Yuliet Dupree RN - 05/07/2025 10:14 AM EDT ADMIT TO OBSERVATION 05/06 OBS ORDER ON CHART ADMIT TO TELEMETRY UNIT COPD EXACERBATION 93% O2 2LNC IV SOLUMEDROL Q8 DC ORDER ON CHART * RT Oxygen Plan of Care Note - Thom Key RRT - 05/06/2025 8:06 PM EDT Images from the original note were not included. May 06, 2025 Oxygen Therapy: Maintain Oxygen Sat greater than or equal to: O2 Device: Nasal cannula O2 Flow Rate (L/min): 3 lpm SpO2: 96 % Will continue to wean oxygen as tolerated to maintain titration goal. Thom eKy RRT * Utilization Review Notes - Ade Espinoza RN - 05/06/2025 1:46 PM EDT Admit as OBS 05/06/25 Admit review Pulmonary monitor COPD exacerbation 05/06/25 1330 86 18 105/75 95% 05/06/25 1254 83 18 92% 3LNC Venous pH 7.37 pC02 62 p02 53 HC03 35 CXR no acute finding Duo-neb QID documented in this encounter Plan of Treatment Pending Results Name Type Priority Associated Diagnoses Date /Time ECG AND WAVEFORMS - TELEMETRY Point of Care Testing Routine 05/07/2025 7:16 AM EDT documented as of this encounter Goals Goal Patient Goal Type Associated Problems Recent Progress Patient-Stated? Author Blood Pressure < 140/90 Blood Pressure 95/50(2024 8:36 AM EDT) No Carmela Pastor LPN Eat better, exercise, reach an ideal body weight General No Romina Becker CMA Pt will recognize symptoms of COPD exacerbation and know when to call Provider. General On track(2022 9:35 AM EST) No Christina Short RN Patient will avoid using aersol sprays such as air freshners and spray deoderant near oxygen unit due to flammibity and his safety. General On track(2021 3:23 PM EDT) No Jessika Fuentes RN Patient will utilize daily Trelegy inhaler and Albuterol rescue inhaler as needed throughout the day. General On track(2022 1:07 PM EDT) No Christina Short RN Patient will have all medications available for administration through next RN Light Out Examiner visit. General On track(2022 1:07 PM EDT) No Betty Stanley RN patient wants to get stronger and build stamina to be able to ambulate without a wheelchair. General Yes Yu Coates, JEFFERSON Patient reports he wants to do better and get well. General On track(2023 3:30 PM EDT) Yes Bertha Tesfaye, JEFFERSON Patient will wear Bipap for atleast four hours nightly General Not on track(2023 12:48 PM EDT) Yes Leida Rockwell Patient will monitor oxygen saturation once every hour to ensure saturation is staying between 88-92%. General Not on track(2023 12:45 PM EDT) Yes Locker Leida L Stay Tobacco Free Lifestyle Not on track(2021 1:53 PM EDT) No Romina Becker CMA documented as of this encounter Procedures Procedure Name Priority Date/Time Associated Diagnosis Comments SCANNED EKG 05/07/2025 11:15 AM EDT ECG AND WAVEFORMS - TELEMETRY Routine 05/07/2025 7:16 AM EDT BASIC METABOLIC PANEL TIFFANY 05/07/2025 5:31 AM EDT ECG AND WAVEFORMS - TELEMETRY Routine 05/06/2025 7:10 PM EDT ECG AND WAVEFORMS - TELEMETRY Routine 05/06/2025 3:33 PM EDT TROPONIN-T HIGH SENSITIVITY 2HR Timed 05/06/2025 2:03 PM EDT ADMIT Routine 05/06/2025 1:39 PM EDT ECG AND WAVEFORMS - TELEMETRY Routine 05/06/2025 12:41 PM EDT XR CHEST AP PORTABLE STAT 05/06/2025 12:35 PM EDT [id number] A/B Routine 05/06/2025 12: 28 PM EDT TROPONIN-T HIGH SENSITIVITY BASELINE W/ REFLEX STAT 05/06/2025 12:25 PM EDT BLOOD GAS, VENOUS STAT 05/06/2025 12: 25 PM EDT CBC WITH DIFF STAT 05/06/2025 12:25 PM EDT NT PROBNP STAT 05/06/2025 12:25 PM EDT MAGNESIUM LEVEL Add-On 05/06/2025 12:25 PM EDT COMPREHENSIVE METABOLIC PANEL STAT 05/06/2025 12:25 PM EDT EK EKG 12 LEAD STAT 05/06/2025 12:14 PM EDT documented in this encounter Results * SCANNED EKG (05/07/2025 11:15 AM EDT) Anatomical Region Laterality Modality Other 05/07/2025 11:1 5 AM EDT us Unknown Provider IMG ECG ORDERABLES Final Result * (ABNORMAL) BASIC METABOLIC PANEL (05/07/2025 5:31 AM EDT) Sodium 136 136 - 145 mmol/L 05/07/2025 6:21 AM EDT [facility] Potassium 4.2 3.5 - 5.0 mmol/L 05/07/2025 6:21 AM EDT [facility] Chloride 93(L) 98 - 107 mmol/L 05/07/2025 6:21 AM EDT [facility] Total CO2 31(H) 22 - 29 mmol/L 05/07/2025 6:21 AM EDT [facility] Anion Gap 12 7 - 16 mmol/L 05/07/2025 6:21 AM EDT [facility] Calcium 8.7 8.6 - 10.4 mg/dL 05/07/2025 6:21 AM EDT [facility] Glucose Lvl 164(H) 70 - 99 mg/dL 05/07/2025 6:21 AM EDT [facility] BUN 13 6 - 20 mg/dL 05/07/2025 6:21 AM EDT [facility] Creatinine 0.60(L) 0.67 - 1.30 mg/dL 05/07/2025 6:21 AM EDT [facility] eGFR (CKD-EPIcr 2020) 112 >=60 mL/min/1.7 3 m2 05/07/2025 6:21 AM EDT [facility] Comment:Estimated GFR was ca lculated using the CKD-EPIcr (2020) equation refit without race. The equation is recommended by the National Kidney Foundation - [place] Society of Nephrology Task Force. Blood VENOUS BLOOD / Unknown Venipuncture / Unknown 05/07/2025 5:31 AM EDT 05/07/2025 5:53 AM EDT us Malcom Garcia MD CHEMISTRY ORDERABLES Final Result Performing Organization Address City/[facility]/ZIP Co de Phone Number [facility] [place] [facility] [address], [place] [address] * ECG AND WAVEFORMS - TELEMETRY (05/06/2025 7:10 PM EDT) ECG INTERPRET NSR [facility] 05/06/2025 7:10 PM EDT Narrative [facility] - 05/06/2025 7:15 PM EDT ROUTINE (MS) ND 0.17 QRS 0.08 RR 0.76 QT 0.40 QTc 0.46 See Clinical Report link for waveform capture us Unknown Provider POINT OF CARE CARDIOLOGY Final Result Performing Organization Address [facility] Co de Phone Number [facility] [address] [place] [address] * ECG AND WAVEFORMS - TELEMETRY (05/06/2025 3:33 PM EDT) [facility] ECG INTERPRET NSR [facility] 05/06/2025 3:33 PM EDT Narrative [facility] - 05/06/2025 3:44 PM EDT (DT)NEW ADMIT ND 0.15 QRS 0.07 RR 0.79 QT 0.41 QTc 0.46 See Clinical Report link for waveform capture us Unknown Provider POINT OF CARE CARDIOLOGY Final Result Performing Organization Address [facility]/ZIP Co de Phone Number [facility] [address] [place] [address] * TROPONIN-T HIGH SENSITIVITY 2HR (05/06/2025 2:03 PM EDT) [facility] [id number] 2HR 17 <22 ng/L 05/06/2025 2:27 PM EDT [facility] hs-cTnT 2Hr Delta from Baseline -2 <4 ng/L 05/06/2025 2:27 PM EDT [facility] Blood VENOUS BLOOD / Unknown Venipuncture / Unknown 05/06/2025 2:03 PM EDT 05/06/2025 2:06 PM EDT Narrative [facility] - 05/06/2025 2:27 PM EDT Ingestion of mina doses of biotin (>5 mg/day) taken within 8 hours of drawing blood sample can interfere with this immunoassay test. us Leonardo Alcazar MD CHEMISTRY ORDERABLES Final Resul t Performing Organization Address City/[facility]/ZIP Co de Phone Number [facility] [address] [place] [address] * ECG AND WAVEFORMS - TELEMETRY (05/06/2025 12:41 PM EDT) ECG INTERPRET Atrial Paced [facility] 05/06/2025 12:4 1 PM EDT Narrative [facility] - 05/06/2025 12:41 PM EDT See Clinical Report link for waveform capture us Unknown Provider POINT OF CARE CARDIOLOGY Final Result Performing Organization Address [facility] Co de Phone Number [facility] [address] [place] [address] * XR CHEST AP PORTABLE (05/06/2025 12:35 PM EDT) Anatomical Region Laterality Modality Chest Radiographic Josefa ging 05/06/2025 12:3 5 PM EDT Impressions 05/06/2025 12:47 PM EDT No acute finding. - Note: Radiology results need to be interpreted within a comprehensive clinical context. If you have questions about the radiology report, please contact the office of the ordering clinician. Narrative 05/06/2025 12:47 PM EDT XR CHEST AP PORTABLE, 05/06/2025 12:35 PM CLINICAL HISTORY: -sob COMPARISON: March 30, 2025, 0046 hours PROCEDURE COMMENTS: AP portable technique. FINDINGS: Support devices: Left subclavian approach 2-lead pacemaker is stable. Heart and mediastinum are unchanged. Emphysematous changes are present. No new infiltrate, effusion, or pneumothorax. Procedure Note Lux Zarate MD - 05/06/2025 XR CHEST AP PORTABLE, 05/06/2025 12:35 PM CLINICAL HISTORY: -sob COMPARISON: March 30, 2025, 0046 hours PROCEDURE COMMENTS: AP portable technique. FINDINGS: Support devices: Left subclavian approach 2-lead pacemaker is stable. Heart and mediastinum are unchanged. Emphysematous changes are present. No new infiltrate, effusion, or pneumothorax. IMPRESSION: No acute finding. - Note: Radiology results need to be interpreted within a comprehensiveclinical context. If you have questions about the radiology report, please contactthe office of the ordering clinician. Leonardo Alcazar MD IMG DIAGNOSTIC IMAGING ORDERABLE S Final Result * [id number] A/B (05/06/2025 12:28 PM EDT) [facility] CORONAVIRUS [id number] Not Detected Not Detected 05/06/2025 12:51 PM EDT [facility] Influenza A DNA Not Detected Not Detected 05/06/2025 12:51 PM EDT [facility] Influenza B DNA Not Detected Not Detected 05/06/2025 12:51 PM EDT [facility] Swab BOTH ANTERIOR NARES / Unknown 05/06/2025 12:28 PM EDT 05/06/2025 12:31 PM EDT Leonardo Alcazar MD MICROBIOLOGY - GENERAL ORDERABLE S Final Result Performing Organization Address [facility] [place] [address] * MAGNESIUM LEVEL (05/06/2025 12:25 PM EDT) [facility] Magnesium 1.9 1.6 - 2.4 mg/dL 05/06/2025 4:27 PM EDT [facility] Blood VENOUS BLOOD / Unknown Venipuncture / Unknown 05/06/2025 12:25 PM EDT 05/06/2025 12:30 PM EDT Malcom Garcia MD CHEMISTRY ORDERABLES Final Result Performing Organization Address [facility] Co de Phone Number [facility] [address] [place] [address] * (ABNORMAL) BLOOD GAS, VENOUS (05/06/2025 12:25 PM EDT) pH Venous 7.37 7.32 - 7.42 pH 05/06/2025 12:35 PM EDT [facility] pCO2 Venous 62(H) 41 - 51 mmHg 05/06/2025 12:35 PM EDT [facility] pO2 Venous 53(H) 25 - 40 mmHg 05/06/2025 12:35 PM EDT [facility] Comment:Interpret with cauti on. Not recommended to evaluate patient's oxygenation status. Base Excess Abhi 8.2 mmol/L 12:35 PM EDT [facility] Hco3 Venous 35.0(H) 24.0 - 28.0 mmol/L 05/06/2025 12:35 PM EDT [facility] CO2 Total Abhi 32(H) 25 - 29 mmol/L 05/06/2025 12:35 PM EDT [facility] O2 Sat. Venous 85.0(H) 40.0 - 70.0 % 05/06/2025 12:35 PM EDT [facility] Inspired O2 3L 05/06/2025 12:35 PM EDT [facility] Blood VENOUS BLOOD / Unknown Venipuncture / Unknown 05/06/2025 12:25 PM EDT 05/06/2025 12:31 PM EDT us Leonardo Alcazar MD CHEMISTRY ORDERABLES Final Resul t [facility] [address] [facility] , [place] [address] * NT PROBNP (05/06/2025 12:25 PM EDT) NT Pro-BNP 205 <=229 pg/mL 05/06/2025 12:50 PM EDT [facility] Blood VENOUS BLOOD / Unknown Venipuncture / Unknown 05/06/2025 12:25 PM EDT 05/06/2025 12:30 PM EDT Narrative [facility] - 05/06/2025 12:50 PM EDT An NT pro-BNP level less than 300 pg/mL in any patient, regardless of age, effectively rules out acute CHF with a 99% negative predictive value. Ingestion of mina doses of biotin (>5 mg/day) taken within 8 hours of drawing blood sample can interfere with this immunoassay test. Leonardo Alcazar MD CHEMISTRY ORDERABLES Final Resul t Performing Organization Address [facility] Co de Phone Number [address] [address] * TROPONIN-T HIGH SENSITIVITY BASELINE W/ REFLEX (05/06/2025 12:25 PM EDT) Pathologist [facility] tn-bLybvgzox-T 19 <22 ng/L 05/06/2025 12:50 PM EDT [facility] Blood VENOUS BLOOD / Unknown Venipuncture / Unknown 05/06/2025 12:25 PM EDT 05/06/2025 12:30 PM EDT Narrative [facility] - 05/06/2025 12:50 PM EDT Ingestion of mina doses of biotin (>5 mg/day) taken within 8 hours of drawing blood sample can interfere with this immunoassay test. Leonardo Alcazar MD CHEMISTRY ORDERABLES Final Resul t Performing Organization Address [facility] Co de Phone Number [address] [address] * (ABNORMAL) COMPREHENSIVE METABOLIC PANEL (05/06/2025 12:25 PM EDT) Sodium 137 136 - 145 mmol/L 05/06/2025 12:50 PM EDT [facility] Potassium 4.3 3.5 - 5.0 mmol/L 05/06/2025 12:50 PM EDT [facility] Chloride 96(L) 98 - 107 mmol/L 05/06/2025 12:50 PM EDT [facility] Total CO2 31(H) 22 - 29 mmol/L 05/06/2025 12:50 PM EDT [facility] Anion Gap 10 7 - 16 mmol/L 05/06/2025 12:50 PM EDT [facility] Calcium 8.5(L) 8.6 - 10.4 mg/dL 05/06/2025 12:50 PM EDT [facility] Glucose Lvl 103(H) 70 - 99 mg/dL 05/06/2025 12:50 PM EDT [facility] BUN 8 6 - 20 mg/dL 05/06/2025 12:50 PM EDT [facility] Creatinine 0.63(L) 0.67 - 1.30 mg/dL 05/06/2025 12:50 PM EDT [facility] Albumin 3.0(L) 3.5 - 5.2 gm/dL 05/06/2025 12:50 PM EDT [facility] Total Protein 6.4 6.4 - 8.3 gm/dL 05/06/2025 12:50 PM EDT [facility] Bili Total 0.4 0.2 - 1.4 mg/dL 05/06/2025 12:50 PM EDT [facility] ALT <5 <=41 U/L 05/06/2025 12:50 PM EDT [facility] AST 8 <=40 U/L 05/06/2025 12:50 PM EDT [facility] Alk Phos 110 40 - 129 U/L 05/06/2025 12:50 PM EDT [facility] eGFR (CKD-EPIcr 2020) 110 >=60 mL/min/1.7 3 m2 05/06/2025 12:50 PM EDT [facility] Comment:Estimated GFR was ca lculated using the CKD-EPIcr (2020) equation refit without race. The equation is recommended by the National Kid[employer] - [employer] of Nephrology Task Force. Blood VENOUS BLOOD / Unknown Venipuncture / Unknown 05/06/2025 12:25 PM EDT 05/06/2025 12:30 PM EDT us Leonardo Alcazar MD CHEMISTRY ORDERABLES Final Resul t [facility] [address] [place] [address] * (ABNORMAL) CBC WITH DIFF (05/06/2025 12:25 PM EDT) WBC 8.4 3.7 - 10.3 x10(3)/mcL 05/06/2025 12:33 PM EDT [facility] RBC 4.29(L) 4.60 - 6.10 x10(6)/mcL 05/06/2025 12:33 PM EDT [facility] Hgb 12.3(L) 13.7 - 17.5 g/dL 05/06/2025 12:33 PM EDT [facility] Hct 38.1(L) 40.0 - 51.0 % 05/06/2025 12:33 PM EDT [facility] MCV 88.8 80.0 - 100.0 fL 05/06/2025 12:33 PM EDT [facility] MCH 28.7 26.0 - 34.0 pg 05/06/2025 12:33 PM EDT [facility] MCHC 32.3 30.7 - 35.5 g/dL 05/06/2025 12:33 PM EDT [facility] RDW 11.9 <=14.9 % 05/06/2025 12:33 PM EDT [facility] Platelet 207 155 - 369 x10(3)/mcL 05/06/2025 12:33 PM EDT [facility] MPV 9.1 8.8 - 12.5 fL 05/06/2025 12:33 PM EDT [facility] Neut Percent 71.4 % 05/06/2025 12:33 PM EDT [facility] Comment:Neutrophils equals s egs plus bands Imm Gran% 0.2 % 05/06/2025 12:33 PM EDT [facility] Comment:Automated count of m etamyelocytes, myelocytes and promyelocytes. Lymph Percent 20.9 % 05/06/2025 12:33 PM EDT [facility] [place] Percent 5.7 % 05/06/2025 12:33 PM EDT [facility] Eos Percent 1.3 % 05/06/2025 12:33 PM EDT [facility] Baso Percent 0.5 % 05/06/2025 12:33 PM EDT [facility] Neut # 6.0 1.6 - 6.1 x10(3)/[facility] 05/06/2025 12:33 PM EDT [facility] Comment:Neutrophils equals s egs plus bands IMMGRAN# 0.0 0.0 - 0.1 x10(3)/[facility] 05/06/2025 12:33 PM EDT [facility] Comment:Automated count of m etamyelocytes, myelocytes and promyelocytes. An absolute IG <0.1 is reported as 0.0. Lymph # 1.8 1.2 - 3.9 x10(3)/[facility] 05/06/2025 12:33 PM EDT [facility] [place] # 0.5 0.3 - 0.9 x10(3)/[facility] 05/06/2025 12:33 PM EDT [facility] Eos# 0.1 0.0 - 0.5 x10(3)/[facility] 05/06/2025 12:33 PM EDT [facility] Baso # 0.0 0.0 - 0.1 x10(3)/[facility] 05/06/2025 12:33 PM EDT [facility] Blood VENOUS BLOOD / Unknown Venipuncture / Unknown 05/06/2025 12:25 PM EDT 05/06/2025 12:30 PM EDT us Leonardo Alcazar MD HEMATOLOGY ORDERABLES Final Resu lt [facility] [address] [place] [id number] * EK EKG 12 LEAD (05/06/2025 12:14 PM EDT) Anatomical Region Laterality Modality Electrocardiogra phy 05/06/2025 12:2 2 PM EDT Impressions 05/06/2025 1:41 PM EDT [facility] Test Date: 2025-05-06 Pat Name: TOLU STANLEY Department: DEPID Room: 08 Gender: Male Staff Veterinarian: As : 1965 Requested By: [facility] Order Number: [id number] Reading MD: Tay Amezcua MD Measurements Intervals [place] Rate: 63 P: 120 ND: 141 QRS: 57 QRSD: 77 T: 74 QT: 419 QTc: 431 Interpretive Statements ELECTRONIC ATRIAL PACEMAKER ABNORMAL RHYTHM ECG Electronically Signed On 05-06-2025 13:41:30 EDT by Tay Amezcua MD Narrative Procedure Note Tay Amezcua MD - 05/06/[address] [facility] Test Date: 2025-05-06 Pat Name: TOLU STANLEY Department: DEPID Room: 08 Gender: Male Staff Veterinarian: As : 1965 Requested By: [facility] Order Number: [id number] Reading MD: Tay Amezcua MD Measurements Intervals [place] Rate: 63 P: 120 ND: 141 QRS: 57 QRSD: 77 T: 74 QT: 419 QTc: 431 Interpretive Statements ELECTRONIC ATRIAL PACEMAKER ABNORMAL RHYTHM ECG Electronically Signed On 05-06-2025 13:41:30 EDT by Tay Amezcua MD Leonardo Alcazar MD IMG ECG ORDERABLES Final Result documented in this encounter Visit Diagnoses Diagnosis COPD exacerbation (HCC)- Primary Obstructive chronic bronchitis with exacerbation COPD exacerbation (HCC) Obstructive chronic bronchitis with exacerbation COPD, severe (HCC) Chronic airway obstruction, not elsewhere classified Tachycardia-bradycardia (HCC) Sinoatrial node dysfunction Sinus node dysfunction (HCC) Sinoatrial node dysfunction Paroxysmal A-fib (HCC) Atrial fibrillation Narcotic dependence (HCC) Unspecified drug dependence, unspecified COPD, severe (HCC) Chronic airway obstruction, not elsewhere classified Acute on chronic hypoxic respiratory failure (HCC) documented in this encounter Admitting Diagnoses Diagnosis COPD exacerbation (HCC) Obstructive chronic bronchitis with exacerbation documented in this encounter Administered Medications Inactive Administered Medications - up to 1 most recent administrations Medication Order MAR Action Action Date Dose Rate Site acetaminophen (TYLENOL) tablet 650 mg 650 mg, Oral, EVERY 4 HOURS PRN, Starting on 05/06/25 at 1349, Until 05/07/25 at 1432, Pain, Fever, Maximum adult dose of acetaminophen is 4000 mg from all sources in 24 hours. acetylcysteine (NAC) capsule 600 mg 600 mg, Oral, 2 TIMES DAILY, First dose on Wed05/06/25 at 2100, Until Discontinued Given 05/07/2025 8:44 AM EDT 600 mg albuterol (PROVENTIL) nebulizer solution 2.5 mg 2.5 mg, Nebulization, PRN, Starting on Wed05/06/25 at 1446, Until Wed05/07/25 at 1432, Wheezing, Shortness of Breath albuterol-ipratropium (DUO-NEB) 3 mg-0.5 mg(2.5 mg base)/3 mL nebulizer solution 3 mL 3 mL, Nebulization, 4 TIMES DAILY EVENLY DISTRIBUTED (RESP CARE) (4 times per day), First dose on Wed05/06/25 at 1630, Until Discontinued, Administered by Respiratory Therapy. Given 05/07/2025 8:36 AM EDT 3 mL apixaban (ELIQUIS) tablet 5 mg 5 mg, Oral, 2 TIMES DAILY, First dose on Wed05/06/25 at 2100, Until Discontinued Given 05/07/2025 8:44 AM EDT 5 mg atorvastatin (LIPITOR) tablet 40 mg 40 mg, Oral, NIGHTLY, First dose on Wed05/06/25 at 2100, Until Discontinued Given 05/06/2025 9:13 PM EDT 40 mg budesonide (PULMICORT) 0.5 mg/2 mL nebulizer suspension 500 mcg 500 mcg, Nebulization, 2 TIMES DAILY (RESP CARE), First dose on Wed05/06/25 at 2000, Until Discontinued, Protect from light. Given 05/07/2025 8:36 AM EDT 500 mcg guaiFENesin (MUCINEX) 12 hr tablet 600 mg 600 mg, Oral, 2 TIMES DAILY, First dose on Wed05/06/25 at 2100, Until Discontinued, Do not crush or chew Given 05/07/2025 8:44 AM EDT 600 mg LEVOthyroxine (SYNTHROID) tablet 50 mcg 50 mcg, Oral, BEFORE BREAKFAST, First dose on Wed05/07/25 at 0600, Until Discontinued, Take on empty stomach, at least 30 minutes to 1 hour before breakfast. Take at least 4 hours prior before or after calcium- or iron-containing products or bile acid sequestrants. If given via NG or other tubes administer dose as long as possible after feeding and at least 1 hour before resuming feeding. Given 05/07/2025 5:20 AM EDT 50 mcg methylPREDNISolone sodium succinate (Solu-MEDROL) injection 40 mg 40 mg, Intravenous, *EVERY 8 HOURS, First dose on Wed05/06/25 at 2200, Until Discontinued Given 05/07/2025 5:20 AM EDT 40 mg ondansetron (ZOFRAN) injection 4 mg 4 mg, Intravenous, EVERY 4 HOURS PRN, Starting on Wed05/06/25 at 1349, Until Wed05/07/25 at 1432, Nausea, IV push over 2 - 5 minutes for doses 4 mg and less. ondansetron (ZOFRAN) tablet 4 mg 4 mg, Oral, EVERY 4 HOURS PRN, Starting on Wed05/06/25 at 1349, Until Wed05/07/25 at 1432, Nausea oxyCODONE-acetaminophen (PERCOCET) 5-325 mg per tablet 1 Tablet 1 Tablet, Oral, EVERY 6 HOURS PRN, Starting on Wed05/06/25 at 1448, Until Wed05/07/25 at 1432, Pain Unrelieved by Oral Non-Opioid Therapy, *Maximum adult dose of acetaminophen is 4000 mg from all sources in 24 hours.* Given 05/07/2025 5:20 AM EDT 1 Tablet pantoprazole (PROTONIX) tablet 40 mg 40 mg, Oral, DAILY, First dose on Wed05/06/25 at 1700, Until Discontinued, Do not crush or chew Given 05/07/2025 8:44 AM EDT 40 mg rOPINIRole (REQUIP) tablet 1 mg 1 mg, Oral, NIGHTLY, First dose on Wed05/06/25 at 2100, Until Discontinued Given 05/06/2025 9:13 PM EDT 1 mg sodium chloride 0.9% IV line flush 50 mL 50 mL, Intravenous, at 999 mL/hr, PRN, Starting on Wed05/06/25 at 1219, Until Wed05/07/25 at 1432, Line Care, Flush with 50 mL after IVPB to insure complete administration of the dose. May use the saline infusion to back flush IVPB tubing as needed., Use this order to document priming and flushing IV line after medication administration. sodium chloride 0.9% syringe 5-10 mL 5-10 mL, Intravenous, PRN, Starting on Wed05/06/25 at 1219, Until Wed05/07/25 at 1432, Line Care, Flush with 5 mL saline pre/post IVP, and 5 mL prior to IVPB or blood product administration. Protocol for PERIPHERAL IV saline lock maintenance, flush with 3-5 mL saline syringe every 8 hours., Flush peripheral lines every 12 hours, central lines every 8 hours, and after IV medication sotaloL (BETAPACE) tablet 80 mg 80 mg, Oral, 2 TIMES DAILY, First dose on Wed05/06/25 at 2100, Until Discontinued Given 05/06/2025 9:13 PM EDT 80 mg documented in this encounter Discontinued Medications Medication Sig Discontinue Reason Start Date End Da te tnuodkgzjso-ylzmgfxxa-eo lanter (TRELEGY ELLIPTA) 200-62.5-25 mcg Inhl Disk with DeviceIndications:COPD, severe (HCC) Inhale 1 Puff into the lungs daily. 10/24/2024 05/07/2025 sjphrytbffi-kywjmjdww-je lanter (TRELEGY ELLIPTA) 200-62.5-25 mcg Inhl Disk with DeviceIndications:COPD, severe (HCC) Inhale 1 Puff into the lungs daily. 05/07/2025 05/07/2025 documented as of this encounter Active and Recently Administered Medications Times are shown in EDT. Scheduled Medication Order 05/05/2025 05/06/2025 05/07/2025 acetylcysteine (NAC) capsule 600 mg 600 mg, Oral, 2 TIMES DAILY, First dose on Wed05/06/25 at 2100, Until Discontinued 2112 (Given - Provider: Kulwinder Helm RN) 0844 (Given - Provider: Elinor Nichols RN) albuterol-ipratropium (DUO-NEB) 3 mg-0.5 mg(2.5 mg base)/3 mL nebulizer solution 3 mL(Linked Group 1) 3 mL, Nebulization, 4 TIMES DAILY EVENLY DISTRIBUTED (RESP CARE) (4 times per day), First dose on Wed05/06/25 at 1630, Until Discontinued, Administered by Respiratory Therapy. 145 (Given - Provider: Elena Medel CRT)1999 (Given - Provider: Thom Key, RIGGING UP WORKER) 020 (Due)0836 (Given - Provider: [place] Felix Stucco Worker) apixaban (ELIQUIS) tablet 5 mg 5 mg, Oral, 2 TIMES DAILY, First dose on 05/06/25 at 2100, Until Discontinued 2112 (Given - Provider: Kulwinder Helm RN) 0844 (Given - Provider: Elinor Nichols RN) atorvastatin (LIPITOR) tablet 40 mg 40 mg, Oral, NIGHTLY, First dose on 05/06/25 at 2100, Until Discontinued 2112 (Given - Provider: Kulwinder Helm RN) budesonide (PULMICORT) 0.5 mg/2 mL nebulizer suspension 500 mcg 500 mcg, Nebulization, 2 TIMES DAILY (RESP CARE), First dose on 05/06/25 at 1999, Until Discontinued, Protect from light. 1999 (Given - Provider: Thom Key, FABIAN) 0836 (Given - Provider: [place] Felix Stucco Worker) guaiFENesin (MUCINEX) 12 hr tablet 600 mg 600 mg, Oral, 2 TIMES DAILY, First dose on 05/06/25 at 2100, Until Discontinued, Do not crush or chew 2112 (Given - Provider: Kulwinder Helm RN) 0844 (Given - Provider: Elinor Nichols RN) LEVOthyroxine (SYNTHROID) tablet 50 mcg 50 mcg, Oral, BEFORE BREAKFAST, First dose on Wed05/07/25 at 0600, Until Discontinued, Take on empty stomach, at least 30 minutes to 1 hour before breakfast. Take at least 4 hours prior before or after calcium- or iron-containing products or bile acid sequestrants. If given via NG or other tubes administer dose as long as possible after feeding and at least 1 hour before resuming feeding. 0520 (Given - Provid er: Kulwinder Helm RN) lisinopriL (PRINIVIL;ZESTril) tablet 5 mg 5 mg, Oral, DAILY, First dose on Wed05/07/25 at 0900, Until Discontinued, +++ACEI Medication+++ 0900 (Hold - Provide r: Elinor Nichols RN - Reason: Order parameters not met - Comment: BP 95/50, hoild per Dr. garcia) methylPREDNISolone sodium succinate (Solu-MEDROL) injection 40 mg 40 mg, Intravenous, *EVERY 8 HOURS, First dose on 05/06/25 at 2200, Until Discontinued 2112 (Given - Provider: Kulwinder Helm RN) 0520 (Given - Provider: Kulwinder Helm RN) pantoprazole (PROTONIX) tablet 40 mg 40 mg, Oral, DAILY, First dose on 05/06/25 at 1700, Until Discontinued, Do not crush or chew 1630 (Given - Provider: Nhan Antonio RN) 0844 (Given - Provider: Elinor Nichols RN) rOPINIRole (REQUIP) tablet 1 mg 1 mg, Oral, NIGHTLY, First dose on 05/06/25 at 2100, Until Discontinued 2112 (Given - Provider: Kulwinder Helm RN) sotaloL (BETAPACE) tablet 80 mg 80 mg, Oral, 2 TIMES DAILY, First dose on 05/06/25 at 2100, Until Discontinued 2112 (Given - Provider: Kulwinder Helm RN) 0900 (Hold - Provider: Elinor Nichlos RN - Reason: Order parameters not met - Comment: BP 95/50, hold per Dr. Garcia) PRN Medication Order 05/05/2025 05/06/2025 05/07/2025 acetaminophen (TYLENOL) tablet 650 mg 650 mg, Oral, EVERY 4 HOURS PRN, Starting on 05/06/25 at 1349, Until 05/07/25 at 1432, Pain, Fever, Maximum adult dose of acetaminophen is 4000 mg from all sources in 24 hours. albuterol (PROVENTIL) nebulizer solution 2.5 mg(Linked Group 1) 2.5 mg, Nebulization, PRN, Starting on 05/06/25 at 1446, Until 05/07/25 at 1432, Wheezing, Shortness of Breath gabapentin (NEURONTIN) capsule 800 mg 800 mg, Oral, 3 TIMES DAILY PRN, Starting on 05/06/25 at 1525, Until 05/07/25 at 1432, Pain, Capsules may be opened and contents dissolved in water for administration ondansetron (ZOFRAN) injection 4 mg(Linked Group 2) 4 mg, Intravenous, EVERY 4 HOURS PRN, Starting on 9/28/25 at 1349, Until Wed05/07/25 at 1432, Nausea, IV push over 2 - 5 minutes for doses 4 mg and less. ondansetron (ZOFRAN) tablet 4 mg(Linked Group 2) 4 mg, Oral, EVERY 4 HOURS PRN, Starting on Wed05/06/25 at 1349, Until Wed05/07/25 at 1432, Nausea oxyCODONE-acetaminophen (PERCOCET) 5-325 mg per tablet 1 Tablet 1 Tablet, Oral, EVERY 6 HOURS PRN, Starting on Wed05/06/25 at 1448, Until Wed05/07/25 at 1432, Pain Unrelieved by Oral Non-Opioid Therapy, *Maximum adult dose of acetaminophen is 4000 mg from all sources in 24 hours.* 1630 (Given - Provider: Nhan Antonio, RN) 0520 (Given - Provider: Kulwinder Helm RN) sodium chloride 0.9% IV line flush 50 mL 50 mL, Intravenous, at 999 mL/hr, PRN, Starting on Wed05/06/25 at 1219, Until Wed05/07/25 at 1432, Line Care, Flush with 50 mL after IVPB to insure complete administration of the dose. May use the saline infusion to back flush IVPB tubing as needed., Use this order to document priming and flushing IV line after medication administration. sodium chloride 0.9% syringe 5-10 mL 5-10 mL, Intravenous, PRN, Starting on Wed05/06/25 at 1219, Until Wed05/07/25 at 1432, Line Care, Flush with 5 mL saline pre/post IVP, and 5 mL prior to IVPB or blood product administration. Protocol for PERIPHERAL IV saline lock maintenance, flush with 3-5 mL saline syringe every 8 hours., Flush peripheral lines every 12 hours, central lines every 8 hours, and after IV medication Linked Groups Order Group 1: albuterol-ipratropium (DUO-NEB) 3 mg-0.5 mg(2.5 mg base)/3 mL nebulizer solution 3 mLJump to med 3 mL, Nebulization, 4 TIMES DAILY EVENLY DISTRIBUTED (RESP CARE) (4 times per day), First dose on Wed05/06/25 at 1630, Until Discontinued, Administered by Respiratory Therapy. And albuterol (PROVENTIL) nebulizer solution 2.5 mgJump to med 2.5 mg, Nebulization, PRN, Starting on 05/06/25 at 1446, Until Wed05/07/25 at 1432, Wheezing, Shortness of Breath Group 2: ondansetron (ZOFRAN) tablet 4 mgJump to med 4 mg, Oral, EVERY 4 HOURS PRN, Starting on Wed05/06/25 at 1349, Until Wed05/07/25 at 1432, Nausea Or ondansetron (ZOFRAN) injection 4 mgJump to med 4 mg, Intravenous, EVERY 4 HOURS PRN, Starting on 05/06/25 at 1349, Until 05/07/25 at 1432, Nausea, IV push over 2 - 5 minutes for doses 4 mg and less. documented in this encounter Orders Medications Ordered That Chris ht Not Have Been Administered Count Last Ordered Date First Ordered Date acetaminophen (TYLENOL) tablet 650 mg 1 albuterol (PROVENTIL) nebuli zer solution 2.5 mg 2 05/06/2025 albuterol-ipratropium (DUO-N EB) 3 mg-0.5 mg(2.5 mg base)/3 mL nebulizer solution 3 mL 1 05/06/2025 budesonide-formoteroL (SYMBI ANTHONY) 160-4.5 mcg/actuation inhaler 2 Puff 1 05/06/2025 gabapentin (NEURONTIN) capsule 800 mg 1 lisinopriL (PRINIVIL;ZESTril) tablet 5 mg 1 05/06/2025 ondansetron (ZOFRAN) injection 4 mg 1 05/06 ondansetron (ZOFRAN) tablet 4 mg 1 05/06/20 sodium chloride 0.9% IV line flush 50 mL 1 05/06/2025 sodium chloride 0.9% syringe 5-10 mL 1 04/10 tiotropium bromide (SPIRIVA RESPIMAT) inhalation mist 2 Puff 1 05/06/2025 Respiratory Care Count Last Ordered Date First Ordered Date ED ASSESS & TREAT 1 05/06/2025 Admission Count Last Ordered Date First Orde red Date ADMIT 1 05/06/2025 Discharge Count Last Ordered Date First Orde red Date DISCHARGE PATIENT 1 05/07/2025 documented in this encounter Additional Health Concerns Infection Onset Date Last Indicated Resolved Time R/O COVID-19 05/06/2025 05/06/2025 05/06/2025 12:5 1 PM EDT documented as of this encounter Care Teams Adoption Specialist Relationship Specialty Start Date End Date Deion Quinn MD [address] [place] [address] PCP - General Family Medicine 02/27/25 Jose Salcido MD [address] [place] [id number] Family Medicine 06/28/22 Tamir Resendez MD [address] [place] [address] Consulting Physician Internal Medicine - Clinical Cardiac Electrophysiology 12/09/16 documented as of this encounter
--- OUTSIDE RECORDS SUMMARY | 2025-06-16 13:30 | XMS_ITS | Encounter Summary ---
Author [place] [address] Care Team Providers Care Audit Clerk Name Role Phone Davie Leahy MD Primary Care Provider [phone] Nima Callahan DO Primary Care Provider [phone] Bertha Whaley APRN Primary Care Provider [phone] Jose Salcido MD Primary Care Provider [phone] Jose Salcido MD Primary Care Provider [phone] Jose Salcido MD Unavailable [phone] Tamir Resendez MD Unavailable [phone] Carmela Pastor AVIATION SURVIVAL TECHNICIAN Unavailable Unavailable Marina Soto AVIATION SURVIVAL TECHNICIAN Unavailable Lydia vailable Denise Bryan RN Unavailable Unavai Christina Farmer RN Unavailable Unavailable Jessika Fuentes RN Unavailable Unavailabl e Locker, Leida L Unavailable Unavailable Denise Bryan RN Unavailable Unavai Amadou Velasquez BA, COS Unavailable Unavailabl e Locker, Leida L Unavailable Unavailable Betty Matt RN Unavailable Unavailable Dixie Michelle MACHINE PLATE STACKER Unavailable Unavailable Locker, Leida L Unavailable Unavailable Ko Hunter MACHINE PLATE STACKER Unavailable Unavailable Ko Hunter MACHINE PLATE STACKER Unavailable Unavailable Locker, Leida L Unavailable Unavailable Yu Coates RN Unavailable Unavailable Yu Coates RN Unavailable Unavailable Saud, Stefanie Helen SURVEYING TECHNICIAN Unavailable Unava ilable Locker, Leida L Unavailable Unavailable BranchYu RN Unavailable Unavailable Locker, Leida L Unavailable Unavailable BranchYu RN Unavailable Unavailable Locker, Leida L Unavailable Unavailable Oanh Andres RN Unavailable Unavailable Oanh Andres RN Unavailable Unavailable Locker, Leida L Unavailable Unavailable Janis Marie RN Unavailable Unavaila Saida Ramírez APRN Primary Care Provider [phone] David Prajapati MACHINE PLATE STACKER Unavailable Unavailable Locker, Leida L Unavailable Unavailable No Pcp, Per Patient Primary Care Provider Deion Childers MD Primary Care Provider [phone] Encounter Details Date Type Department Care Team (Late st Contact Info) Description 01/07/2017 Orders Only [facility] [address] [address] Tamir Resendez MD [address] [place] [address] Social History Tobacco Use Types Packs/Day Years Used Date Smoking Tobacco: Former Cigarettes 2 19.2 0 09/25/1997 - 12/06/2016 Smokeless Tobacco: Never Comments:trying to quit smok ing Alcohol Use Standard Drinks/Week Comments No 0 (1 standard drink = 0.6 oz pur e alcohol) Sex and Gender Information Value Date Recorded Sex Assigned at Not on file Legal Sex Male 2:47 PM EDT Gender Identity Not on file Sexual Orientation Not on file documented as of this encounter Functional Status * Is the person deaf or does he/she have serious difficulty hearing? Answer Date of Assessment Author No 09/29/2016 11:43 AM Yodit Monteiro RN * Is the person blind or does he/she have serious difficulty seeing even when wearing glasses? Answer Date of Assessment Author No 09/29/2016 11:43 AM Yodit Monteiro RN * Does this person have serious difficulty walking or climbing stairs? Answer Date of Assessment Author No 09/29/2016 11:43 AM Yodit Monteiro RN * Does this person have difficulty dressing or bathing? Answer Date of Assessment Author No 09/29/2016 11:43 AM Yodit Monteiro RN * Because of a physical, mental or emotional condition, does this person have difficulty doing errands alone such as visiting a doctor's office or shopping? Answer Date of Assessment Author No 09/29/2016 11:43 AM Yodit Monteiro RN documented as of this encounter Mental Status * Because of a physical, mental or emotional condition, does this person have serious difficulty concentrating, remembering or making decisions? Answer Entry Date Author No 09/29/2016 11:43 AM Yodit Monteiro RN documented in this encounter Plan of Treatment Not on file documented as of this encounter Goals Goal Patient Goal Type Associated Problems Recent Progress Patient-Stated? Author Blood Pressure < 140/90 Blood Pressure 95/50( 025 8:36 AM EDT) No Carmela Pastor LPN Eat better, exercise, reach an ideal body weight General No Romina Becker CMA Stay Tobacco Free Lifestyle Not on track( 022 1:53 PM EDT) No Romina Becker CMA documented as of this encounter Procedures Procedure Name Priority Date/Time Associated Diagnosis Comments PACEART REPORT Routine 01/07/2017 11:50 AM EDT documented in this encounter Results * PACEART REPORT (01/07/2017 11:50 AM EDT) 01/07/2017 11:5 0 AM EDT Narrative [facility] - 01/07/2017 5:21 PM EDT Carelink transmission to evaluate response to Coreg 12.5mg bid for AF with RVR. AF burden has decreased to 4.6% and longest episode of 8 minutes. Patient states he is feeling much better. See note in Epic. KM us Tamir Resendez MD [facility] CARDIAC CATH ORDERABLE S Final Result [facility] [address] [place] [address] documented in this encounter Visit Diagnoses Not on filedocumented in this encounter Additional Health Concerns Infection Onset Date Last Indicated Resolved Time R/O COVID-19 05/19/2021 05/19/2021 05/19/2021 11:5 9 PM EDT R/O COVID-19 07/05/2021 07/05/2021 07/05/2021 6:19 AM EST R/O COVID-19 11/07/2021 11/07/2021 11/07/2021 7:39 PM EDT R/O COVID-19 02/14/2022 02/14/2022 02/14/2022 8:28 PM EDT R/O COVID-19 04/01/2022 04/01/2022 04/02/2022 12:1 8 AM EDT R/O COVID-19 06/28/2022 06/28/2022 06/28/2022 1:53 PM EST R/O COVID-19 07/12/2022 07/12/2022 07/12/2022 9:58 PM EST R/O COVID-19 01/08/2023 01/08/2023 01/08/2023 7:52 PM EDT R/O COVID-19 02/18/2023 02/18/2023 02/18/2023 7:49 PM EDT R/O COVID-19 03/12/2023 03/12/2023 03/12/2023 5:11 PM EDT R/O COVID-19 04/22/2023 04/22/2023 04/22/2023 12:5 1 PM EDT R/O COVID-19 06/07/2023 06/07/2023 06/07/2023 8:01 PM EDT R/O COVID-19 09/04/2023 09/04/2023 09/04/2023 2:21 AM EST R/O COVID-19 09/18/2023 09/18/2023 09/18/2023 5:34 PM EST R/O COVID-19 09/29/2023 09/29/2023 09/29/2023 10:0 0 AM EST INFLUENZA Comment:Afebrile with no further symptoms 10/10/23 09/29/2023 09/29/2023 10/10/2023 1:[address] R/O COVID-19 10/22/2023 10/22/2023 10/22/2023 10:0 2 PM EDT R/O COVID-19 11/13/2023 11/13/2023 11/13/2023 6:48 PM EDT R/O COVID-19 12/22/2023 12/22/2023 12/22/2023 6:17 PM EDT R/O Influenza 12/22/2023 12/22/2023 12/22/2023 6:1 7 PM EDT R/O COVID-19 01/31/2024 01/31/2024 01/31/2024 10:3 8 AM EDT R/O COVID-19 05/12/2024 05/12/2024 05/12/2024 3:45 AM EDT R/O Influenza 05/12/2024 05/12/2024 05/12/2024 3:4 5 AM EDT R/O COVID-19 09/13/2024 09/13/2024 09/13/2024 8:19 PM EST R/O COVID-19 10/21/2024 10/21/2024 10/21/2024 5:02 PM EDT R/O COVID-19 10/21/2024 10/21/2024 10/21/2024 10:0 9 PM EDT R/O COVID-19 05/06/2025 05/06/2025 05/06/2025 12:5 1 PM EDT documented as of this encounter Care Teams Audit Clerk Relationship Specialty Start Date End Date Davie Leahy MD PCP - General Family Medicine 10/07/16 07/10/19 Nima Callahan DO [address] [place] [address] PCP - General Family Medicine 07/11/19 05/25/22 Bertha Whaley APRN [address] [place] [id number] PCP - General Nurse Practitioner 05/28/22 06/17/22 Jose Salcido MD [address] [place] [address] PCP - General Family Medicine 06/18/22 06/27/22 Jose Salcido MD [address] [place] [address] PCP - General Family Medicine 06/28/22 01/06/24 Saida Marcano APRN [address] [place] [address] [place] [address] PCP - General Nurse Practitioner-Family 01/07/24 No Pcp, Per Patient PCP - General 09/14/24 02/26/25 Deion Quinn MD [address] [place] [address] PCP - General Family Medicine 02/27/25 Jose Salcido MD [address] [place] [address] Family Medicine 06/28/22 Tamir Resendez MD [address] [place] [address] [place] [address] Consulting Physician Internal Medicine - Clinical Cardiac Electrophysiology 12/09/16 Carmela Pastor, AVIATION SURVIVAL TECHNICIAN [facility] Licensed Practical Nurse 08/16/17 09/14/17 Marina Soto LPN [facility] Licensed Practical Nurse 03/22/18 01/26/19 Denise Bryan, RN [employer] Printing Press Operator Registered Nurse 07/07/21 07/07/21 Christina Short, RN [employer] Print[employer] Press Operator Registered Nurse 07/08/21 05/20/22 Jessika Fuentes, RN [employer] Printing Press Operator Registered Nurse 02/18/22 03/22/22 Moiz, Leida L Respiratory Therapist Respiratory Therapist, Registered 02/18/22 05/20/22 Denise Bryan, RN [employer] Print[employer] Press Operator Registered Nurse 04/06/22 04/29/22 Amadou Dominguez BA, COS Case Oracle Fusion Middleware Developer 06/03/22 06/10/22 Moiz, Leida L Respiratory Therapist Respiratory Therapist, Registered 06/29/22 07/16/22 Betty Matt, RN [employer] Printing Press Operator Registered Nurse 07/20/22 04/29/23 Dixie Michelle, MACHINE PLATE STACKER Respiratory Therapist 11/02/22 3 Moiz, Leida L Respiratory Therapist Respiratory Therapist, Registered 12/02/22 12/20/22 Ko Hunter, MACHINE PLATE STACKER Respiratory Therapist 02/10/23 03/09/23 Ko Hunter, MACHINE PLATE STACKER Respiratory Therapist 03/10/23 03/11/23 Moiz, Leida L Respiratory Therapist Respiratory Therapist, Registered 04/27/23 05/09/23 Yu Coates, RN [employer] Printing Press Operator Registered Nurse 05/10/23 05/10/23 Jaxon, Yu Ott, RN [employer] Printing Press Operator Registered Nurse 05/13/23 05/19/23 Stefanie Villavicencio, [facility] Wafer Batter Mixer 07/19/23 08/22/23 Moiz, Leida L Respiratory Therapist Respiratory Therapist, Registered 09/20/23 10/12/23 Yu Coates, RN Flex[employer] Printing Press Operator Registered Nurse 10/13/23 10/25/23 Moiz, Leida L Respiratory Therapist Respiratory Therapist, Registered 10/22/23 10/26/23 Yu Coates, RN Flexographic Printing Press Operator Registered Nurse 10/28/23 11/15/23 L[place]helby, Leida L Respiratory Therapist Respiratory Therapist, Registered 11/15/23 12/02/23 Oanh Andres, RN Flexographic Printing Press Operator 11/17/23 11/23/23 Oanh Andres, RN Flexographic Printing Press Operator 11/24/23 11/24/23 Moiz, Leida L Respiratory Therapist Respiratory Therapist, Registered 12/23/23 04/11/24 Janis Marie, RN Flexographic Printing Press Operator Registered Nurse 12/31/23 01/05/24 David Prajapati, FABIAN Respiratory Therapist 01/31/24 4 Leida Rockwell Respiratory Therapist Respiratory Therapist, Registered 05/12/24 05/23/24 documented as of this encounter
--- OUTSIDE RECORDS SUMMARY | 2025-06-16 13:30 | XMS_ITS | Encounter Summary ---
Author Organization [place] [address] Care Team Providers Care Right Of Way Appraiser Name Role Phone Davie Leahy MD Primary Care Provider [phone] Nima Callahan DO Primary Care Provider [phone] Bertha Whaley APRN Primary Care Provider [phone] Jose Salcido MD Primary Care Provider [phone] Jose Salcido MD Primary Care Provider [phone] Jose Salcido MD Unavailable [phone] Tamir Resendez MD Unavailable [phone] Marina Soto LPN Unavailable Lydia vailable Denise Bryan RN Unavailable Unavai Christina Farmer RN Unavailable Unavailable Jessika Fuentes RN Unavailable Unavailabl e Locker, Leida L Unavailable Unavailable Denise Bryan RN Unavailable Unavai Amadou Velasquez BA, COS Unavailable Unavailabl e Locker, Leida L Unavailable Unavailable Betty Matt RN Unavailable Unavailable Dixie Michelle BILLING REP Unavailable Unavailable Locker, Leida L Unavailable Unavailable Ko Hunter BILLING REP Unavailable Unavailable Ko Hunter BILLING REP Unavailable Unavailable Locker, Leida L Unavailable Unavailable Yu Coates RN Unavailable Unavailable Yu Coates RN Unavailable Unavailable Stefanie Villavicencio DATA INPUT CLERK Unavailable Unava ilable Locker, Leida L Unavailable Unavailable Yu Coates Namrata RN Unavailable Unavailable Locker, Leida L Unavailable Unavailable Yu Coates RN Unavailable Unavailable Locker, Leida L Unavailable Unavailable Oanh Andres RN Unavailable Unavailable Oanh Andres RN Unavailable Unavailable Locker, Leida L Unavailable Unavailable Janis Marie RN Unavailable Unavaila Saida Ramírez APRN Primary Care Provider [phone] David Prajapati BILLING REP Unavailable Unavailable Locker, Leida L Unavailable Unavailable No Pcp, Per Patient Primary Care Provider Deion Childers MD Primary Care Provider [phone] Encounter Details Date Type Department Care Team (Late st Contact Info) Description 11/25/2017 Orders Only [facility] [address] [address] Tamir Resendez MD [address] [place] [address] Social History Tobacco Use Types Packs/Day Years Used Date Smoking Tobacco: Every Day Cigarettes 3 19.2 Started: 09/25/1997; Last attempted to quit: 12/06/2016 Smokeless Tobacco: Never Comments:trying to quit smok ing Alcohol Use Standard Drinks/Week Comments No 0 (1 standard drink = 0.6 oz pur e alcohol) Sexually Active Control Partners Comments Yes Female Sex and Gender Information Value Date Recorded Sex Assigned at Not on file Legal Sex Male 2:47 PM EDT Gender Identity Not on file Sexual Orientation Not on file documented as of this encounter Functional Status * Is the person deaf or does he/she have serious difficulty hearing? Answer Date of Assessment Author No 10/26/2017 10:16 AM EDT Neville Becker CMA * Is the person blind or does he/she have serious difficulty seeing even when wearing glasses? Answer Date of Assessment Author No 10/26/2017 10:16 AM TONIAT Neville Becker CMA * Does this person have serious difficulty walking or climbing stairs? Answer Date of Assessment Author No 10/26/2017 10:16 AM TONIAT Neville Becker CMA * Does this person have difficulty dressing or bathing? Answer Date of Assessment Author No 10/26/2017 10:16 AM EDT Neville Becker CMA * Because of a physical, mental or emotional condition, does this person have difficulty doing errands alone such as visiting a doctor's office or shopping? Answer Date of Assessment Author No 10/26/2017 10:16 AM EDT Neville Becker CMA documented as of this encounter Mental Status * Because of a physical, mental or emotional condition, does this person have serious difficulty concentrating, remembering or making decisions? Answer Entry Date Author No 10/26/2017 10:16 AM EDT Neville Becker CMA documented in this encounter Plan of Treatment [...] Date/Time Associated Diagnosis Comments PACEART REPORT Routine 11/25/2017 1:52 PM EDT documented in this encounter Results * PACEART REPORT (11/25/2017 1:52 PM EDT) 11/25/2017 1:52 PM EDT Tamir Resendez MD [facility] CARDIAC CATH ORDERABLE S Final Result Performing Organization Address City/State/[facility] Co de Phone Number [facility] [address] [place] [address] documented in this encounter Visit Diagnoses Not on filedocumented in this encounter Additional Health Concerns Infection Onset Date Last Indicated Resolved Time R/O COVID-19 05/19/2021 05/19/2021 05/19/2021 11:5 9 PM EDT R/O COVID-19 07/05/2021 07/05/2021 07/05/2021 6:19 AM EST R/O COVID-19 11/07/2021 11/07/202111/07/2021 7:39 PM EDT R/O COVID-19 02/14/2022 02/14/2022 [...] documented as of this encounter Care Teams Right Of Way Appraiser Relationship Specialty Start Date End Date Davie Leahy MD PCP - General Family Medicine 10/07/16 07/10/19 Nima Callahan DO [address] [place] [address] PCP - General Family Medicine 07/11/19 05/25/22 Bertha Whaley APRN [address] [place] [address] PCP - General Nurse Practitioner 05/28/22 06/17/22 Jose Salcido MD [address] [place] [address] PCP - General Family Medicine 06/18/22 06/27/22 Jose Salcido MD [address] [place] [address] PCP - General Family Medicine 06/28/22 01/06/24 Saida Marcano APRN [address] [place] [address] [place] [address] PCP - General Nurse Practitioner-Family 01/07/24 No Pcp, Per Patient PCP - General 09/14/24 02/26/25 Deion Quinn MD [address] [place] [address] PCP - General Family Medicine 02/27/25 Jose Salcido MD [address] [place] [address] Family Medicine 06/28/22 Tamir Resendez MD [address] [place] [address] [place] [address] Consulting Physician Internal Medicine - Clinical Cardiac Electrophysiology 12/09/16 Marina Soto DIRECTOR OF ADVERTISING SALES [facility] Licensed Practical Nurse 03/22/18 01/26/19 Denise Bryan, RN Aircraft Cleaner Registered Nurse 07/07/21 07/07/21 Christina Short, RN Aircraft Cleaner Registered Nurse 07/08/21 05/20/22 Jessika Fuentes, RN Aircraft Cleaner Registered Nurse 02/18/22 03/22/22 Leida Rockwell Respiratory Therapist Respiratory Therapist, Registered 02/18/22 05/20/22 Denise Bryan, RN Aircraft Cleaner Registered Nurse 04/06/22 04/29/22 Amadou Dominguez, BA, COS Case Supervisor Drying 06/03/22 06/10/22 Moiz, Leida L Respiratory Therapist Respiratory Therapist, Registered 06/29/22 07/16/22 Betty Matt, RN Aircraft Cleaner Registered Nurse 07/20/22 04/29/23 Dixie Michelle, BILLING REP Respiratory Therapist 11/02/22 3 Moiz, Leida L Respiratory Therapist Respiratory Therapist, Registered 12/02/22 12/20/22 Ko Hunter, BILLING REP Respiratory Therapist 02/10/23 03/09/23 Ko Hunter, BILLING REP Respiratory Therapist 03/10/23 03/11/23 oMiz, Leida L Respiratory Therapist Respiratory Therapist, Registered 04/27/23 05/09/23 Jaxon, Yu Ott, RN Aircraft Cleaner Registered Nurse 05/10/23 05/10/23 Jaxon, Yu Ott, RN Aircraft Cleaner Registered Nurse 05/13/23 05/19/23 Stefanie Villavicencio, [facility] Measurer Machine 07/19/23 08/22/23 Moiz, Leida L Respiratory Therapist Respiratory Therapist, Registered 09/20/23 10/12/23 Jaxon, Yu Ott, RN Aircraft Cleaner Registered Nurse 10/13/23 10/25/23 Moiz, Leida L Respiratory Therapist Respiratory Therapist, Registered 10/22/23 10/26/23 Jaxon, Yu Ott, RN Aircraft Cleaner Registered Nurse 10/28/23 11/15/23 Moiz, Leida L Respiratory Therapist Respiratory Therapist, Registered 11/15/23 12/02/23 Oanh Andres, RN Aircraft Cleaner 11/17/23 11/23/23 Oanh Andres, RN Aircraft Cleaner 11/24/23 11/24/23 Moiz, Leida L Respiratory Therapist Respiratory Therapist, Registered 12/23/23 04/11/24 Janis Marie, RN Aircraft Cleaner Registered Nurse 12/31/23 01/05/24 David Prajapati, BILLING REP Respiratory Therapist 01/31/24 4 Locker, Leida L Respiratory Therapist Respiratory Therapist, Registered 05/12/24 05/23/24 documented as of this encounter
--- OUTSIDE RECORDS SUMMARY | 2025-06-16 13:30 | XMS_ITS | Encounter Summary ---
Author Organization [place] [address] Care Team Providers Care Fugitive Detective Name Role Phone Davie Leahy MD Primary Care Provider [phone] Nima Callahan DO Primary Care Provider [phone] Bertha Whaley APRN Primary Care Provider [phone] Jose Salcido MD Primary Care Provider [phone] Jose Salcido MD Primary Care Provider [phone] Jose Salcido MD Unavailable [phone] Tamir Resendez MD Unavailable [phone] Carmela Pastor DIETICIAN Unavailable Unavailable Marina Soto DIETICIAN Unavailable Lydia vailable Denise Bryan RN Unavailable Unavai Christina Farmer RN Unavailable Unavailable Jessika Fuentes RN Unavailable Unavailabl e Locker, Leida L Unavailable Unavailable Denise Bryan RN Unavailable Unavai Amadou Velasquez BA, COS Unavailable Unavailabl e Locker, Leida L Unavailable Unavailable Betty Matt RN Unavailable Unavailable Dixie Michelle DIRECTOR GLOBAL STRATEGIC PUBLISHER SALES Unavailable Unavailable Locker, Leida L Unavailable Unavailable Ko Hunter DIRECTOR GLOBAL STRATEGIC PUBLISHER SALES Unavailable Unavailable Ko Hunter DIRECTOR GLOBAL STRATEGIC PUBLISHER SALES Unavailable Unavailable Locker, Leida L Unavailable Unavailable Yu Coates RN Unavailable Unavailable Yu Coates RN Unavailable Unavailable Saud, Stefanie Helen COKE HANDLING SUPERVISOR Unavailable Unava ilable Locker, Leida L Unavailable Unavailable BranchYu RN Unavailable Unavailable Locker, Leida L Unavailable Unavailable BranchYu RN Unavailable Unavailable Locker, Leida L Unavailable Unavailable Oanh Andres RN Unavailable Unavailable Oanh Andres RN Unavailable Unavailable Locker, Leida L Unavailable Unavailable Janis Marie RN Unavailable Unavaila Saida Ramírez APRN Primary Care Provider [phone] David Prajapati DIRECTOR GLOBAL STRATEGIC PUBLISHER SALES Unavailable Unavailable Locker, Leida L Unavailable Unavailable No Pcp, Per Patient Primary Care Provider Deion Childers MD Primary Care Provider [phone] Encounter Details Date Type Department Care Team (Late st Contact Info) Description 12/09/2016 Orders Only [facility] [address] [address] Tamir Resendez MD [address] [place] [id number] Social History Tobacco Use Types Packs/Day [...] Type Associated Problems Recent Progress Patient-Stated? Author Eat better, exercise, reach an ideal body weight General No Romina Becker CMA Stay Tobacco Free Lifestyle Not on track( 022 1:53 PM EDT) No Romina Becker CMA documented as of this encounter Procedures Procedure Name Priority Date/Time Associated Diagnosis Comments PACEART REPORT Routine 12/09/2016 12:24 PM EDT documented in this encounter Results * PACEART REPORT (12/09/2016 12:24 PM EDT) 12/09/2016 12:2 4 PM EDT Narrative [facility] - 12/09/2016 1:05 PM EDT implant report us Tamir Resendez MD [facility] CARDIAC CATH ORDERABLE S Final Result Performing Organization Address City/State/[facility] de Phone Number [facility] [address] [place] [address] documented in this encounter Visit Diagnoses Not [...] documented as of this encounter Care Teams Fugitive Detective Relationship Specialty Start Date End Date Davie Leahy MD PCP - General Family Medicine 10/07/16 07/10/19 Nima Callahan DO [address] [place] [address] PCP - General Family Medicine 07/11/19 05/25/22 Bertha Whaley APRN [address] [place] [address] PCP - General Nurse Practitioner 05/28/22 06/17/22 Jose Salcido MD [address] [place] [address] PCP - General Family Medicine 06/18/22 06/27/22 Jose Salcido MD [address] [place] [address] PCP - General Family Medicine 06/28/22 01/06/24 Saida Marcano APRN [facility] [place] [address] PCP - General Nurse Practitioner-Family 01/07/24 No Pcp, Per Patient PCP - General 09/14/24 02/26/25 Deion Quinn MD [address] [place] [address] PCP - General Family Medicine 02/27/25 Jose Salcido MD [address] [place] [address] Family Medicine 06/28/22 Tamir Resendez MD [address] [place] [address] [place] [address] Consulting Physician Internal Medicine - Clinical Cardiac Electrophysiology 12/09/16 Carmela Pastor, DIETICIAN [facility] Licensed Practical Nurse 08/16/17 09/14/17 Marina Soto DIETICIAN [facility] Licensed Practical Nurse 03/22/18 01/26/19 Denise Bryan, RN Lift Supervisor Registered Nurse 07/07/21 07/07/21 Christina Short, RN Lift Supervisor Registered Nurse 07/08/21 05/20/22 Jessika Fuentes, RN Lift Supervisor Registered Nurse 02/18/22 03/22/22 Leida Rockwell Respiratory Therapist Respiratory Therapist, Registered 02/18/22 05/20/22 Denise Bryan, RN Lift Supervisor Registered Nurse 04/06/22 04/29/22 Amadou Dominguez, BA, COS Case Living Skills Advisor 06/03/22 06/10/22 Moiz, Leida L Respiratory Therapist Respiratory Therapist, Registered 06/29/22 07/16/22 Betty Matt, RN Lift Supervisor Registered Nurse 07/20/22 04/29/23 Dixie Michelle, DIRECTOR GLOBAL STRATEGIC PUBLISHER SALES Respiratory Therapist 11/02/22 3 Moiz, Leida L Respiratory Therapist Respiratory Therapist, Registered 12/02/22 12/20/22 Ko Hunter, DIRECTOR GLOBAL STRATEGIC PUBLISHER SALES Respiratory Therapist 02/10/23 03/09/23 Ko Hunter, DIRECTOR GLOBAL STRATEGIC PUBLISHER SALES Respiratory Therapist 03/10/23 03/11/23 Moiz, Leida L Respiratory Therapist Respiratory Therapist, Registered 04/27/23 05/09/23 Jaxon, Yu Ott, RN Lift Supervisor Registered Nurse 05/10/23 05/10/23 Jaxon, Yu Ott, RN Lift Supervisor Registered Nurse 05/13/23 05/19/23 Stefanie Villavicencio, [facility] Road Engineer Freight 07/19/23 08/22/23 Moiz, Leida L Respiratory Therapist Respiratory Therapist, Registered 09/20/23 10/12/23 Branch, Yu Ott, RN Lift Supervisor Registered Nurse 10/13/23 10/25/23 Moiz, Leida L Respiratory Therapist Respiratory Therapist, Registered 10/22/23 10/26/23 Branch, Yu Ott, RN Lift Supervisor Registered Nurse 10/28/23 11/15/23 Moiz, Leida L Respiratory Therapist Respiratory Therapist, Registered 11/15/23 12/02/23 Oanh Andres, RN Lift Supervisor 11/17/23 11/23/23 Oanh Andres, RN Lift Supervisor 11/24/23 11/24/23 Moiz, Leida L Respiratory Therapist Respiratory Therapist, Registered 12/23/23 04/11/24 Janis Marie, RN Lift Supervisor Registered Nurse 12/31/23 01/05/24 David Prajapati, DIRECTOR GLOBAL STRATEGIC PUBLISHER SALES Respiratory Therapist 01/31/24 4 Locker, Leida L Respiratory Therapist Respiratory Therapist, Registered 05/12/24 05/23/24 documented as of this encounter
--- OUTSIDE RECORDS SUMMARY | 2025-06-16 13:30 | XMS_ITS | Encounter Summary ---
Author Organization [place] [address] Care Team Providers Care Spot Washer Name Role Phone SindyNima Jorden SHUKLA Primary Care Provider [phone] Bertha Whaley APRN Primary Care Provider [phone] Jose Salcido MD Primary Care Provider [phone] Jose Salcido MD Primary Care Provider [phone] Jose Salcido MD Unavailable [phone] Tamir Resendez MD Unavailable [phone] Christina Short RN Unavailable Unavailable Jessika Fuentes RN Unavailable Unavailabl e Locker, Leida L Unavailable Unavailable Denise Bryan RN Unavailable Unavai Amadou Velasquez BA, COS Unavailable Unavailabl e Locker, Leida L Unavailable Unavailable Betty Matt RN Unavailable Unavailable Dixie Michelle VALUATION MANAGER Unavailable Unavailable Locker, Leida L Unavailable Unavailable [employer] VALUATION MANAGER Unavailable Unavailable [employer] VALUATION MANAGER Unavailable Unavailable Locker, Leida L Unavailable Unavailable Yu Coates RN Unavailable Unavailable Yu Coates RN Unavailable Unavailable Stefanie Villavicencio LABORATORY APPARATUS GLASS BLOWER Unavailable Unava ilable Locker, Leida L Unavailable Unavailable BranchYu RN Unavailable Unavailable Locker, Leida L Unavailable Unavailable Yu Coates RN Unavailable Unavailable Locker, Leida L Unavailable Unavailable Oanh Andres RN Unavailable Unavailable Bertke, Oanh RN Unavailable Unavailable Locker, Leida L Unavailable Unavailable Janis Marie RN Unavailable UnavailSaida Russo APRN Primary Care Provider [phone] David Prajapati VALUATION MANAGER Unavailable Unavailable Leida Rockwell Unavailable Unavailable No Pcp, Per Patient Primary Care Provider Deion Childers MD Primary Care Provider [phone] Encounter Details Date Type Department Care Team (Late st Contact Info) Description 07/28/2021 Orders Only [facility] Edg [address] [place] [address] Tamir Resendez MD [address] [place] [address], [place] [address] Social History Tobacco Use Types Packs/Day Years Used Date Smoking Tobacco: Every Day Cigarettes 1.5 44.9 Started: 1979 Smokeless Tobacco: Never Comments:trying to quit smok ing - feels patches don't work. States smoking helps with nerves. Alcohol Use Standard Drinks/Week Comments No 0 (1 standard drink = 0.6 oz pur e alcohol) Overall Financial Resource Strain (CARDIA) Answe r Date Recorded How hard is it for you to pa y for the very basics like food, housing, medical care, and heating? Not hard at all 07/07/2021 PHQ-2 Answer Date Recorded PHQ-2 Score 0 12/29/2018 [facility] - Occupational Stress Questionnaire Answer Date Recorded Do you feel stress - tense, restless, nervous, or anxious, or unable to sleep at night because your mind is troubled all the time - these days? To some extent 07/07/2021 Exercise Vital Sign Answer Date Recorde d On average, how many days pe r week do you engage in moderate to strenuous exercise (like a brisk walk)? 0 days 07/07/2021 On average, how many minutes do you engage in exercise at this level? 0 min 07/07/2021 Hunger Vital Sign Answer Date Recorded Within the past 12 months, y ou worried that your food would run out before you got the money to buy more. Never true 07/07/20 21 Within the past 12 months, t he food you bought just didn't last and you didn't have money to get more. Never true 07/07/2021 PRAPARE - Transportation Answer Date Re corded In the past 12 months, has l ack of transportation kept you from medical appointments or from getting medications? No 06/10 In the past 12 months, has l ack of transportation kept you from meetings, work, or from getting things needed for daily living? No 07/07/2021 Sexually Active Control Partners Comments Yes Female Sex and Gender Information Value Date Recorded Sex Assigned at Not on file Legal Sex Male 2:47 PM EDT Gender Identity Not on file Sexual Orientation Not on file COVID-19 Exposure Response Date Recorded In the last month, have you been in contact with someone who was confirmed or suspected to have Coronavirus / COVID-19? No / Unsure 07/28/2021 11:27 AM EST documented as of this encounter Functional Status * Is the person deaf or does he/she have serious difficulty hearing? Answer Date of Assessment Author No 09/22/2018 3:59 PM Scott Rose CMA * Is the person blind or does he/she have serious difficulty seeing even when wearing glasses? Answer Date of Assessment Author No 09/22/2018 3:59 PM Scott Rose CMA * Does this person have serious difficulty walking or climbing stairs? Answer Date of Assessment Author No 09/22/2018 3:59 PM Scott Rose CMA * Does this person have difficulty dressing or bathing? Answer Date of Assessment Author No 09/22/2018 3:59 PM Scott Rose CMA * Because of a physical, mental or emotional condition, does this person have difficulty doing errands alone such as visiting a doctor's office or shopping? Answer Date of Assessment Author No 09/22/2018 3:59 PM Scott Rose CMA documented as of this encounter Mental Status * Because of a physical, mental or emotional condition, does this person have serious difficulty concentrating, remembering or making decisions? Answer Entry Date Author No 09/22/2018 3:59 PM Scott Rose CMA documented in this encounter Plan of [...] Date/Time Associated Diagnosis Comments PACEART REPORT Routine 07/28/2021 5:56 PM EST documented in this encounter Results * PACEART REPORT (07/28/2021 5:56 PM EST) 07/28/2021 5:56 PM EST us Tamir Resendez MD [facility] CARDIAC CATH ORDERABLE S Final Result Performing Organization Address City/State/[facility] Co de Phone Number [facility] [address] [place] [address] documented in this encounter Visit Diagnoses Not on filedocumented in this encounter Additional Health Concerns Infection Onset Date Last Indicated Resolved Time R/O COVID-19 11/07/2021 11/07/2021 11/07/2021 7:39 PM [...] documented as of this encounter Care Teams Spot Washer Relationship Specialty Start Date End Date Nima Callahan DO [address] [place] [address] PCP - General Family Medicine 07/11/19 05/25/22 Bertha Wahley APRN [address] [place] [address] PCP - General Nurse Practitioner 05/28/22 06/17/22 Jose Salcido MD [address] [place] [address] PCP - General Family Medicine 06/18/22 06/27/22 Jose Salcido MD [address] [place] [address] PCP - General Family Medicine 06/28/22 01/06/24 Saida Marc[place] [address] [place] [address] PCP - General Nurse Practitioner-Family 01/07/24 No Pcp, Per Patient PCP - General 09/14/24 02/26/25 Deion Quinn MD [address] [place] [address] PCP - General Family Medicine 02/27/25 Jose Salcido MD [address] [place] [address] Family Medicine 06/28/22 Tamir Resendez MD [address] [place] [address] [place] [address] Consulting Physician Internal Medicine - Clinical Cardiac Electrophysiology 12/09/16 Christina Short, RN Golf Player Assistant Registered Nurse 07/08/21 05/20/22 Jessika Fuentes, RN Golf Player Assistant Registered Nurse 02/18/22 03/22/22 Moiz, Leida L Respiratory Therapist Respiratory Therapist, Registered 02/18/22 05/20/22 Denise Bryan, RN Golf Player Assistant Registered Nurse 04/06/22 04/29/22 Amadou Dominguez, BA, COS Case Construction Inspector 06/03/22 06/10/22 Moiz, Leida L Respiratory Therapist Respiratory Therapist, Registered 06/29/22 07/16/22 Betty Matt, RN Golf Player Assistant Registered Nurse 07/20/22 04/29/23 Dixie Michelle, VALUATION MANAGER Respiratory Therapist 11/02/22 3 Moiz, Leida L Respiratory Therapist Respiratory Therapist, Registered 12/02/22 12/20/22 Ko Hunter, VALUATION MANAGER Respiratory Therapist 02/10/23 03/09/23 Ko Hunter, VALUATION MANAGER Respiratory Therapist 03/10/23 03/11/23 Moiz, Leida L Respiratory Therapist Respiratory Therapist, Registered 04/27/23 05/09/23 Yu oCates, RN Golf Player Assistant Registered Nurse 05/10/23 05/10/23 Yu Coates, RN Golf Player Assistant Registered Nurse 05/13/23 05/19/23 Stefanie Villavicencio, LABORATORY APPARATUS GLASS BLOWER Cooperative Extension Agent 07/19/23 08/22/23 Moiz Leida L Respiratory Therapist Respiratory Therapist, Registered 09/20/23 10/12/23 Yu Coates, RN Golf Player Assistant Registered Nurse 10/13/23 10/25/23 Moiz, Leida L Respiratory Therapist Respiratory Therapist, Registered 10/22/23 10/26/23 Yu Coates, RN Golf Player Assistant Registered Nurse 10/28/23 11/15/23 Leida Rockwell Respiratory Therapist Respiratory Therapist, Registered 11/15/23 12/02/23 Oanh Andres, RN Golf Player Assistant 11/17/23 11/23/23 Oanh Andres, RN Golf Player Assistant 11/24/23 11/24/23 Leida Rockwell Respiratory Therapist Respiratory Therapist, Registered 12/23/23 04/11/24 Janis Marie RN Golf Player Assistant Registered Nurse 12/31/23 01/05/24 David Prajapati, FABIAN Respiratory Therapist 01/31/24 4 Leida Rockwell Respiratory Therapist Respiratory Therapist, Registered 05/12/24 05/23/24 documented as of this encounter
--- OUTSIDE RECORDS SUMMARY | 2025-06-16 13:30 | XMS_ITS | Clinical Summary ---
Author Organization [facility] Address [address] [place] [address] Phone Care Team Providers Care Social And Human Services Assistant Name Role Phone Jose Salcido MD Unavailable [phone] Tamir Resendez MD Unavailable [phone] Deion Quinn MD Primary Care Provider [phone] Allergies Active Allergy Reactions Criticality Noted Date Comments Amitriptyline Other (See Comments) High 04/07/2010 Feels like bugs are crawling on him Diphenhydramine Hcl Anaphylaxis,Other (See Comments) High 11/04/2010 Passes out Doxepin Other (See Comments) High 08/25/2022 Feels like bugs crawling on his skin Levofloxacin Other (See Comments) High 01/20/2023 [place] like throat closing Metoprolol Shortness Of Breath High 12/14/2016 Penicillins Anaphylaxis High 11/04/2010 Pt states Knocks me out Tolerates cephalosporins Bupropion Hcl Nausea And Vomiting Medium 07/01/2022 Medications Nebulizer & Compressor For [facility] DeviceIndication s:Chronic obstructive pulmonary disease, unspecified COPD type (HCC) 1 Device by [facility]Non-Drug; Combo Route) route daily. 1 Device 12/04/19 21 Active Oxygen and Equipment MISCELLANEOU 1 Device by MISCELLANEOUS route once. Active pantoprazole (PROTONIX) 40 mg Oral Tablet, Delayed Release (E.C.)Indication s:Gastroesophage al reflux disease without esophagitis Take 1 Tablet by mouth daily. 90 Tablet 3 01/07/20 24 Active atorvastatin (LIPITOR) 40 mg Oral TabletIndication s:Peripheral vascular disease,Coronary artery disease involving [place] coronary artery of [place] heart without angina pectoris Take 1 Tablet by mouth nightly. 90 Tablet 2 01/07/20 24 Active LEVOthyroxine (SYNTHROID) 50 mcg Oral TabletIndication s:Hypothyroidism due to acquired atrophy of thyroid Take 1 Tablet by mouth before breakfast. 90 Tablet 1 01/07/20 24 Active rOPINIRole (REQUIP) 1 mg Oral TabletIndication s:Restless legs syndrome (RLS) Take 1 Tablet by mouth nightly. 90 Tablet 1 01/07/20 24 Active apixaban (ELIQUIS) 5 mg Oral TabletIndication s:Paroxysmal A-fib (HCC) Take 1 Tablet by mouth 2 times daily. 60 Tablet 5 01/11/20 24 Active sotaloL (BETAPACE) 80 mg Oral TabletIndication s:Paroxysmal A-fib (HCC) TAKE 1 TABLET BY MOUTH TWICE A DAY 200 Tablet 2 04/06/20 24 Active lisinopriL (PRINIVIL;ZESTRI L) 5 mg Oral Tablet Take 1 Tablet by mouth daily. 30 Tablet 09/18/19 25 Active albuterol (VENTOLIN HFA) 90 mcg/actuation Inhl HFA Aerosol InhalerIndicatio ns:COPD exacerbation (HCC) Inhale 2 Puffs into the lungs every 4 hours as needed. for wheezing 18 Each 6 10/25/19 25 Active guaiFENesin (MUCINEX) 600 mg Oral Tablet Extended Release 12hr Take 1 Tablet by mouth 2 times daily. 60 Each 10/25/19 25 Active acetylcysteine (NAC) 600 mg Oral Capsule Take 1 Capsule by mouth 2 times daily. 60 Capsule 6 10/25/19 25 Active nalOXone (NARCAN) 4 mg/actuation Nasl [place], Non-Aerosol 0.1 mL by Nasal route as needed for Opioid Reversal. [place] the contents of one device (0.1mL) into one nostril upon signs of opioid overdose. Call 911. May repeat dose in other nostril if no response within 2-3 minutes. 1 Each 10/25/19 25 Active gabapentin (NEURONTIN) 800 mg Oral Tablet Take 800 mg by mouth 3 times daily as needed. for pain Active oxyCODONE-acetam inophen (PERCOCET) 10-325 mg Oral Tablet Take 1 Tablet by mouth every 6 hours as needed for Acute Pain > 3 Days Medically Necessary (R52). 12 Tablet 04/02/20 Active fluticasone-umec lidin-vilanter (TRELEGY ELLIPTA) 200-62.5-25 mcg Inhl Disk with DeviceIndication s:COPD, severe (HCC) Inhale 1 Puff into the lungs daily. 60 Each 11 5 8:56 AM EDT 05/07/20 Active predniSONE (DELTASONE) 20 mg Oral Tablet Take 2 Tablets by mouth daily for 3 days, THEN 1.5 Tablets daily for 3 days, THEN 1 Tablet daily for 3 days, THEN one-half tablet daily for 3 days. 15 Tablet 8:56 AM EDT 05/07/20 025 Active Problems Patient Care Coordination No te Formatting of this note migh t be different from the original. Utilization audit completed by Ade Byrne RN on 11/22/2023. 04/21/2022 Dismissed from [facility] 02/23/2022 [facility] - MyChart and mailed letter AW 09/23/2021 [facility] 01/21/2021 - [facility] - MyChart and Mailed Letter AW - appointment updated to cancel 01/28/2021 07/10/2020 [facility] 01/28ac For Percocet + Gabapentin Kaspar: reviewed in chart by 12/18/22 UDS: 06/03/2022 Contracts: 06/03/2022 Soap: 06/10/2022 Problem Noted Date Diagnosed Date Essential hypertension 03/30/2025 Assessment & Plan (04/04/2025 1:35 PM EDT): On lisinopril 5 mg daily. Assessment & Plan (04/03/2025 3:06 PM EDT): On lisinopril 5 mg daily. Assessment & Plan (04/02/2025 10:16 AM EDT): On lisinopril 5 mg daily Assessment & Plan (04/01/2025 9:33 AM EDT): On lisinopril 5 mg daily Assessment & Plan (03/31/2025 3:30 PM EDT): On lisinopril 5 mg daily Assessment & Plan (03/30/2025 2:03 PM EDT): Will resume lisinopril 5 mg daily Hyperlipidemia 03/30/2025 Assessment & Plan (04/04/2025 1:35 PM EDT): Continue Lipitor 40 mg daily. Assessment & Plan (04/03/2025 1:32 PM EDT): Continue Lipitor 40 mg daily. Assessment & Plan (04/02/2025 10:16 AM EDT): Continue Lipitor 40 mg daily. Assessment & Plan (04/01/2025 9:33 AM EDT): Continue Lipitor 40 mg daily. Assessment & Plan (03/31/2025 3:30 PM EDT): Continue Lipitor 40 mg daily. Assessment & Plan (03/30/2025 2:03 PM EDT): Resume Lipitor 40 mg daily. Compression fracture of body of thoracic vertebr a 02/28/2025 Acute on chronic respiratory failure with hypercapnia due to COPD exacerbation 02/26/2025 Assessment & Plan (02/26/2025 10:35 PM EDT): Duoneb QID Solumedrol 40 mg Q8 hours. BiPAP as needed Lymphadenopathy 10/22/2024 Assessment & Plan (10/23/2024 8:55 AM EDT): CT personally reviewed demonstrating increased lymphadenopathy. Enlarged right hilar lymph nodes are increased in size from the previous examination and are indeterminate. No obvious suspicious pulmonary nodule noted. Given the patient is high-risk for lung cancer, a short-term follow-up CT in 1-3 months is advised. Assessment & Plan (10/22/2024 9:34 AM EDT): CT personally reviewed demonstrating increased lymphadenopathy. Enlarged right hilar lymph nodes are increased in size from the previous examination and are indeterminate. No obvious suspicious pulmonary nodule noted. Given the patient is high-risk for lung cancer, a short-term follow-up CT in 1-3 months is advised. Right serous otitis media 05/14/2024 Assessment & Plan (05/24/2024 5:04 PM EDT): On larger taper steriod. No indication for add't antibiotics. Appears to be improving. Orders: MRI BRAIN ATTN IACS W WO CONTRAST; Future Assessment & Plan (05/14/2024 11:37 AM EDT): Recently treated for AOM with Omnicef. Fluid appears clear now but does persist. Chew gum, ask ENT to see Thrombocytopenia 10/02/2023 Tracheobronchitis 09/19/2023 Nodule of lower lobe of left lung 09/19/2023 CGD (chronic granulomatous disease) 09/19/2023 MEG (iron deficiency anemia) 06/09/2023 Assessment & Plan (04/04/2024 1:57 PM EDT): Not on meds currently. Cervantes's cyst of knee, right 03/01/2023 Overview (03/01/2023): 02/2023 Noted incidentally on US of LE's Dyslipidemia 01/14/2023 Assessment & Plan (02/26/2025 10:35 PM EDT): On Lipitor 40 mg daily. Primary hypertension 10/25/2022 Assessment & Plan (02/26/2025 10:35 PM EDT): Resume Lisinopril 5 mg daily Assessment & Plan (10/23/2024 8:55 AM EDT): Currently with labile blood pressures. Continue DIRECTOR DIABETES lisinopril with parameters in place Assessment & Plan (10/22/2024 9:34 AM EDT): Currently with labile blood pressures. Continue DIRECTOR DIABETES lisinopril with parameters in place Assessment & Plan (05/14/2024 11:37 AM EDT): Follow here. Stable Assessment & Plan (05/13/2024 12:25 PM EDT): Follow here Assessment & Plan (05/12/2024 10:51 AM EDT): Hypotensive overnight. On low dose pressor. Follow here FHx: colon cancer 08/25/2022 Acute on chronic hypoxic respiratory failure Overview (05/24/2024): Due to COPD O2 dependent On trelegy, NAC and duoneb Quit smoking. Assessment & Plan (04/04/2025 3:36 PM EDT): Continue DuoNeb as needed at home Resume prednisone taper. On Mucinex 600 mg twice daily. Encourage use of BiPAP as tolerated. Resume Trelegy. Assessment & Plan (04/03/2025 3:06 PM EDT): Continue DuoNeb as needed at home Will restart IV steroids given his drowsiness. On Mucinex 600 mg twice daily. Encourage use of BiPAP as tolerated. Assessment & Plan (04/02/2025 12:49 PM EDT): Continue DuoNeb as needed at home Continue prednisone taper for now On Mucinex 600 mg twice daily. Resume home Trelegy Assessment & Plan (04/01/2025 10:51 AM EDT): We will treat with DuoNeb 4 times daily Continue prednisone taper for now On Mucinex 600 mg twice daily. Assessment & Plan (03/31/2025 3:30 PM EDT): We will treat with DuoNeb 4 times daily Change in Medrol to prednisone taper Mucinex 600 mg twice daily. Assessment & Plan (03/30/2025 2:03 PM EDT): We will treat with DuoNeb 4 times daily Solu-Medrol 40 mg every 8 hours Mucinex 600 mg twice daily. Assessment & Plan (10/23/2024 8:55 AM EDT): Secondary to above and likely worsened by mucous plugging. Baseline oxygen requirements of 3 L via nasal. Requiring increased supplemental oxygen on admission. Start expectorants. Flutter valve management as above and wean oxygen as tolerated. Assessment & Plan (10/22/2024 12:48 PM EDT): Secondary to above and likely worsened by mucous plugging. Baseline oxygen requirements of 3 L via nasal. Requiring increased supplemental oxygen on admission. Start expectorants. Flutter valve management as above and wean oxygen as tolerated. Assessment & Plan (05/24/2024 5:04 PM EDT): Quit smoking. Using supplemental oxygen On a large taper steroid. Continue same. Lumbar spondylosis 04/29/2022 COPD exacerbation 07/05/2021 Assessment & Plan (04/04/2025 3:36 PM EDT): Continue DuoNeb as needed at home Resume prednisone taper. On Mucinex 600 mg twice daily. Encourage use of BiPAP as tolerated. Resume Trelegy. Assessment & Plan (04/03/2025 3:06 PM EDT): Continue DuoNeb as needed at home Will restart IV steroids given his drowsiness. On Mucinex 600 mg twice daily. Encourage use of BiPAP as tolerated. Assessment & Plan (04/02/2025 12:49 PM EDT): Continue DuoNeb as needed at home Continue prednisone taper for now On Mucinex 600 mg twice daily. Resume home Trelegy Assessment & Plan (04/01/2025 10:51 AM EDT): We will treat with DuoNeb 4 times daily Continue prednisone taper for now On Mucinex 600 mg twice daily. Assessment & Plan (03/31/2025 3:30 PM EDT): We will treat with DuoNeb 4 times daily Change in Medrol to prednisone taper Mucinex 600 mg twice daily. Assessment & Plan (03/30/2025 2:03 PM EDT): We will treat with DuoNeb 4 times daily Solu-Medrol 40 mg every 8 hours Mucinex 600 mg twice daily. Assessment & Plan (02/26/2025 10:35 PM EDT): Duoneb QID Solumedrol 40 mg Q8 hours. BiPAP as needed Assessment & Plan (10/23/2024 8:55 AM EDT): DuoNeb treatments QID and prn respiratory distress. IV Solu-Medrol 60 mg q 6hrs followed by p.o. prednisone upon discharge. Start doxycycline and Rocephin. ABG prn desaturations. Supplemental oxygen as needed to maintain oxygen saturations 88% to 92. Wean oxygen as tolerated. I-S and flutter valve. COPD coordinator consulted. Assessment & Plan (10/22/2024 9:34 AM EDT): DuoNeb treatments QID and prn respiratory distress. IV Solu-Medrol 60 mg q 6hrs followed by p.o. prednisone upon discharge. Start doxycycline and Rocephin. ABG prn desaturations. Supplemental oxygen as needed to maintain oxygen saturations 88% to 92. Wean oxygen as tolerated. I-S and flutter valve. COPD coordinator consulted. Assessment & Plan (09/17/2024 9:07 AM EST): -was on IV steroids, now PO -pt is on 2 LPM O2 -doxy Assessment & Plan (09/17/2024 8:10 AM EST): -IV steroids -doxy -sputum non induced pending -O2 dependent 3 LPM O2 Assessment & Plan (05/14/2024 11:37 AM EDT): Driven by tobacco abuse. Continue steroids, breathing treatments Assessment & Plan (05/13/2024 12:25 PM EDT): Driven by tobacco abuse. Continue steroids, breathing treatments Assessment & Plan (05/12/2024 10:51 AM EDT): Driven by tobacco abuse. Continue steroids, breathing treatments Assessment & Plan (07/08/2021 10:25 AM EST): Improving continue current medications Chronic pain syndrome 07/05/2021 Assessment & Plan (08/25/2022 1:00 PM EST): Has appt to see pain specialist in [place] late SEP Remains on percocet + gabapentin I will refill today until he can establish with his new pain doctor rodriguez as expected, UDS up to date Tobacco dependence 07/05/2021 Assessment & Plan (02/26/2025 10:35 PM EDT): Patient is advised to stop smoking Narcotic dependence 12/03/2020 Overview (12/03/2020): On percocet for pain Assessment & Plan (05/14/2024 11:37 AM EDT): Needs smoking cessation Assessment & Plan (05/12/2024 10:51 AM EDT): Needs smoking cessation Sacroiliitis 12/19/2019 Chronic left-sided low back pain with left-sided sciatica 01/02/2018 Assessment & Plan (10/23/2024 3:40 PM EDT): MRI personally reviewed with compression fracture. Discussed with interventional radiology, patient prefers to pursue vertebroplasty in outpatient setting despite ongoing severe pain. Assessment & Plan (10/22/2024 12:48 PM EDT): Continues to endorse significant lower back pain with left-sided radiculopathy requiring opioid analgesia. Will obtain MRI Migraine without aura and wi thout status migrainosus, not intractable 10/26/2017 Pacemaker 12/09/2016 Overview (12/09/2016): Medtronic, dual chamber pacemaker for tachybrady syndrome on 12/09/[address] 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 Assessment & Plan (04/03/2025 1:32 PM EDT): Continue Eliquis 5 mg twice daily and Betapace 80 mg twice daily. Assessment & Plan (04/02/2025 10:16 AM EDT): Continue Eliquis 5 mg twice daily and Betapace 80 mg twice daily. Assessment & Plan (04/01/2025 9:33 AM EDT): Continue Eliquis 5 mg twice daily and Betapace 80 mg twice daily. Assessment & Plan (03/31/2025 10:09 AM EDT): Continue Eliquis 5 mg twice daily and Betapace 80 mg twice daily. Assessment & Plan (03/30/2025 2:03 PM EDT): Continue Eliquis 5 mg twice daily and Betapace 80 mg twice daily. Assessment & Plan (02/26/2025 10:35 PM EDT): Resume Eliquis 5 mg BID and Sotalol 80 mg BID Assessment & Plan (10/23/2024 8:55 AM EDT): Continue [employer] DIABETES Eliquis and sotalol Assessment & Plan (10/22/2024 9:34 AM EDT): Continue DIRECTOR DIABETES Eliquis and sotalol Assessment & Plan (09/17/2024 9:07 AM EST): -Rate controlled 60s today -BB and Eliquis Dispo -Today home Assessment & Plan (09/17/2024 8:10 AM EST): -Rate controlled 60s this am -BB and Eliquis Hypertension -BP 132/73 -started on lisinopril, clonidine prn Dispo -TBD Assessment & Plan (05/14/2024 11:37 AM EDT): Regular now Assessment & Plan (05/13/2024 12:25 PM EDT): Regular now Assessment & Plan (05/12/2024 10:51 AM EDT): Regular now Assessment & Plan (02/28/2024 10:42 AM EDT): Eliquis, sotalol Rates controlled 02/27 Assessment & Plan (02/27/2024 9:08 AM EDT): Eliquis, sotalol Rates controlled Assessment & Plan (08/25/2022 6:45 AM EST): Stable on current Sees cardiology Assessment & Plan (07/08/2021 10:25 AM EST): On blood thinner Peripheral vascular disease 11/25/2016 Overview (01/07/2024): Still smoking On eliquis and statin Assessment & Plan (08/25/2022 6:45 AM EST): On statin No ASA due to concurrent eliquis use Hypothyroidism due to acquired atrophy of thyroi d 09/28/2016 Overview (01/07/2024): On synthroid. Assessment & Plan (04/04/2025 1:35 PM EDT): On Synthroid 50 mcg daily. Assessment & Plan (04/03/2025 3:06 PM EDT): On Synthroid 50 mcg daily. Assessment & Plan (04/02/2025 10:16 AM EDT): On Synthroid 50 mcg daily Assessment & Plan (04/01/2025 9:33 AM EDT): On Synthroid 50 mcg daily Assessment & Plan (03/31/2025 10:09 AM EDT): On Synthroid 50 mcg daily Assessment & Plan (03/30/2025 2:03 PM EDT): On Synthroid 50 mcg daily Assessment & Plan (02/26/2025 10:35 PM EDT): Resume Synthroid 50 mcg daily Assessment & Plan (05/14/2024 11:37 AM EDT): Home meds and follow Assessment & Plan (05/13/2024 12:25 PM EDT): Home meds and follow Assessment & Plan (05/12/2024 10:51 AM EDT): Home meds and follow Assessment & Plan (02/28/2024 10:42 AM EDT): levothyroxine Assessment & Plan (02/27/2024 9:08 AM EDT): levothyroxine Assessment & Plan (08/25/2022 6:47 AM EST): Stable on replacement ABISAI (generalized anxiety disorder) 01/22/2012 Assessment & Plan (02/26/2025 10:35 PM EDT): Continue to monitor Assessment & Plan (09/17/2024 9:07 AM EST): -stable today, was on Buspar while inpatient Assessment & Plan (09/17/2024 8:10 AM EST): -Buspar prn Coronary artery disease invo [place]ving [place] coronary artery of [place] heart without angina pectoris 11/04/2010 Overview (01/07/2024): On statin, jose miguel and bb Assessment & Plan (04/04/2025 1:35 PM EDT): Continue to monitor for now. Assessment & Plan (04/03/2025 1:32 PM EDT): Continue to monitor for now. Assessment & Plan (04/02/2025 10:16 AM EDT): Continue to monitor for now. Assessment & Plan (04/01/2025 9:33 AM EDT): Continue to monitor for now. Assessment & Plan (03/31/2025 10:09 AM EDT): Continue to monitor for now. Assessment & Plan (03/30/2025 2:03 PM EDT): Continue to monitor for now. Assessment & Plan (09/17/2024 9:07 AM EST): -REGINALD gomez Eliquis Assessment & Plan (09/17/2024 8:10 AM EST): -REGINALD gomez Eliquis Assessment & Plan (08/25/2022 6:46 AM EST): On statin, CCB Sees cardiology Assessment & Plan (07/08/2021 10:26 AM EST): History of STEMI COPD, severe 11/04/2010 Overview (01/07/2024): Tobacco use O2 dependent On trelegy and duoneb Followed by pulm Assessment & Plan (08/25/2022 12:57 PM EST): On trelegy + albuterol prn Stable overall except mild flare today, tx doxy/steroid shot Stop smoking Assessment & Plan (07/08/2021 10:25 AM EST): Continue Trelegy, does have desaturations on exertion DDD (degenerative disc disease), lumbar 11/05/19 11 Overview (04/04/2024): Failed conservative mgmt. Was with spine, then referred to pain mgmt Has been on gabapentin and oxycodone in past Does have hx of failed drug screens Assessment & Plan (04/04/2024 1:59 PM EDT): Having increasing debilitating pain. Agreeable to restarting gabapentin if his uds is clear Will monitor closely with frequent pill counts and drug screens Assessment & Plan (01/07/2024 1:50 PM EDT): High risk for sedation given polypharmacy and chronic health conditions. Aware that I cannot prescribe or manage his pain management and that he will need to keep his appointment with pain management. Did provide him a bridge of tramadol until his appointment. CSA and hB deferred d/t short term use Last Successful PDMP Review: 01/07/2024 1:47 PM by Saida Marcano APRN Primary insomnia 11/04/2010 Assessment & Plan (08/25/2022 6:46 AM EST): On doxepin stable Anxiety and depression 11/04/2010 Assessment & Plan (04/04/2025 1:35 PM EDT): Continue supportive care. Assessment & Plan (04/03/2025 1:32 PM EDT): Continue supportive care. Assessment & Plan (04/02/2025 10:16 AM EDT): Continue supportive care. Assessment & Plan (04/01/2025 9:33 AM EDT): Continue supportive care. Assessment & Plan (03/31/2025 10:09 AM EDT): Continue supportive care. Assessment & Plan (03/30/2025 2:03 PM EDT): Continue supportive care. Assessment & Plan (02/26/2025 10:35 PM EDT): Continue to monitor Assessment & Plan (02/28/2024 10:42 AM EDT): Not currently on any meds Assessment & Plan (02/27/2024 9:08 AM EDT): Not currently on any meds RLS (restless legs syndrome) 11/04/2010 Assessment & Plan (10/23/2024 8:55 AM EDT): Requip. Check iron studies Assessment & Plan (10/22/2024 12:48 PM EDT): Requip. Check iron studies Assessment & Plan (09/17/2024 9:07 AM EST): -DIRECTOR DIABETES Requip Assessment & Plan (09/17/2024 8:10 AM EST): -DIRECTOR DIABETES Requip Assessment & Plan (08/25/2022 6:46 AM EST): On requip stable AR (allergic rhinitis) 11/04/2010 Gastroesophageal reflux disease without esophagi tis 11/04/2010 Overview (01/07/2024): On ppi Assessment & Plan (08/25/2022 6:47 AM EST): Symptoms controlled but would recommend PPI addition due to concurrent AC with eliquis Sinus node dysfunction Overview (05/06/2017): S/P Medtronic dual chamber pacemaker implant 12/09/2016 Resolved Problems Problem Noted Date Diagnosed Date Resolved Date Acute encephalopathy 05/12/2024 024 Assessment & Plan (05/14/2024 11:37 AM EDT): Resolving with improvement of respiratory failure Assessment & Plan (05/13/2024 12:25 PM EDT): Resolving with improvement of respiratory failure Assessment & Plan (05/12/2024 10:51 AM EDT): Weaned from Precedex this morning. Redirect as needed Acute respiratory failure wi th hypoxia and hypercapnia 05/11/2024 05/24/2024 Assessment & Plan (05/14/2024 11:37 AM EDT): Improving. Needs BiPAP when he leaves Assessment & Plan (05/13/2024 12:25 PM EDT): Wore BiPAP short period overnight. Feels much better. Needs BiPAP at home Assessment & Plan (05/12/2024 10:51 AM EDT): Remains on BiPAP. Continue supportive care and follow Acute respiratory failure with hypercapnia 02/27/2024 04/04/2024 Assessment & Plan (02/28/2024 10:42 AM EDT): Secondary to COPD Wean O2 to keep sats 88-92% Stable on 3LPM Assessment & Plan (02/27/2024 9:08 AM EDT): Secondary to COPD Wean O2 to keep sats 88-92% On 2-3L NC at home Bipap PRN COPD exacerbation 01/30/2024 04/04/2024 Assessment & Plan (02/28/2024 10:42 AM EDT): Given solumedrol in the ED CXR reviewed and lung opacity is improving Continue prednisone Continue inhaled bronchodilators Assessment & Plan (02/27/2024 9:08 AM EDT): Given solumedrol in the ED CXR reviewed and lung opacity is improving He was recently treated for pneumonia less than 1 month ago Given the improvement in lung opacity, no fever or leukocytosis, neg procal would not continue abx, monitor off abx Prednisone 40mg x 5 days Continue inhaled bronchodilators PT consult, may need pulmonary rehab Pneumonia of left lower lobe due to infectious organism 12/27/2023 04/04/2024 Tobacco abuse 12/25/2023 01/07/2024 COPD with acute exacerbation 12/22/2023 01/07/2024 Infection due to Stenotrophomonas maltophilia 11/20/19 24 04/04/2024 Pneumonia due to Pseudomonas aeruginosa 11/20/2023 04/04/2024 Acute respiratory failure wi th hypoxia and hypercapnia 11/13/2023 01/07/2024 Respiratory acidosis 10/23/2023 024 HCAP (healthcare-associated pneumonia) 10/23/2023 01/07/2024 Sepsis with acute hypoxic re spiratory failure without septic shock, due to unspecified organism 10/22/2023 01/07/2024 Influenza 09/29/2023 01/07/2024 Hemoptysis 09/19/2023 01/07/2024 Shortness of breath 09/18/2023 01/07/20 24 Goals of care, counseling/discussion 05/19/2023 09/13/2023 DNR (do not resuscitate) discussion 05/19/2023 09/13/2023 Palliative care by specialist 05/19/2023 09/13/2023 COPD exacerbation 05/18/2023 01/07/2024 Pneumonia of left lower lobe due to Pseudomonas species 05/12/2023 04/04/2024 Acute metabolic encephalopathy 05/03/2023 09/13/2023 Acute on chronic respiratory failure with hypoxia and hypercapnia 05/02/2023 09/13/2023 Pneumonia due to suspected g yoselin-negative bacteria 04/22/2023 09/13/2023 Fracture of multiple ribs of left side with routine healing 04/06/2023 09/13/2023 Shortness of breath 04/05/2023 04/29/20 23 Septic shock 03/20/2023 04/29/2023 Acute on chronic respiratory failure with hypoxia and hypercapnia 03/19/2023 04/29/2023 Acute on chronic respiratory failure with hypercapnia 03/12/2023 04/29/2023 COPD (chronic obstructive pulmonary disease) 03/01/2023 Shortness of breath 02/16/2023 03/01/20 23 Hypothyroid 02/03/2023 01/07/2024 Severe sepsis 01/14/2023 01/07/2024 Left lower lobe pneumonia 01/14/2023 COPD exacerbation 12/01/2022 04/29/2023 Left leg swelling 11/09/2022 03/01/2023 Assessment & Plan (11/09/2022 9:39 AM EDT): Check LLE venous doppler, ro DVT COPD exacerbation 10/24/2022 11/06/2022 COPD exacerbation 06/28/2022 07/20/2022 Degeneration of lumbar intervertebral disc 04/29/2022 08/25/2022 Restless legs syndrome (RLS) 04/29/2022 11/09/2022 Acute on chronic respiratory failure with hypoxia 04/02/2022 07/20/2022 Acute on chronic respiratory failure with hypoxia and hypercapnia 04/02/2022 01/07/2024 Acute on chronic respiratory failure with hypoxia and hypercapnia 04/02/2022 06/03/2022 COPD exacerbation 02/14/2022 06/03/2022 Bradycardia 12/07/2016 08/25/2022 ST elevation myocardial infa rction (STEMI) of inferior wall 09/24/2016 07/08/2021 Nicotine use disorder 11/04/20102022 Assessment & Plan (07/08/2021 10:25 AM EST): Try Wellbutrin Anxiety sees psych 11/04/2010 3 Chronic bronchitis 1 Encounters Date Type Department Care Team Description 05/06/2025 12:13 PM EDT - 05/07/2025 10:32 AM EDT Hospital Encounter EDG 2A OBSERVATION UNIT [facility] [place] [address] Leonardo Alcazar MD Sugimoto, Malcom Fine MD COPD exacerbation (HCC) (Primary Dx); COPD, severe (HCC) Discharge Disposition: Home or Self Care 04/05/2025 Telephone CLINICAL OUTCOMES [facility] [place] [address] [address] Josefina Kendall, JEFFERSON Follow-up 03/30/2025 12:14 AM EDT - 04/04/2025 4:49 PM EDT Hospital Encounter [facility] [address] [place] [address] Odessa Anderson MD Moise, Ephese, MD COPD exacerbation (HCC) (Primary Dx) Discharge Disposition: Home or Self Care 03/30/2025 Travel from Last 3 Months Immunizations Immunization Administration Dates Next Due DT 06/27/2011 Td (Adult), Absorbed 06/27/2011 Tdap 01/22/2017,05/10/2009 Surgical History Surgery Date Site/Laterality Comments APPENDECTOMY CARDIAC CATHETERIZATION 09/09/2016 - 10/06/2016 2 stents placed and removed a clot PACEMAKER INSERTION 12/09/2016 Left Medtronic, dual chamber pacemaker by Dr. Resendez Medical History Medical History Date Comments severe copd Pneumonia [place] (myocardial infarction) (HCC) Heartburn CAD (coronary artery disease) Sleep apnea Hypertension Hyperlipidemia Sinus node dysfunction (HCC) Tachycardia-bradycardia (HCC) Paroxysmal A-fib (HCC) 12/07/2016 Pacemaker H/O heart artery stent Heart failure (HCC) 2023 Family History Medical History Relation Name Comments Cancer Father Heart Disease Father Cancer Mother Heart Disease Mother Cancer Sister 1 tumor in the br ain Heart Disease Sister 2 Relation Name Status Comments Father Mother Sister 1 Sister 2 Alive Social History Tobacco Use Types Packs/Day Years Used Date Smoking Tobacco: Every Day Cigarettes 3.8 44.9 Started: 08/09/1980 Passive Smoke Exposure: Current Smokeless Tobacco: Never Tobacco Cessation:Ready to Q uit: Not Asked; Counseling Given: Not Answered Alcohol Use Standard Drinks/Week Comments No 0 [...] place to sleep or slept in a senior living (including now)? Yes 03/26/2023 Housing Stability Vital Sign Answer Leroy e Recorded In the last 12 months, was t here a time when you were not able to pay the mortgage or rent on time? No 03/03/2024 In the past 12 months, how m any times have you moved where you were living? 1 03/03/2024 At any time in the past 12 m [facility], were you homeless or living in a senior living (including now)? No 03/03/2024 Overall Financial Resource Strain (CARDIA) Answe r Date Recorded How hard is it for you to pa y for the very basics like food, housing, medical care, and heating? Patient declined 05/06/2025 [facility] Occupat [facility] - Occupational Stress [...] have money to get more. Patient declined [facility] Utilities Answer Date Recorded In the past 12 months has th e electric, gas, oil, or water company threatened to shut off services in your home? Patient declined 05/06/2025 [facility] IP Transportation Answer D ate Recorded In [...] on file Sexual Orientation Not on file Last Filed Vital Signs Vital Sign Reading [...] lb) 05/06/2025 12:1 6 PM EDT Height 167.6 cm (5' 6 ) 03/30/2025 2:41 PM EDT Body Mass Index 24.69 03/30/2025 2:41 PM EDT Plan of Treatment Health Maintenance Due Date Last Done Comments Hepatitis B Vaccine (1 of 3 - 19+ 3-dose series) 1985 Pneumococcal Vaccine 50+ (1 of 2 - PCV) 1985 Cologuard 2011 Colon Cancer Screening 2011 Colonoscopy 2011 FIT 2011 Sigmoidoscopy 2011 Virtual Colonography 2011 Zoster (1 of 2) 2016 Annual Wellness Exam 08/25/2023 08/25/2022, 01/13/2019, 07/22/2017 (Postponed) COVID-19 Vaccine ( season) 2025 Influenza Vaccine (#1) 2025 7 (Declined), 07/29/2016 (Declined) Low Dose Lung Cancer Screening 02/27/2026 02/27/2025, 10/21/2024, 05/12/2024, Additional history exists DTaP/TDaP/Td (5 - Td or Tdap) 01/22/2027 01/22/2017, 06/27/2011, 06/27/2011, Additional history exists Meningococcal B Vaccine Aged Out No l onger eligible based on patient's age to complete this topic Goals Goal Patient Goal Type Associated Problems [...] medications available for administration through next RN Stopperer Assembler visit. General On track(2022 1:07 PM EDT) No Betty Matt RN patient wants to get stronger and build stamina to be able to ambulate without a wheelchair. General Yes Yu Coates RN Patient reports he wants to do better and get well. General On track(2023 3:30 PM EDT) Yes Bertha Tesfaye RN Patient will wear Bipap for atleast four hours nightly General Not on track(2023 12:48 PM EDT) Yes Leida Rockwell L Patient will monitor oxygen saturation once every hour to ensure saturation is staying between 88-92%. General Not on track(2023 12:45 PM EDT) Yes Locker Leida L Stay Tobacco Free Lifestyle Not on track(2021 1:53 PM EDT) No Romina Becker CMA Medical Devices Implanted Type Area Cottage Supervisor Device Identifier Shelf Expiration Date Model / Serial / Lot Lead Pacing Implantable Capsurefix Novus 58cm Atrial/Ventric - [id number] Implanted:Qty: 1 on 12/09/2016 by Tamir Resendez MD at [facility] Lead [employer]:PACING SYS 5076-58 / [id number] / Lead Pacing Implantable Capsurefix Novus 52cm Atrial/Ventric - [id number] Implanted:Qty: 1 on 12/09/2016 by Tamir Resendez MD at [facility] Lead [employer]:PACING SYS 5076-52 / [id number] / Pacemaker Advisa Dual Chamber Mri - [id number] Implanted:Qty: 1 on 12/09/2016 by Tamir Resendez MD at [facility] Pacemaker [employer]:PACING SYS A2DR01 / [id number] / Stent Xience Alpine Drug Eluting 3.0mm X 23mm - [id number] Implanted:Qty: 1 on 09/24/2016 by Kuldip Ro MD at [facility] Explanted:at [facility] (Quantity not on file) ONE[facility] LAB:VASC DEV [id number] / / [id number] Procedures Procedure Name Priority Date/Time Associated Diagnosis [...] AP PORTABLE STAT 05/06/2025 12:35 PM EDT [id number] A/B Routine 05/06/2025 12: 28 PM EDT MAGNESIUM LEVEL Add-On 05/06/2025 12:25 PM EDT BLOOD GAS, VENOUS STAT 05/06/2025 12: 25 PM EDT NT PROBNP STAT 05/06/2025 12:25 PM EDT TROPONIN-T HIGH SENSITIVITY BASELINE W/ REFLEX STAT 05/06/2025 12:25 PM EDT COMPREHENSIVE METABOLIC PANEL STAT 05/06/2025 12:25 PM EDT CBC WITH DIFF STAT 05/06/2025 12:25 PM EDT EK EKG 12 LEAD STAT 05/06/2025 12:14 PM EDT IP CONSULT TO CASE MANAGEMENT Routine 04/02/2025 9:24 AM EDT EXTRA LAVENDER Routine 04/02/2025 7:43 AM EDT EXTRA TUBES PANEL Routine 04/02/2025 7:4 3 AM EDT BASIC METABOLIC PANEL Early AM 04/02/2025 7:43 AM EDT ADMIT Routine 04/02/2025 6:58 AM EDT CBC WITH DIFF Early AM 04/02/2025 6:42 AM EDT BLOOD GAS, VENOUS Routine 04/01/2025 5:0 1 PM EDT POTASSIUM REPEAT Routine 04/01/2025 9:57 AM EDT ECG AND WAVEFORMS - TELEMETRY Routine 04/01/2025 7:57 AM EDT BASIC METABOLIC PANEL Early AM 04/01/2025 5:44 AM EDT CBC WITH DIFF Early AM 04/01/2025 5:44 AM EDT ECG AND WAVEFORMS - TELEMETRY Routine 03/31/2025 7:28 PM EDT ECG AND WAVEFORMS - TELEMETRY Routine 03/31/2025 2:56 PM EDT ECG AND WAVEFORMS - TELEMETRY Routine 03/31/2025 7:05 AM EDT BASIC METABOLIC PANEL Early AM 03/31/2025 6:21 AM EDT CBC WITH DIFF Early AM 03/31/2025 6:21 AM EDT ECG AND WAVEFORMS - TELEMETRY Routine 03/30/2025 7:53 PM EDT ECG AND WAVEFORMS - TELEMETRY Routine 03/30/2025 3:04 PM EDT ECG AND WAVEFORMS - TELEMETRY Routine 03/30/2025 2:53 PM EDT SCANNED EKG 03/30/2025 10:07 AM EDT TROPONIN-T HIGH SENSITIVITY 6 HR Timed 03/30/2025 7:07 AM EDT TROPONIN-T HIGH SENSITIVITY 2HR Timed 03/30/2025 2:44 AM EDT ADMIT Routine 03/30/2025 1:16 AM EDT XR CHEST AP PORTABLE TIFFANY 03/30/2025 12:49 AM EDT BLOOD GAS, VENOUS STAT 03/30/2025 12: 41 AM EDT TROPONIN-T HIGH SENSITIVITY BASELINE W/ REFLEX STAT 03/30/2025 12:41 AM EDT BASIC METABOLIC PANEL STAT 03/30/2025 12:41 AM EDT CBC WITH DIFF STAT 03/30/2025 12:41 AM EDT SALINE LOCK IV STAT 03/30/2025 12:20 AM EDT EK EKG 12 LEAD STAT 03/30/2025 12:[address] CHEST W CONTRAST TIFFANY 02/27/2025 2 :35 PM EDT from Last 3 Months or Most Recently Relevant to Health Maintenance Results * SCANNED EKG (05/07/2025 11:15 AM EDT) Only the most recent of2 resultswithin the time period is included. Anatomical Region Laterality Modality Other 05/07/2025 11:1 5 AM EDT us Unknown Provider IMG ECG ORDERABLES Final Result * (ABNORMAL) BASIC METABOLIC PANEL (05/07/2025 5:31 AM EDT) Only the most recent of5 resultswithin the time period is included. Sodium 136 136 - 145 mmol/L 05/07/2025 6:21 AM EDT [facility] Potassium 4.2 3.5 - 5.0 mmol/L 05/07/2025 6:21 AM EDT [facility] Chloride 93(L) 98 - 107 mmol/L 05/07/2025 6:21 AM EDT [facility] Total CO2 31(H) 22 - 29 mmol/L 05/07/2025 6:21 AM EDT [facility] Anion Gap 12 7 - 16 mmol/L 05/07/2025 6:21 AM EDT [facility] Calcium 8.7 8.6 - 10.4 mg/dL 05/07/2025 6:21 AM EDT [facility] Glucose Lvl 164(H) 70 - 99 mg/dL 05/07/2025 6:21 AM EDT [facility] BUN 13 6 - 20 mg/dL 05/07/2025 6:21 AM EDT [facility] Creatinine 0.60(L) 0.67 - 1.30 mg/dL 05/07/2025 6:21 AM EDT [facility] eGFR (CKD-EPIcr 2020) 112 >=60 mL/min/1.7 3 m2 05/07/2025 6:21 AM EDT [facility] Comment:Estimated GFR was ca lculated using the CKD-EPIcr (2020) equation refit without race. The equation is recommended by the National Kidney [employer] - [place] [employer] of Nephrology Task Force. Blood VENOUS BLOOD / Unknown Venipuncture / Unknown 05/07/2025 5:31 AM EDT 05/07/2025 5:53 AM EDT us Malcom Garcia MD CHEMISTRY ORDERABLES Final Result Performing Organization Address City/[facility]/ZIP Co de Phone Number [address], [address] [place] [phone] * ECG AND WAVEFORMS - TELEMETRY (05/06/2025 7:10 PM EDT) Only the most recent of10 resultswithin the time period is included. ECG INTERPRET NSR [facility] 05/06/2025 7:10 PM EDT Narrative [facility] - 05/06/2025 7:15 PM EDT ROUTINE (MS) MI 0.17 QRS 0.08 RR 0.76 QT 0.40 QTc 0.46 See Clinical Report link for waveform capture us Unknown Provider POINT OF CARE CARDIOLOGY Final Result Performing Organization Address City/[facility]/ZIP Co de Phone Number [facility] [address] [place] [address] * TROPONIN-T HIGH SENSITIVITY 2HR (05/06/2025 2:03 PM EDT) Only the most recent of2 resultswithin the time period is included. zg-oDwnmnjou-B 2HR 17 <22 ng/L 05/06/2025 2:27 PM EDT [facility] hs-cTnT 2Hr Delta from Baseline -2 <4 ng/L 05/06/2025 2:27 PM EDT [facility] Blood VENOUS BLOOD / Unknown Venipuncture / Unknown 05/06/2025 2:03 PM EDT 05/06/2025 2:06 PM EDT Narrative [facility] - 05/06/2025 2:27 PM EDT Ingestion of mina doses of biotin (>5 mg/day) taken within 8 hours of drawing blood sample can interfere with this immunoassay test. us Leonardo Alcazar MD CHEMISTRY ORDERABLES Final Resul t [facility] [address] [place] [id number] * XR CHEST AP PORTABLE (05/06/2025 12:35 PM EDT) Only the most recent of2 resultswithin the time period is included. Anatomical Region Laterality Modality Chest Radiographic Josefa [...] DIAGNOSTIC IMAGING ORDERABLE S Final Result * [id number] A/B (05/06/2025 12:28 PM EDT) [facility] CORONAVIRUS [id number] Not Detected Not Detected 05/06/2025 12:51 PM EDT [facility] Influenza A DNA Not Detected Not Detected 05/06/2025 12:51 PM EDT [facility] Influenza B DNA Not Detected Not Detected 05/06/2025 12:51 PM EDT [facility] Swab BOTH ANTERIOR NARES / Unknown 05/06/2025 12:28 PM EDT 05/06/2025 12:31 PM EDT Leonardo Alcazar MD MICROBIOLOGY - GENERAL ORDERABLE S Final Result Performing Organization Address City/State/[facility] Co de Phone Number [facility] [address] [place], [place] [phone] * TROPONIN-T HIGH SENSITIVITY BASELINE W/ REFLEX (05/06/2025 12:25 PM EDT) Only the most recent of2 resultswithin the time period is included. [facility] et-vJljnmkju-B 19 <22 ng/L 05/06/2025 12:50 PM EDT [facility] Blood VENOUS BLOOD / Unknown Venipuncture / Unknown 05/06/2025 12:25 PM EDT 05/06/2025 12:30 PM EDT Narrative [facility] - 05/06/2025 12:50 PM EDT Ingestion of mina doses of biotin (>5 mg/day) taken within 8 hours of drawing blood sample can interfere with this immunoassay test. Leonardo Alcazar MD CHEMISTRY ORDERABLES Final Resul t [facility] [address] [place] [address] * (ABNORMAL) BLOOD GAS, VENOUS (05/06/2025 12:25 PM EDT) Only the most recent of3 resultswithin the time period is included. pH Venous 7.37 7.32 - 7.42 pH [...] 12:25 PM EDT 05/06/2025 12:31 PM EDT Leonardo Alcazar MD CHEMISTRY ORDERABLES Final Resul t [facility] [address] [facility] , [address] [place], [place] [phone] * (ABNORMAL) CBC WITH DIFF (05/06/2025 12:25 PM EDT) Only the most recent of5 resultswithin the time period is included. WBC 8.4 3.7 - 10.3 x10(3)/mcL 05/06/2025 12:33 PM EDT [facility] RBC 4.29(L) 4.60 - 6.10 x10(6)/mcL 05/06/2025 12:33 PM EDT [facility] Hgb 12.3(L) 13.7 - 17.5 g/dL 05/06/2025 12:33 PM EDT [facility] Hct 38.1(L) 40.0 - 51.0 % 05/06/2025 12:33 PM EDT [facility] MCV 88.8 80.0 - 100.0 fL 05/06/2025 12:33 PM EDT [facility] MCH 28.7 26.0 - 34.0 pg 05/06/2025 12:[address] [facility] MCHC 32.3 30.7 - 35.5 g/dL 05/06/2025 12:33 PM EDT [facility] RDW 11.9 <=14.9 % 05/06/2025 12:[address] [facility] Platelet 207 155 - 369 x10(3)/mcL 05/06/2025 12:[address] [facility] MPV 9.1 8.8 - 12.5 fL 05/06/2025 12:33 PM EDT [facility] Neut Percent 71.4 % 05/06/2025 12:33 PM EDT [facility] Comment:Neutrophils equals s egs plus bands Imm Gran% 0.2 % 05/06/2025 12:33 PM EDT [facility] Comment:Automated count of m etamyelocytes, myelocytes and promyelocytes. Lymph Percent 20.9 % 05/06/2025 12:33 PM EDT [facility] [place] Percent 5.7 % 05/06/2025 12:[address] [facility] Eos Percent 1.3 % 05/06/2025 12:[address] [facility] Baso Percent 0.5 % 05/06/2025 12:[address] [facility] Neut # 6.0 1.6 - 6.1 x10(3)/[facility] 05/06/2025 12:[address] [facility] Comment:Neutrophils equals s egs plus bands IMMGRAN# 0.0 0.0 - 0.1 x10(3)/[facility] 05/06/2025 12:[address] [facility] Comment:Automated count of m etamyelocytes, myelocytes and promyelocytes. An absolute IG <0.1 is reported as 0.0. Lymph # 1.8 1.2 - 3.9 x10(3)/[facility] 05/06/2025 12:[address] [facility] [place] # 0.5 0.3 - 0.9 x10(3)/[facility] 05/06/2025 12:[address] [facility] Eos# 0.1 0.0 - 0.5 x10(3)/[facility] 05/06/2025 12:[address] [facility] Baso # 0.0 0.0 - 0.1 x10(3)/[facility] 05/06/2025 12:[address] [facility] Blood VENOUS BLOOD / Unknown Venipuncture / Unknown 05/06/2025 12:25 PM EDT 05/06/2025 12:30 PM EDT us Leonardo Alcazar MD HEMATOLOGY ORDERABLES Final Resu lt [facility] [address] [place] [address] * NT PROBNP (05/06/2025 12:25 PM EDT) NT Pro-BNP 205 <=229 pg/mL 05/06/2025 12:[address] [facility] Blood VENOUS BLOOD / Unknown Venipuncture / Unknown 05/06/2025 12:25 PM EDT 05/06/2025 12:30 PM EDT Narrative [facility] - 05/06/2025 12:50 PM EDT An [...] ORDERABLES Final Resul t Performing Organization Address [facility]/[place] [address] * MAGNESIUM LEVEL (05/06/2025 12:25 PM EDT) [facility] Magnesium 1.9 1.6 - 2.4 mg/dL 05/06/2025 4:27 PM EDT [facility] Blood VENOUS BLOOD / Unknown Venipuncture / Unknown 05/06/2025 12:25 PM EDT 05/06/2025 12:30 PM EDT Maclom Garcia MD CHEMISTRY ORDERABLES Final Result Performing Organization Address [facility] [place] [address] * (ABNORMAL) COMPREHENSIVE METABOLIC PANEL (05/06/2025 12:25 PM EDT) [facility] Sodium 137 136 - 145 mmol/L 05/06/2025 12:50 PM EDT [facility] Potassium 4.3 3.5 - 5.0 mmol/L 05/06/2025 12:50 PM EDT [facility] Chloride 96(L) 98 - 107 mmol/L 05/06/2025 12:50 PM EDT [facility] Total CO2 31(H) 22 - 29 mmol/L 05/06/2025 12:50 PM EDT [facility] Anion Gap 10 7 - 16 mmol/L 05/06/2025 12:50 PM EDT [facility] Calcium 8.5(L) 8.6 - 10.4 mg/dL 05/06/2025 12:50 PM EDT [facility] Glucose Lvl 103(H) 70 - 99 mg/dL 05/06/2025 12:50 PM EDT [facility] BUN 8 6 - 20 mg/dL 05/06/2025 12:50 PM EDT [facility] Creatinine 0.63(L) 0.67 - 1.30 mg/dL 05/06/2025 12:50 PM EDT [facility] Albumin 3.0(L) 3.5 - 5.2 gm/dL 05/06/2025 12:50 PM EDT [facility] Total Protein 6.4 6.4 - 8.3 gm/dL 05/06/2025 12:50 PM EDT [facility] Bili Total 0.4 0.2 - 1.4 mg/dL 05/06/2025 12:50 PM EDT [facility] ALT <5 <=41 U/L 05/06/2025 12:50 PM EDT [facility] AST 8 <=40 U/L 05/06/2025 12:50 PM EDT [facility] Alk Phos 110 40 - 129 U/L 05/06/2025 12:50 PM EDT [facility] eGFR (CKD-EPIcr 2020) 110 >=60 mL/min/1.7 3 m2 05/06/2025 12:50 PM EDT [facility] Comment:Estimated GFR was ca lculated using the CKD-EPIcr (2020) equation refit without race. The equation is recommended by the National Kidney [employer] - [place] [employer] of Nephrology Task Force. Blood VENOUS BLOOD / Unknown Venipuncture / Unknown 05/06/2025 12:25 PM EDT 05/06/2025 12:30 PM EDT us Leonardo Alcazar MD CHEMISTRY ORDERABLES Final Resul t [facility] [address] [place] [address] * EK EKG 12 LEAD (05/06/2025 12:14 PM EDT) Only the most recent of2 resultswithin the time period is included. Anatomical Region Laterality Modality Electrocardiogra phy 05/06/2025 12:2 2 PM EDT Impressions 05/06/2025 1:[address] 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1965 Requested By: [facility] Order Number: [id number] Reading MD: Tay Amezcua MD Measurements Intervals [place] Rate: 63 P: 120 MI: 141 QRS: 57 QRSD: 77 T: 74 QT: 419 QTc: 431 Interpretive Statements ELECTRONIC ATRIAL PACEMAKER ABNORMAL RHYTHM ECG Electronically Signed On 05-06-2025 13:41:30 EDT by Tay Amezcua MD us Leonardo Alcazar MD IMG ECG ORDERABLES Final Result * EXTRA LAVENDER (04/02/2025 7:43 AM EDT) Blood VENOUS BLOOD / Unknown Venipuncture / Unknown 04/02/2025 7:43 AM EDT 04/02/2025 10:32 AM EDT us Senthil Colmenares MD HEMATOLOGY ORDERABLES Fin al Result [facility] [address] [address] * POTASSIUM REPEAT (04/01/2025 9:57 AM EDT) Pathologist [facility] Potassium 4.7 3.5 - 5.0 mmol/L 04/01/2025 10:[address] [facility] Blood VENOUS BLOOD / Unknown Venipuncture / Unknown 04/01/2025 9:57 AM EDT 04/01/2025 10:24 AM EDT Ade Daniel APRN CHEMISTRY ORDERABLES Final Result Performing Organization Address [facility] de Phone Number [facility] [address] [address] * TROPONIN-T HIGH SENSITIVITY 6 HR (03/30/2025 7:07 AM EDT) [facility] [id number]-[id number] 6HR 20 <22 ng/L 03/30/2025 8:09 AM EDT [facility] hs-cTnT 6Hr Delta from Baseline -10 <12 ng/L 03/30/2025 8:[address] [facility] Blood VENOUS BLOOD / Unknown Venipuncture / Unknown 03/30/2025 7:07 AM EDT 03/30/2025 7:[address] [facility] - 03/30/2025 8:09 AM EDT Ingestion of mina doses of biotin (>5 mg/day) taken within 8 hours of drawing blood sample can interfere with this immunoassay test. Odessa Anderson MD CHEMISTRY ORDERABLES Final Res ult Performing Organization Address [facility] Co de Phone Number [facility] [address] [address] * CT CHEST W CONTRAST (02/27/2025 2:35 PM EDT) Anatomical Region Laterality Modality Chest Computed Tomogra phy 02/27/2025 2:35 PM EDT Impressions 02/27/2025 3:05 PM EDT Improving right hilar adenopathy. Improved nodular opacity adjacent to the pleura in the right lower lobe laterally. - Note: Radiology results need to be interpreted within a comprehensive clinical context. If you have questions about the radiology report, please contact the office of the ordering clinician. Narrative 02/27/2025 3:[address] CHEST WITH CONTRAST, 02/27/2025 2:35 PM CLINICAL HISTORY: -recurrent COPD exacerbatin, hx of mediastinal LAD in 10/2024- follow up imaging. COMPARISON: 10/21/2024 PROCEDURE COMMENTS: Multi detector CT scanning of the chest. Multiplanar reconstructions per protocol. Isovue 370 IV contrast given as recorded in EPIC. Dose 1 : CT DLP Total : 215.67 mGycm DLP Spiral Max : 212.38 mGycm Maximum CTDI Vol : 5.29 mGy FINDINGS: No mediastinal adenopathy. There is inferior right hilar adenopathy and right hilar lymph node measuring 15 x 24 mm. Previous measurement 21 x 29 mm therefore slightly smaller. More inferior right hilar lymph nodes also smaller previously measuring 17 mm maximum and now measuring 12 mm maximum. Some secretions in the upper left trachea just below the vocal cords. Diffuse emphysematous changes throughout the lungs. Calcified granuloma right upper lobe. Some peripheral subpleural reticular densities in the right lower lobe. These are also present in the left lower lobe to lesser degree. Right upper lobe stellate density appears stable however not well visualized secondary to breathing motion. Previously there is a more focal subpleural nodule in the right lower lobe which is decreasing when compared to prior study. Left rib deformities from rib fractures. Multifocal thoracic compression fractures including T11-T12 which were present prior study. There is a new wedge compression fracture of T7. There is moderate in degree at approximately 50% loss of vertebral body height. Coronary artery calcification: Moderate. Procedure Note Jeffrey Parker III, MD - 02/27/2025 CT CHEST WITH CONTRAST, 02/27/2025 2:35 PM CLINICAL HISTORY: -recurrent COPD exacerbatin, hx of mediastinal LAD in10/2024- follow up imaging. COMPARISON: 10/21/2024 PROCEDURE COMMENTS: Multi detector CT scanning of the chest. Multiplanar reconstructions per protocol. Isovue 370 IV contrast given as recorded inEPIC. Dose 1 : CT DLP Total : 215.67 mGycm DLP Spiral Max : 212.38 mGycm Maximum CTDI Vol : 5.29 mGy FINDINGS: No mediastinal adenopathy. There is inferior right hilaradenopathy and right hilar lymph node measuring 15 x 24 mm. Previous measurement 21 x29 mm therefore slightly smaller. More inferior right hilar lymph nodes alsosmaller previously measuring 17 mm maximum and now measuring 12 mm maximum. Some secretions in the upper left trachea just below the vocal cords. Diffuse emphysematous changes throughout the lungs. Calcified granulomaright upper lobe. Some peripheral subpleural reticular densities in the right lower lobe.These are also present in the left lower lobe to lesser degree. Right upper lobe stellate density appears stable however not wellvisualized secondary to breathing motion. Previously there is a more focal subpleural nodule in the right lower lobewhich is decreasing when compared to prior study. Left rib deformities from rib fractures. Multifocal thoracic compression fractures including T11-T12 which were present prior study. There is a newwedge compression fracture of T7. There is moderate in degree at [id number]% loss of vertebral body height. Coronary artery calcification: Moderate. IMPRESSION: Improving right hilar adenopathy. Improved nodular opacity adjacent to the pleura in the right lower lobe laterally. - Note: Radiology results need to be interpreted within a comprehensiveclinical context. If you have questions about the radiology report, please contactthe office of the ordering clinician. Aida Joyner MD [facility] CT ORDERABLES Final Result from Last 3 Months or Most Recently Relevant to Health Maintenance Insurance [id number] [place] [employer] Member Subscriber Plan / Payer (Ef fective 2020-Present) Name:Jonathan Matt Relation to Subscriber:Self Name:Jonathan Matt Payer ID:Not on file Group ID:[id number] Type:Not on file Address: [place] [id number] Member Subscriber Plan / Payer (Ef fective 2020-Present) Name:Jonathan Matt Relation to Subscriber:Self Name:Jonathan Matt Payer ID:Not on file Group ID:[id number] Type:Not on file Address: [place] [phone] Advance Directives For more information, please contact: [phone] * Full Code (Latest Code Status on File) Date Activated Date Inactivated Comments 05/06/2025 1:50 PM 05/07/2025 2:32 PM * Full Code Date Activated Date Inactivated Comments 03/30/2025 1:16 AM 04/04/2025 8:54 PM * Full Code Date Activated Date Inactivated Comments 02/26/2025 5:49 PM 03/01/2025 8:32 PM * Full Code Date Activated Date Inactivated Comments 10/22/2024 7:16 AM 10/24/2024 6:28 PM * Full Code Date Activated Date Inactivated Comments 09/13/2024 9:46 PM 09/17/2024 5:42 PM Care Teams Social And Human Services Assistant Relationship Specialty Start Date End Date Deion Quinn MD [address] [place] [address] PCP - General Family Medicine 02/27/25 Jose Salcido MD [address] [place] [id number] Family Medicine 06/28/22 Tamir Resendez MD [address] [place] [address] Consulting Physician Internal Medicine - Clinical Cardiac Electrophysiology 12/09/16
--- OUTSIDE RECORDS SUMMARY | 2025-06-16 13:30 | XMS_ITS | Encounter Summary ---
Author Organization [place] [address] Care Team Providers Care Earth Moving Technician Name Role Phone SindyNima Jorden SHUKLA Primary Care Provider [phone] Bertha Whaley APRN Primary Care Provider [phone] Jose Salcido MD Primary Care Provider [phone] Jose Salcido MD Primary Care Provider [phone] Jose Salcido MD Unavailable [phone] Tamir Resendez MD Unavailable [phone] Denise Bryan RN Unavailable Unavai Christina Farmer RN Unavailable Unavailable Jessika Fuentes RN Unavailable Unavailabl e Locker, Leida L Unavailable Unavailable Denise Bryan RN Unavailable Unavai Amadou Velasquez BA, COS Unavailable Unavailabl e Locker, Leida L Unavailable Unavailable Betty Matt RN Unavailable Unavailable Dixie Michelle SVP CHIEF MARKETING OFFICER Unavailable Unavailable Locker, Leida L Unavailable Unavailable Ko Hunter SVP CHIEF MARKETING OFFICER Unavailable Unavailable Ko Hunter SVP CHIEF MARKETING OFFICER Unavailable Unavailable Locker, Leida L Unavailable Unavailable Yu Coates RN Unavailable Unavailable Yu Coates RN Unavailable Unavailable Stefanie Villavicencio INTERNET SOURCER Unavailable Unava ilable Locker, Leida L Unavailable Unavailable Yu Coates RN Unavailable Unavailable Locker, Leida L Unavailable Unavailable Yu Coates RN Unavailable Unavailable Locker, Leida L Unavailable Unavailable Bertke, Oanh RN Unavailable Unavailable Oanh Andres RN Unavailable Unavailable Leida Rockwell Unavailable Unavailable Janis Marie RN Unavailable Unavaila Saida Ramírez APRN Primary Care Provider [phone] David Prajapati SVP CHIEF MARKETING OFFICER Unavailable Unavailable Locker, Leida L Unavailable Unavailable No Pcp, Per Patient Primary Care Provider Deion Childers MD Primary Care Provider [phone] Encounter Details Date Type Department Care Team (Late st Contact Info) Description 05/15/2021 Orders Only [facility] [address] [facility] [address] [place] [address] Tamir Resendez MD [address] [place] [address] Social History Tobacco Use Types Packs/Day Years Used Date Smoking Tobacco: Every Day Cigarettes 1.5 44.9 Started: 1979 Smokeless Tobacco: Never Comments:trying to quit smok ing Alcohol Use Standard Drinks/Week Comments No 0 (1 standard drink = 0.6 oz pur e alcohol) Overall Financial Resource Strain (CARDIA) Answe r Date Recorded Difficulty of Paying Living Expenses Not hard at all 06/29/2019 PHQ-2 Answer Date Recorded PHQ-2 Score 0 12/29/2018 Hunger Vital Sign Answer Date Recorded Worried About Running Out of Food in the Last Ye ar Never true 06/29/2019 Ran Out of Food in the Last Year Never true 06/29/2019 PRAPARE - Transportation Answer Date Re corded Lack of Transportation (Medical) No 06/29/2019 Lack of Transportation (Non-Medical) No 06/29/2019 Sexually Active Control Partners Comments Yes Female [...] have Coronavirus / COVID-19? No / Unsure 05/15/2021 10:24 AM EDT documented as of this encounter Functional Status [...] Blood Pressure 95/50( 025 8:36 AM EDT) Carmela Stevens LPN Eat better, exercise, reach an ideal body weight General No Romina Becker CMA Stay Tobacco Free Lifestyle Not on track( 022 1:53 PM EDT) Romina Villela CMA documented as of this encounter Procedures Procedure Name Priority Date/Time Associated Diagnosis Comments PACEART REPORT Routine 05/15/2021 1:49 PM EDT documented in this encounter Results * PACEART REPORT (05/15/2021 1:49 PM EDT) 05/15/2021 1:49 PM EDT Tamir Resendez MD [facility] CARDIAC CATH ORDERABLE S Final Result [facility] [address] [place] [address] documented in this encounter Visit Diagnoses Not [...] documented as of this encounter Care Teams Earth Moving Technician Relationship Specialty Start Date End Date Nima Callahan DO [address] [place] [address] PCP - General Family Medicine 07/11/19 05/25/22 Bertha Whaley APRN [address] [place] [address] PCP - General Nurse Practitioner 05/28/22 06/17/22 Jose Salcido MD [address] [place] [address] PCP - General Family Medicine 06/18/22 06/27/22 Jose Salcido MD [address] [place] [address] PCP - General Family Medicine 06/28/22 01/06/24 Saida Marcano APRN [address] [place] [address] [place] [address] PCP - General Nurse Practitioner-Family 01/07/24 No Pcp, Per Patient PCP - General 09/14/24 02/26/25 Deion Quinn MD [address] [place] [address] PCP - General Family Medicine 02/27/25 Jose Salcido MD [address] [place] [address] Family Medicine 06/28/22 Tamir Resendez MD [address] [place] [address] [place] [address] Consulting Physician Internal Medicine - Clinical Cardiac Electrophysiology 12/09/16 Denise Bryan, RN Soil Tester Registered Nurse 07/07/21 07/07/21 Christina Short RN Soil Tester Registered Nurse 07/08/21 05/20/22 Jessika Fuentes, JEFF[place] Soil Tester Registered Nurse 02/18/22 03/22/22 Locker, Leida L Respiratory Therapist Respiratory Therapist, Registered 02/18/22 05/20/22 Denise Bryan, RN Soil Tester Registered Nurse 04/06/22 04/29/22 Amadou Dominguez, BA, COS Case Electrical Controls Engineer 06/03/22 06/10/22 Locker, Leida L Respiratory Therapist Respiratory Therapist, Registered 06/29/22 07/16/22 Betty Matt, RN Soil Tester Registered Nurse 07/20/22 04/29/23 Dixie Michelle, SVP CHIEF MARKETING OFFICER Respiratory Therapist 11/02/22 3 Locker, Leida L Respiratory Therapist Respiratory Therapist, Registered 12/02/22 12/20/22 Ko Hunter, SVP CHIEF MARKETING OFFICER Respiratory Therapist 02/10/23 03/09/23 Ko Hunter, SVP CHIEF MARKETING OFFICER Respiratory Therapist 03/10/23 03/11/23 Locker, Leida L Respiratory Therapist Respiratory Therapist, Registered 04/27/23 05/09/23 Yu Coates, RN Soil Tester Registered Nurse 05/10/23 05/10/23 Yu Coates, RN Soil Tester Registered Nurse 05/13/23 05/19/23 Stefanie Villavicencio, INTERNET SOURCER Channeler Outsole 07/19/23 08/22/23 Moiz, Leida L Respiratory Therapist Respiratory Therapist, Registered 09/20/23 10/12/23 Yu Coates, RN Soil Tester Registered Nurse 10/13/23 10/25/23 Lockshelby, Leida L Respiratory Therapist Respiratory Therapist, Registered 10/22/23 10/26/23 Yu Coates, RN Soil Tester Registered Nurse 10/28/23 11/15/23 Locker, Leida L Respiratory Therapist Respiratory Therapist, Registered 11/15/23 12/02/23 Oanh Andres, RN Soil Tester 11/17/23 11/23/23 Oanh Andres, RN Soil Tester 11/24/23 11/24/23 Locker, Leida L Respiratory Therapist Respiratory Therapist, Registered 12/23/23 04/11/24 Janis Marie, RN Soil Tester Registered Nurse 12/31/23 01/05/24 David Prajapati, SVP CHIEF MARKETING OFFICER Respiratory Therapist 01/31/24 4 Locker, Leida L Respiratory Therapist Respiratory Therapist, Registered 05/12/24 05/23/24 documented as of this encounter
--- OUTSIDE RECORDS SUMMARY | 2025-06-16 13:30 | XMS_ITS | Encounter Summary ---
Author Organization [place] [address] Care Team Providers Care Director Of Knowledge Management Name Role Phone Jose Salcido MD Unavailable [phone] Tamir Resendez MD Unavailable [phone] Deion Quinn MD Primary Care Provider [phone] Reason for Visit * Reason Onset Date Comments Follow-up 04/05/2025 Encounter Details Date Type Department Care Team (Late st Contact Info) Description 04/05/2025 Telephone CLINICAL OUTCOMES [facility] [address] [place] [id number] Josefina Kendall, [place] Follow-up Social History Tobacco Use Types Packs/Day Years Used Date Smoking Tobacco: Every Day Cigarettes 3.8 44.9 Started: 08/09/1980 Passive Smoke Exposure: Current Smokeless Tobacco: Never Alcohol Use Standard Drinks/Week Comments No 0 (1 standard drink = 0.6 oz pur e alcohol) [facility] Utilities Answer Date Recorded In the past 12 months has [employer] electric, gas, oil, or water [employer] threatened to shut off services in your home? No 03/30/2025 Overall Financial Resource Strain (CARDIA) Answe r Date Recorded How hard is it for you to pa y for the very basics like food, housing, medical care, and heating? Not hard at all 03/30/2025 PHQ-2 Answer Date Recorded PHQ-2 Total Score 0 03/30/2025 [facility] [place] [facility] - Occupational Stress Questionnaire Answer Date Recorded Do you feel stress - tense, restless, nervous, or anxious, or unable to sleep at night because your mind is troubled all the time - these days? Not at all 03/30/2025 Exercise Vital Sign Answer Date Recorde d On average, how many days pe r week do you engage in moderate to strenuous exercise (like a brisk walk)? 0 days 03/30/2025 On average, how many minutes do you engage in exercise at this level? 0 min 03/30/2025 Hunger Vital Sign Answer Date Recorded Within the past 12 months, y ou worried that your food would run out before you got the money to buy more. Never true 03/30/20 25 Within the past 12 months, t he food you bought just didn't last and you didn't have money to get more. Never true 03/30/2025 PRAPARE - Transportation Answer Date Re [...] to sleep or slept in a senior care (including now)? Yes 03/26/2023 Housing Stability Vital Sign Answer Leroy e Recorded In the last 12 months, was t here a time when you were not able to pay the mortgage or rent on time? No 03/03/2024 In the past 12 months, how m any times have you moved where you were living? 1 03/03/2024 At any time in the past 12 m [facility], were you homeless or living in a senior care (including now)? No 03/03/2024 [facility] IP Transportation Answer D ate Recorded In the past 12 months, has l ack of reliable transportation kept you from medical appointments, meetings, work or from getting things needed for daily living? No 03/30/2025 Sexually Active Control Partners Comments Yes Female Sex and Gender Information Value Date Recorded Sex Assigned at Not on file Legal Sex Male 2:47 PM EDT Gender Identity Not on file Sexual Orientation Not on file documented as of this encounter Functional Status * Is the person deaf or does he/she have serious difficulty hearing? Answer Date of Assessment Author No 04/04/2025 4:05 PM EDT Ade Rodriguez RN * Is the person blind or does he/she have serious difficulty seeing even when wearing glasses? Answer Date of Assessment Author No 04/04/2025 4:05 PM EDT Ade Rodriguez RN * Does this person have serious difficulty walking or climbing stairs? Answer Date of Assessment Author Yes 04/04/2025 4:05 PM EDT Ade Rodriguez RN * Does this person have difficulty dressing or bathing? Answer Date of Assessment Author No 04/04/2025 4:05 PM EDT Ade Rodriguez RN * Because of a physical, mental or emotional condition, does this person have difficulty doing errands alone such as visiting a doctor's office or shopping? Answer Date of Assessment Author No 04/04/2025 4:05 PM EDT Ade Rodriguez RN documented as of this encounter Mental Status * Because of a physical, mental or emotional condition, does this person have serious difficulty concentrating, remembering or making decisions? Answer Entry Date Author No 04/04/2025 4:05 PM EDT Ade Rodriguez RN documented in this encounter Miscellaneous Notes * Telephone Encounter - Josefina Kendall RN - 05/04/2025 11:22 AM EDT 9.26 No Answer * Telephone Encounter - Janie Bah RN - 04/27/2025 11:21 AM EDT 9-19 mailbox full, no answer * Telephone Encounter - Josefina Kendall RN - 04/13/2025 12:50 PM EDT 9.5 Spoke to pt, see CO FU Call Flowsheet * Telephone Encounter - Josefina Kendall RN - 04/06/2025 1:53 PM EDT 8.29 No Answer * Telephone Encounter - Josefina Kendall RN - 04/05/2025 12:46 PM EDT 8.28 No Answer documented in this encounter Plan of Treatment [...] medications available for administration through next RN Auxiliary Power Equipment Operator visit. General On track(2022 1:07 PM EDT) No Betty Matt RN patient wants to get stronger and build stamina to be able to ambulate without a wheelchair. General Yes Branch, Yu Namrata, RN Patient reports he wants to do better and get well. General On track(2023 3:30 PM EDT) Yes Bertha Tesfaye RN Patient will wear Bipap for atleast four hours nightly General Not on track(2023 12:48 PM EDT) Yes LockBakari ryanLeida L Patient will monitor oxygen saturation once every hour to ensure saturation is staying between 88-92%. General Not on track(2023 12:45 PM EDT) Yes Locker, Leida L Stay Tobacco Free Lifestyle Not on track(2021 1:53 PM EDT) No Romina Becker CMA documented as of this encounter Visit Diagnoses Not on filedocumented in this encounter Care Teams Director Of Knowledge Management Relationship Specialty Start Date End Date Deion Quinn MD [address] [place] [address] PCP - General Family Medicine 02/27/25 Jose Salcido MD [address] [place] [phone] Family Medicine 06/28/22 Tamir Resendez MD [address] [place] [address] Consulting Physician Internal Medicine - Clinical Cardiac Electrophysiology 12/09/16 documented as of this encounter
--- NOTE | 2025-06-16 14:18 | XR_ITS ---
PROCEDURE INFORMATION: Exam: XR Thoracic Spine Exam date and time: 06/16/2025 2:13 PM Age: 59 years old Clinical indication: Other: Compression fracture TECHNIQUE: Imaging protocol: Radiologic exam of the thoracic spine. Views: 3 views. COMPARISON: CR XR THORACIC SPINE 3V 06/16/2025 2:13 PM FINDINGS: Tubes, catheters and devices: Transvenous pacemaker leads in the heart Bones/joints: Multiple compression fractures of unknown age of the thoracic spine.. Soft tissues: Unremarkable. Lungs: Calcified right hilar nodes consistent with prior granulomatous disease IMPRESSION: Multiple compression fractures of unknown age of the thoracic spine..
--- NOTE | 2025-06-16 14:18 | XR_ITS ---
PROCEDURE INFORMATION: Exam: XR Cervical Spine Exam date and time: 06/16/2025 2:11 PM Age: 59 years old Clinical indication: Other: Compression fracture TECHNIQUE: Imaging protocol: Radiologic exam of the cervical spine. Views: 2 or 3 views. COMPARISON: CR XR CERVICAL SPINE 3V 06/16/2025 2:11 PM FINDINGS: Tubes, catheters and devices: Transvenous pacemaker leads Bones/joints: C5 through C7 and seen well on the lateral.. Possible compression of C4. Consider dedicated CT for further evaluation. Soft tissues: Unremarkable. IMPRESSION: 1. C5 through C7 and seen well on the lateral.. 2. Possible compression of C4. Consider dedicated CT for further evaluation.
--- NOTE | 2025-06-16 14:18 | XR_ITS ---
PROCEDURE INFORMATION: Exam: XR Lumbosacral Spine Exam date and time: 06/16/2025 2:19 PM Age: 59 years old Clinical indication: Other: Compression fracture TECHNIQUE: Imaging protocol: Radiologic exam of the lumbosacral spine. Views: 2 or 3 views. COMPARISON: CT LUMBAR SPINE WO CON 01/12/2021 2:46 AM FINDINGS: Bones/joints: Intervertebral disc spaces are narrowed L5/S1 consistent with degenerative disc disease.. Soft tissues: Unremarkable. Organs: There are multiple bilateral renal collecting system calcifications.There is no evidence of acute fracture.There is no evidence of malalignment or dislocation. IMPRESSION: 1. There are multiple bilateral renal collecting system calcifications.There is no evidence of acute fracture.There is no evidence of malalignment or dislocation. 2. Intervertebral disc spaces are narrowed L5/S1 consistent with degenerative disc disease..
== END 2025-06-16 23:59 | disposition home or self-care (01) ==
LOC: RAD 13:28
PROVIDERS: PCP Family Medicine; Visit Provider Family Medicine
DX: S22.000A Wedge compression fracture of unspecified thoracic vertebra, initial encounter for closed fracture (principal); N20.0 Calculus of kidney; M51.379 Other intervertebral disc degeneration, lumbosacral region without mention of lumbar back pain or lower extremity pain; R93.7 Abnormal findings on diagnostic imaging of other parts of musculoskeletal system; Z95.0 Presence of cardiac pacemaker
CPT/HCPCS: 72040; 72072; 72100